=== PATIENT | female | born 1940 | race Caucasian/White ===

== ENCOUNTER 2016-03-08 15:28 | Inpatient (IN) | payer MEDICARE, OTHER ==
[2016-03-08] MEDS ORDERED: [UNRECOGNIZED DRUG - OTHER] IV SCH (19:15)
[2016-03-08] MEDS ORDERED: Ondansetron HCl/PF 4 MG/2 ML Vial IVP PRN (19:15)
[2016-03-08] MEDS ORDERED: Bisacodyl 10 MG SUPP PR PRN (19:15)
[2016-03-08] MEDS ORDERED: SOD CHLORIDE IV SCH (19:15)
[2016-03-08] MEDS ORDERED: VANCOMYCIN IV SCH (19:15)
[2016-03-08] MEDS ORDERED: Milk Of Magnesia 30 ML UDCUP PO PRN (19:34)
[2016-03-08] MEDS ORDERED: Nicotine 21 MG PATCH TD SCH (20:00)
[2016-03-08] MEDS: traMADol HCl 50 MG TAB PO PRN (20:16)
[2016-03-08] MEDS: Gabapentin 300 MG CAP PO SCH (20:18)
[2016-03-08] MEDS: traZODone HCl 50 MG TAB PO SCH (20:18)
[2016-03-08] MEDS: Simvastatin 10 MG TAB PO SCH (20:19)
[2016-03-08 20:48] LABS: Vancomycin, Random 23.9 ug/mL (See Comment)
[2016-03-08 20:50] LABS: Anion Gap 11 mmol/L (10-20); BUN (Urea Nitrogen) 23 mg/dL (9.8-20.1); Calc. Creatinine Clearance 51 mL/min (70-130); Calcium 8.3 mg/dL (7.8-10.44); Carbon Dioxide 24 mmol/L (23-31); Chloride 106 mmol/L (98-107); Estimated GFR-MDRD 57
[2016-03-08] MEDS ORDERED: Docusate 100 MG CAP PO PRN (21:00)
[2016-03-09 05:10] LABS: #Basophils 0.1 thou/uL (0.0-0.2); #Eosinphils 0.2 thou/uL (0.0-0.7); #Lymphocytes 0.5 thou/uL (1.20-3.40); #Monocytes 0.4 thou/uL (0.11-0.59); #Neutrophils 4.3 thou/uL (1.40-6.50); %Basophils 1.2 % (0.0-1.0); %Eosinophils 4.1 % (0.0-10.0); %Lymphocytes 9.8 % (21.0-51.0); %Monocytes 6.9 % (0.0-10.0); Hematocrit 32.9 % (36.0-47.0); Mean Platelet Volume 6.5 fL (7.4-10.4); Red Blood Cell (RBC) Count 3.68 mill/uL (4.20-5.40); White Blood Cell (WBC) Count 5.5 thou/uL (4.8-10.8)
[2016-03-09 05:30] LABS: ALT (SGPT) 9 U/L (0-55); AST (SGOT) 11 U/L (5-34); Alkaline Phosphatase 56 U/L (40-150); Anion Gap 11 mmol/L (10-20); BUN (Urea Nitrogen) 19 mg/dL (9.8-20.1); Bilirubin, Total 0.2 mg/dL (0.2-1.2); Calc. Creatinine Clearance 57 mL/min (70-130); Calcium 8.6 mg/dL (7.8-10.44); Carbon Dioxide 26 mmol/L (23-31); Chloride 106 mmol/L (98-107); Estimated GFR-MDRD 66; Globulin 2.7 g/dL (2.4-3.5); Protein, Total 5.3 g/dL (5.8-8.1)
[2016-03-09] MEDS ORDERED: Sodium Chloride 0.9% 10 ML ONE ×2 (08:05→19:54)
[2016-03-09] MEDS: Cefepime 1 GM in Sodium Chloride 0.9% 100 ML IVPB SCH ×2 (08:15→20:01)
[2016-03-09] MEDS: CeleCOXIB 100 MG CAP PO SCH (08:16)
[2016-03-09] MEDS: Furosemide 40 MG TAB PO SCH (08:17)
[2016-03-09] MEDS: Enoxaparin Sodium 30 MG/0.3 ML SYRINGE SC SCH (08:17)
[2016-03-09] MEDS: Gabapentin 300 MG CAP PO SCH ×3 (08:17→20:31)
[2016-03-09] MEDS: tiZANidine HCl 4 MG TAB PO SCH (08:18)
[2016-03-09] MEDS: traMADol HCl 50 MG TAB PO PRN ×3 (08:18→20:32)
[2016-03-09] MEDS: Potassium Chloride 20 MEQ TAB PO SCH (08:18)
[2016-03-09] MEDS ORDERED: VANCOMYCIN IVPB PRN (09:39)
[2016-03-09] MEDS: Nicotine 21 MG PATCH TD SCH (10:39)
[2016-03-09] MEDS: Vancomycin HCl 750 MG in Sodium Chloride 0.9% 250 ML 250 ML IVPB SCH (10:39)
[2016-03-09] MEDS: Vancomycin HCl 500 MG in Sodium Chloride 0.9% 100 ML IVPB SCH (10:39)
[2016-03-09] MEDS ORDERED: Artificial Tear Sol 15 ML BOT EA EYE PRN (13:33)
--- NOTE | 2016-03-09 16:15 | HP ---
CHIEF COMPLAINTS: Right total knee infection, status post removal of hardware and replacement of spacers and antibiotic beads for long-term IV antibiotics. HISTORY OF PRESENT ILLNESS: This is a 75-year-old female who had a right knee replacement and then had to have a revision of the right knee replacement because of loosening, which occurred in October. She apparently fell few weeks after ruptured her quadriceps tendon, which had to be repaired. She apparently presented with knee pain and was noticed to have infection. Her implant was removed. Beads and iron spaces were placed and Infectious Disease was consulted. She is going Peptoniphilus in the anaerobic cultures and the recommendation is for 6 weeks of IV antibiotics, total with vancomycin and Maxipime. She is currently doing well. Denies any complaints, toe touch weightbearing. She apparently was able to sit in a chair, tolerating her diet and does have some diarrhea. Denies any fever or chills. Pain is well controlled with tramadol. PAST MEDICAL HISTORY: 1. Dyslipidemia 2. Depression 3. DJD 4. GERD 5. Peripheral neuropathy 6. IBS PAST SURGICAL HISTORY: 1. Multiple joint replacements. 2. Normal cardiac catheterization. 3. Cholecystectomy. 4. Apparently, history of kidney stone with removal. ALLERGIES: PHENOBARBITAL and AUGMENTIN. FAMILY HISTORY: Coronary artery disease. MEDICATIONS: She has been transferred here on the following medications; 1. Maxipime 1 gram IV b.i.d. 2. Celebrex 200 mg daily. 3. Bentyl 10 mg t.i.d. 4. Colace 100 mg b.i.d. 5. Lovenox 30 mg subcutaneous daily. 6. Lasix 40 mg daily. 7. Gabapentin 600 mg t.i.d. 8. Nicotine patch 21 mg daily. 9. Oxycodone 5 mg q.6 hours p.r.n. 10. Protonix 40 mg daily. 11. Potassium 20 mEq daily. 12. Sertraline 50 mg b.i.d. 13. Simvastatin 10 mg daily. 14. Tizanidine 4 mg daily. 15. Tramadol 100 mg q.i.d. 16. Trazodone 50 mg at bedtime. 17. Vancomycin 1.25 grams IV daily. PSYCHOSOCIAL HISTORY: She is a smoker. Currently in a nicotine patch, but no alcohol or IV drug abuse. REVIEW OF SYSTEMS: CARDIOVASCULAR: Denies any chest pain, shortness of breath, palpitations, paroxysmal nocturnal dyspnea, orthopnea, pedal edema. RESPIRATORY: Denies any chronic cough, expectoration or pleuritic type chest pain. GASTROINTESTINAL: Denies any nausea, vomiting, diarrhea, constipation, hematemesis, melena, hematochezia. GENITOURINARY: Denies any frequency, urgency, dysuria or hematuria. 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 HEENT: No diffuse speech and eating or swallowing. PHYSICAL EXAMINATION: GENERAL: A very pleasant 75-year-old female resting comfortably, in no acute distress. She responds appropriately to questions. She is alert, awake and oriented x3. VITAL SIGNS: She is afebrile. Heart rate is 61, respirations are 18, blood pressure is 142/61 and oxygen saturation is 93%. HEENT: Normocephalic and atraumatic. Pupils are equal and reactive to light and accommodation. NECK: No JVD, thyromegaly, cervical adenopathy, throat exudates or carotid bruits. CARDIOVASCULAR SYSTEM: S1 and S2+. Rate and rhythm regular. RESPIRATORY SYSTEM: Normal vesicular breath sounds heard in all lung [place]. ABDOMEN: Soft and nontender. Bowel sounds heard in all quadrants. EXTREMITIES: Right knee with dressing and knee immobilizer. No neurovascular compromise. CENTRAL NERVOUS SYSTEM: Grossly nonfocal. LABORATORY VALUES: Done this morning shows a white count of 5.5, H\T\H is 10.5 and 32.9. Sed rate is 92. Chemistry shows a sodium of 139, potassium of 4.1, BUN and creatinine are 19 and 1.84. CRP is 0.6, AST and ALT are normal. Vancomycin random was 23.9. IMPRESSION: 1. Right total knee infection, prosthetic infection, status post removal of prosthesis and placement of antibiotic beads. 2. Right quadriceps rupture, status post repair. 3. Irritable bowel syndrome. 4. Degenerative joint disease. 5. Dyslipidemia. 6. Depression. PLAN: 1. Continue current medications. 2. Vancomycin levels to be adjusted by pharmacy. 3. DVT and stress ulcer prophylaxis. 4. Decubitus precautions. 5. Bowel regimen. 6. Probiotics. 7. Weekly CBC, CRP, CMP and sed rate. 8. Outpatient follow up with Dr. Baptiste, in 2 weeks. 9. Therapy with weightbearing restrictions per Dr. Baptiste. 10. Discussed with the patient in detail and all questions answered. MTDD
[2016-03-09] MEDS: Simvastatin 10 MG TAB PO SCH (20:32)
[2016-03-09] MEDS: traZODone HCl 50 MG TAB PO SCH (20:32)
[2016-03-10] MEDS: traMADol HCl 50 MG TAB PO PRN ×4 (05:36→22:04)
[2016-03-10] MEDS: Cefepime 1 GM in Sodium Chloride 0.9% 100 ML IVPB SCH ×2 (08:20→20:22)
[2016-03-10] MEDS: CeleCOXIB 100 MG CAP PO SCH (08:21)
[2016-03-10] MEDS: Gabapentin 300 MG CAP PO SCH ×3 (08:22→20:21)
[2016-03-10] MEDS: Potassium Chloride 20 MEQ TAB PO SCH (08:22)
[2016-03-10] MEDS: Enoxaparin Sodium 30 MG/0.3 ML SYRINGE SC SCH (08:22)
[2016-03-10] MEDS: Furosemide 40 MG TAB PO SCH (08:22)
[2016-03-10] MEDS: Saccharomyces boulardii 250 MG CAP PO SCH (08:22)
[2016-03-10] MEDS: tiZANidine HCl 4 MG TAB PO SCH (08:23)
[2016-03-10 09:26] LABS: Vancomycin, Trough 20.3 ug/mL
[2016-03-10] MEDS: Vancomycin HCl 750 MG in Sodium Chloride 0.9% 250 ML 250 ML IVPB SCH (10:17)
[2016-03-10] MEDS: Nicotine 21 MG PATCH TD SCH (10:17)
[2016-03-10] MEDS: Vancomycin HCl 500 MG in Sodium Chloride 0.9% 100 ML IVPB SCH (10:18)
--- NOTE | 2016-03-10 13:09 | PRG ---
DATE OF PROGRESS NOTE: 03/10/2016 SUBJECTIVE: Ms. Cruz is doing well. Denies any complaints, resting comfortably, tolerating her therapy and her antibiotics. Denies any concerns. OBJECTIVE: VITAL SIGNS: She is afebrile, heart rate is 63, respirations 18, oxygen saturation is 95%, blood pr essure 139/66. CARDIOVASCULAR: S1, S2 plus. RESPIRATORY: Normal vesicular breath sounds. ABDOMEN: Soft, nontender, bowel sounds heard in all quadrants. Right leg with dressing. CENTRAL N ERVOUS SYSTEM: Generalized weakness. IMPRESSION: 1. Right knee prosthetic infection requiring removal of hardware and placement of antibiotic spacer s. 2. Quadriceps tendon rupture status post repair. 3. Dyslipidemia. 4. Irritable bowel syndrome. 5. Gastroesophageal reflux disease. 6. Improving diarrhea. PLAN: 1. Continue probiotics. 2. Antibiotics for 5 weeks since admission. 3. Weekly CBC, CRP, sed rate. 4. Outpatient follow with Dr. Baptiste in 2 weeks from admission 5. Wound care. 6. DVT and stress ulcer prophylaxis. 7. Decubitus precautions.
[2016-03-10] MEDS: Simvastatin 10 MG TAB PO SCH (20:21)
[2016-03-10] MEDS: traZODone HCl 50 MG TAB PO SCH (20:22)
[2016-03-11] MEDS: traMADol HCl 50 MG TAB PO PRN ×2 (04:33→12:01)
[2016-03-11] MEDS: Cefepime 1 GM in Sodium Chloride 0.9% 100 ML IVPB SCH ×2 (08:40→20:36)
[2016-03-11] MEDS: Gabapentin 300 MG CAP PO SCH ×3 (09:10→20:36)
[2016-03-11] MEDS: CeleCOXIB 100 MG CAP PO SCH (09:12)
[2016-03-11] MEDS: Potassium Chloride 20 MEQ TAB PO SCH (09:13)
[2016-03-11] MEDS: Enoxaparin Sodium 30 MG/0.3 ML SYRINGE SC SCH (09:13)
[2016-03-11] MEDS: Saccharomyces boulardii 250 MG CAP PO SCH (09:13)
[2016-03-11] MEDS: Furosemide 40 MG TAB PO SCH (09:13)
[2016-03-11] MEDS: tiZANidine HCl 4 MG TAB PO SCH (09:13)
[2016-03-11 09:35] LABS: Vancomycin, Trough 17.4 ug/mL
[2016-03-11] MEDS: Nicotine 21 MG PATCH TD SCH (10:25)
[2016-03-11] MEDS: Vancomycin HCl 750 MG in Sodium Chloride 0.9% 250 ML 250 ML IVPB SCH (10:25)
[2016-03-11] MEDS: Vancomycin HCl 500 MG in Sodium Chloride 0.9% 100 ML IVPB SCH (11:18)
[2016-03-11] MEDS: oxyCODONE 5 MG TAB PO PRN ×2 (14:54→20:43)
[2016-03-11] MEDS: traZODone HCl 50 MG TAB PO SCH (20:34)
[2016-03-11] MEDS: Simvastatin 10 MG TAB PO SCH (20:36)
[2016-03-12] MEDS: Acetaminophen 325 MG TAB PO PRN ×2 (08:24→14:55)
[2016-03-12] MEDS: CeleCOXIB 100 MG CAP PO SCH (08:25)
[2016-03-12] MEDS: Gabapentin 300 MG CAP PO SCH ×3 (08:25→20:12)
[2016-03-12] MEDS: Furosemide 40 MG TAB PO SCH (08:25)
[2016-03-12] MEDS: tiZANidine HCl 4 MG TAB PO SCH (08:25)
[2016-03-12] MEDS: Saccharomyces boulardii 250 MG CAP PO SCH (08:25)
[2016-03-12] MEDS: Potassium Chloride 20 MEQ TAB PO SCH (08:25)
[2016-03-12] MEDS: Cefepime 1 GM in Sodium Chloride 0.9% 100 ML IVPB SCH ×2 (08:25→20:13)
[2016-03-12] MEDS: traMADol HCl 50 MG TAB PO PRN ×2 (08:26→14:55)
[2016-03-12] MEDS: Enoxaparin Sodium 30 MG/0.3 ML SYRINGE SC SCH (08:26)
[2016-03-12] MEDS: Vancomycin HCl 750 MG in Sodium Chloride 0.9% 250 ML 250 ML IVPB SCH (10:46)
[2016-03-12] MEDS: Vancomycin HCl 500 MG in Sodium Chloride 0.9% 100 ML IVPB SCH (10:47)
[2016-03-12] MEDS: Nicotine 21 MG PATCH TD SCH (10:55)
[2016-03-12] MEDS: oxyCODONE 5 MG TAB PO PRN ×2 (10:58→20:13)
--- NOTE | 2016-03-12 15:28 | PRG ---
DATE OF SERVICE: 03/12/2016 SUBJECTIVE: The patient feels well, sitting up in the chair and watching TV. States that she has n o pain in her legs at rest. She is eating well, sleeping well with no complaints. OBJECTIVE: Shows her blood pressure 125/92, temperature 97, pulse 64, respirations 18, O2 sats 96%. Lungs are clear. Cardiac examination shows regular rhythm. Abdomen is soft and nontender. Skin and extremities show right leg and knee immobilizer with good pedal pulses. ASSESSMENT: Resolving right prosthetic knee infection with removal of hardware and placement of ant ibiotic spacers on antibiotics for 5 weeks. PLAN: Continue DVT and stress ulcer prophylaxis. Continue IV cefepime and vancomycin, pharmacy to measure levels.
[2016-03-12] MEDS: traZODone HCl 50 MG TAB PO SCH (20:13)
[2016-03-12] MEDS: Simvastatin 10 MG TAB PO SCH (20:13)
[2016-03-13] MEDS: traMADol HCl 50 MG TAB PO PRN ×2 (06:59→14:22)
[2016-03-13] MEDS: Cefepime 1 GM in Sodium Chloride 0.9% 100 ML IVPB SCH ×2 (08:22→21:00)
[2016-03-13] MEDS: Enoxaparin Sodium 30 MG/0.3 ML SYRINGE SC SCH (08:23)
[2016-03-13] MEDS: Gabapentin 300 MG CAP PO SCH ×3 (08:24→21:03)
[2016-03-13] MEDS: Saccharomyces boulardii 250 MG CAP PO SCH (08:24)
[2016-03-13] MEDS: Furosemide 40 MG TAB PO SCH (08:24)
[2016-03-13] MEDS: Potassium Chloride 20 MEQ TAB PO SCH (08:24)
[2016-03-13] MEDS: CeleCOXIB 100 MG CAP PO SCH (08:24)
[2016-03-13] MEDS: Nicotine 21 MG PATCH TD SCH (08:26)
[2016-03-13] MEDS: tiZANidine HCl 4 MG TAB PO SCH (08:33)
[2016-03-13 10:21] LABS: Vancomycin, Trough 22.1 ug/mL
[2016-03-13] MEDS: Vancomycin HCl 1 GM in Sodium Chloride 0.9% 250 ML 250 ML IVPB SCH (10:45)
[2016-03-13] MEDS: HYDROcodone/Acetaminophen 10/325 mg Tablet PO PRN ×3 (10:46→21:03)
[2016-03-13] MEDS: Vancomycin HCl 750 MG in Sodium Chloride 0.9% 250 ML 250 ML IVPB SCH (10:56)
--- NOTE | 2016-03-13 11:01 | PRG ---
DATE OF SERVICE: 03/13/2016 SUBJECTIVE: The patient complains of some itching in the groin area, sacral area with some mild red rash noticed, no other complaints. Still taking oxycodone for pain with good control, but not quit e lasting 4 hours. OBJECTIVE: VITAL SIGNS: Shows blood pressure 136/67, temperature 97, pulse 54, respirations 18, O2 sats 95% on room air. EXTREMITIES: Right knee shows no swelling, redness, warmth or tenderness, some mild erythema in the groin. LUNGS: Clear. CARDIAC EXAMINATION: Displays regular rhythm, no gallops or murmurs. ASSESSMENT: 1. Resolving septic knee, status post removal of hardware with placement of spacers. No evidence f or recurrent infection at this time. 2. Possible heat rash. Will attempt to take another shower today. 3. Short controlled pain with oxycodone. We will switch to hydrocodone 10/325 to see if has extend ed pain relief.
[2016-03-13] MEDS: Simvastatin 10 MG TAB PO SCH (21:03)
[2016-03-13] MEDS: traZODone HCl 50 MG TAB PO SCH (21:03)
[2016-03-14] MEDS: HYDROcodone/Acetaminophen 10/325 mg Tablet PO PRN ×4 (06:21→21:30)
[2016-03-14] MEDS: CeleCOXIB 100 MG CAP PO SCH (08:25)
[2016-03-14] MEDS: Cefepime 1 GM in Sodium Chloride 0.9% 100 ML IVPB SCH ×2 (08:25→20:24)
[2016-03-14] MEDS: Enoxaparin Sodium 30 MG/0.3 ML SYRINGE SC SCH (08:26)
[2016-03-14] MEDS: Furosemide 40 MG TAB PO SCH (08:27)
[2016-03-14] MEDS: Gabapentin 300 MG CAP PO SCH ×3 (08:27→20:24)
[2016-03-14] MEDS: Saccharomyces boulardii 250 MG CAP PO SCH (08:27)
[2016-03-14] MEDS: Potassium Chloride 20 MEQ TAB PO SCH (08:27)
[2016-03-14] MEDS: tiZANidine HCl 4 MG TAB PO SCH (08:28)
[2016-03-14] MEDS: Nicotine 21 MG PATCH TD SCH (10:16)
[2016-03-14] MEDS: Vancomycin HCl 1 GM in Sodium Chloride 0.9% 250 ML 250 ML IVPB SCH (10:17)
[2016-03-14] MEDS: Simvastatin 10 MG TAB PO SCH (20:24)
[2016-03-14] MEDS: traZODone HCl 50 MG TAB PO SCH (20:25)
[2016-03-15] MEDS: HYDROcodone/Acetaminophen 10/325 mg Tablet PO PRN ×5 (03:46→21:56)
[2016-03-15] MEDS: traMADol HCl 50 MG TAB PO PRN (06:49)
[2016-03-15] MEDS: Cefepime 1 GM in Sodium Chloride 0.9% 100 ML IVPB SCH ×2 (08:21→20:13)
[2016-03-15] MEDS: CeleCOXIB 100 MG CAP PO SCH (08:22)
[2016-03-15] MEDS: Furosemide 40 MG TAB PO SCH (08:23)
[2016-03-15] MEDS: Enoxaparin Sodium 30 MG/0.3 ML SYRINGE SC SCH (08:23)
[2016-03-15] MEDS: Gabapentin 300 MG CAP PO SCH ×3 (08:23→20:14)
[2016-03-15] MEDS: tiZANidine HCl 4 MG TAB PO SCH (08:24)
[2016-03-15] MEDS: Potassium Chloride 20 MEQ TAB PO SCH (08:24)
[2016-03-15] MEDS: Saccharomyces boulardii 250 MG CAP PO SCH (08:24)
[2016-03-15 09:58] LABS: Vancomycin, Trough 21.4 ug/mL
[2016-03-15] MEDS: Vancomycin HCl 1 GM in Sodium Chloride 0.9% 250 ML 250 ML IVPB SCH (10:16)
[2016-03-15] MEDS: Nicotine 21 MG PATCH TD SCH (10:17)
--- NOTE | 2016-03-15 13:22 | PRG ---
DATE OF SERVICE: 03/15/2016 SUBJECTIVE: Ms. Cruz is doing well. Denies any complaints, resting comfortably, tolerating her medications. OBJECTIVE: VITAL SIGNS: She is afebrile, heart rate is 60, respirations 20, and blood pressure is 139/66. CARDIOVASCULAR: S1, S2 plus. RESPIRATORY: Normal vesicular breath sounds. ABDOMEN: Soft, nontender, bowel sounds heard in all quadrants. EXTREMITIES: Without cyanosis or clubbing. Peripheral pulses are palpable. IMPRESSION: 1. Right knee septic arthritis, status post removal of hardware and placement of antibiotic spacers . 2. Irritable bowel syndrome. 3. Dyslipidemia. 4. Gastroesophageal reflux disease. 5. Quadriceps tendon rupture, status post repair. PLAN: 1. Recheck CBC, CRP, sed rate tomorrow. 2. Continue antibiotics. 3. Pharmacy to adjust vancomycin dosing. 4. Monitor for diarrhea. 5. DVT and stress ulcer prophylaxis. 6. Decubitus precautions. 7. Physical therapy discussed with patient in detail.
[2016-03-15] MEDS: traZODone HCl 50 MG TAB PO SCH (20:14)
[2016-03-15] MEDS: Simvastatin 10 MG TAB PO SCH (20:14)
[2016-03-16] MEDS: HYDROcodone/Acetaminophen 10/325 mg Tablet PO PRN ×3 (05:50→20:18)
[2016-03-16] MEDS: Potassium Chloride 20 MEQ TAB PO SCH (08:21)
[2016-03-16] MEDS: Enoxaparin Sodium 30 MG/0.3 ML SYRINGE SC SCH (08:21)
[2016-03-16] MEDS: Saccharomyces boulardii 250 MG CAP PO SCH (08:21)
[2016-03-16] MEDS: CeleCOXIB 100 MG CAP PO SCH (08:22)
[2016-03-16] MEDS: Furosemide 40 MG TAB PO SCH (08:22)
[2016-03-16] MEDS: Gabapentin 300 MG CAP PO SCH ×3 (08:22→20:17)
[2016-03-16] MEDS: tiZANidine HCl 4 MG TAB PO SCH (08:22)
[2016-03-16] MEDS: Cefepime 1 GM in Sodium Chloride 0.9% 100 ML IVPB SCH ×2 (08:23→20:17)
[2016-03-16] MEDS: Nicotine 21 MG PATCH TD SCH (08:23)
[2016-03-16 09:11] LABS: #Eosinphils 0.3 thou/uL (0.0-0.7); #Lymphocytes 0.6 thou/uL (1.20-3.40); #Monocytes 0.2 thou/uL (0.11-0.59); #Neutrophils 4.3 thou/uL (1.40-6.50); %Basophils 0.7 % (0.0-1.0); %Eosinophils 4.8 % (0.0-10.0); %Lymphocytes 10.8 % (21.0-51.0); %Monocytes 2.7 % (0.0-10.0); Hematocrit 38.1 % (36.0-47.0); Mean Platelet Volume 7.1 fL (7.4-10.4); White Blood Cell (WBC) Count 5.3 thou/uL (4.8-10.8)
[2016-03-16 09:21] LABS: Vancomycin, Trough 22.2 ug/mL
[2016-03-16 09:33] LABS: ALT (SGPT) 13 U/L (0-55); AST (SGOT) 13 U/L (5-34); Alkaline Phosphatase 81 U/L (40-150); Anion Gap 13 mmol/L (10-20); BUN (Urea Nitrogen) 30 mg/dL (9.8-20.1); Bilirubin, Total 0.3 mg/dL (0.2-1.2); Calc. Creatinine Clearance 43 mL/min (70-130); Calcium 9.2 mg/dL (7.8-10.44); Carbon Dioxide 24 mmol/L (23-31); Chloride 108 mmol/L (98-107); Estimated GFR-MDRD 48; Globulin 3.1 g/dL (2.4-3.5); Protein, Total 6.1 g/dL (5.8-8.1)
[2016-03-16] MEDS: Vancomycin HCl 750 MG in Sodium Chloride 0.9% 250 ML 250 ML IVPB SCH (10:39)
[2016-03-16] MEDS: Simvastatin 10 MG TAB PO SCH (20:18)
[2016-03-16] MEDS: traZODone HCl 50 MG TAB PO SCH (20:18)
[2016-03-17] MEDS: HYDROcodone/Acetaminophen 10/325 mg Tablet PO PRN ×3 (05:23→19:07)
[2016-03-17] MEDS: Cefepime 1 GM in Sodium Chloride 0.9% 100 ML IVPB SCH ×2 (08:55→20:11)
[2016-03-17] MEDS: Gabapentin 300 MG CAP PO SCH ×3 (09:04→20:12)
[2016-03-17] MEDS: CeleCOXIB 100 MG CAP PO SCH (09:06)
[2016-03-17] MEDS: Furosemide 40 MG TAB PO SCH (09:06)
[2016-03-17] MEDS: Saccharomyces boulardii 250 MG CAP PO SCH (09:06)
[2016-03-17] MEDS: Potassium Chloride 20 MEQ TAB PO SCH (09:06)
[2016-03-17] MEDS: tiZANidine HCl 4 MG TAB PO SCH (09:07)
[2016-03-17] MEDS: Enoxaparin Sodium 30 MG/0.3 ML SYRINGE SC SCH (09:07)
--- NOTE | 2016-03-17 09:53 | PRG ---
DATE OF SERVICE: 03/17/2016 SUBJECTIVE: Ms. Cruz is doing well. Denies any complaints. Discussed with nursing and she appa rently has been emotional, has been having some crying spells. Aleta, the nurse reviewed her home medication list again and noticed that she was not on the gabapentin and Xanax that she was taking p rior to admission. I went and discussed that with the patient and she confirmed that she was taking both. I will get her started back on those medicines and see how she does. I explained to her carlos t her laboratory values shows that the infection is improving. She denies any other concerns. OBJECTIVE: VITAL SIGNS: She is afebrile, heart rate is 73, respirations 16, oxygen saturation 93%, blood press ure 158/67. CARDIOVASCULAR: S1, S2 plus. RESPIRATORY: Normal vesicular breath sounds. ABDOMEN: Soft, nontender, bowel sounds heard in all quadrants. EXTREMITIES: Without cyanosis or clubbing. Right leg immobilizer in place. LABORATORY VALUES: White count is 5.3, H\T\H is 12.0 and 38.1. Sed rate is down to 67 from 92. So dium 141, potassium 4.4, BUN and creatinine 30 and 1.1. CRP is less than 0.50. IMPRESSION: 1. Right knee septic arthritis for long-term IV antibiotics. 2. Anxiety. 3. Irritable bowel syndrome. 4. Dyslipidemia. 5. Gastroesophageal reflux disease. PLAN: 1. Resume Wellbutrin 150 mg daily and Xanax 0.25 mg p.o. t.i.d. p.r.n. 2. Continue current medications. 3. Her BUN and creatinine were slightly elevated, increased p.o. intake and will recheck WILNER schwarz. 4. Continue weightbearing restrictions and therapy. 5. Nutritional support. 6. No family at the bedside.
[2016-03-17] MEDS: Bupropion 150 MG XL TAB PO SCH (09:55)
[2016-03-17] MEDS: ALPRAZolam 0.25 MG TAB PO PRN ×3 (10:18→20:13)
[2016-03-17] MEDS: Vancomycin HCl 750 MG in Sodium Chloride 0.9% 250 ML 250 ML IVPB SCH (10:19)
[2016-03-17] MEDS: Nicotine 21 MG PATCH TD SCH (10:19)
[2016-03-17] MEDS: Simvastatin 10 MG TAB PO SCH (20:12)
[2016-03-17] MEDS: traZODone HCl 50 MG TAB PO SCH (20:13)
[2016-03-18] MEDS: HYDROcodone/Acetaminophen 10/325 mg Tablet PO PRN ×3 (06:43→19:16)
[2016-03-18] MEDS: Cefepime 1 GM in Sodium Chloride 0.9% 100 ML IVPB SCH ×2 (08:26→20:24)
[2016-03-18] MEDS: Bupropion 150 MG XL TAB PO SCH (08:26)
[2016-03-18] MEDS: Enoxaparin Sodium 30 MG/0.3 ML SYRINGE SC SCH (08:27)
[2016-03-18] MEDS: Furosemide 40 MG TAB PO SCH (08:27)
[2016-03-18] MEDS: CeleCOXIB 100 MG CAP PO SCH (08:27)
[2016-03-18] MEDS: Gabapentin 300 MG CAP PO SCH ×3 (08:28→20:27)
[2016-03-18] MEDS: Potassium Chloride 20 MEQ TAB PO SCH (08:28)
[2016-03-18] MEDS: Saccharomyces boulardii 250 MG CAP PO SCH (08:28)
[2016-03-18] MEDS: tiZANidine HCl 4 MG TAB PO SCH (08:28)
[2016-03-18 09:30] LABS: Vancomycin, Trough 18.2 ug/mL
[2016-03-18 09:45] LABS: Anion Gap 13 mmol/L (10-20); BUN (Urea Nitrogen) 32 mg/dL (9.8-20.1); Calc. Creatinine Clearance 53 mL/min (70-130); Carbon Dioxide 24 mmol/L (23-31); Chloride 111 mmol/L (98-107); Estimated GFR-MDRD 60
[2016-03-18] MEDS: Nicotine 21 MG PATCH TD SCH (09:57)
[2016-03-18] MEDS: Vancomycin HCl 750 MG in Sodium Chloride 0.9% 250 ML 250 ML IVPB SCH (09:57)
[2016-03-18] MEDS: Simvastatin 10 MG TAB PO SCH (20:26)
[2016-03-18] MEDS: traZODone HCl 50 MG TAB PO SCH (22:04)
[2016-03-19] MEDS: HYDROcodone/Acetaminophen 10/325 mg Tablet PO PRN ×3 (05:57→18:01)
[2016-03-19] MEDS: Cefepime 1 GM in Sodium Chloride 0.9% 100 ML IVPB SCH ×2 (08:27→20:04)
[2016-03-19] MEDS: CeleCOXIB 100 MG CAP PO SCH (08:28)
[2016-03-19] MEDS: Bupropion 150 MG XL TAB PO SCH (08:28)
[2016-03-19] MEDS: Enoxaparin Sodium 30 MG/0.3 ML SYRINGE SC SCH (08:29)
[2016-03-19] MEDS: Gabapentin 300 MG CAP PO SCH ×3 (08:29→20:46)
[2016-03-19] MEDS: Furosemide 40 MG TAB PO SCH (08:29)
[2016-03-19] MEDS: Potassium Chloride 20 MEQ TAB PO SCH (08:29)
[2016-03-19] MEDS: Saccharomyces boulardii 250 MG CAP PO SCH (08:30)
[2016-03-19] MEDS: tiZANidine HCl 4 MG TAB PO SCH (08:30)
[2016-03-19] MEDS: Nicotine 21 MG PATCH TD SCH (09:44)
[2016-03-19] MEDS: Vancomycin HCl 750 MG in Sodium Chloride 0.9% 250 ML 250 ML IVPB SCH (09:44)
[2016-03-19] MEDS: Simvastatin 10 MG TAB PO SCH (20:46)
[2016-03-19] MEDS: traZODone HCl 50 MG TAB PO SCH (22:06)
[2016-03-20] MEDS: HYDROcodone/Acetaminophen 10/325 mg Tablet PO PRN ×4 (02:43→20:02)
[2016-03-20 03:18] VITALS: BMI 22.4
--- NOTE | 2016-03-20 05:40 | PRG ---
DATE OF SERVICE: 03/19/2016 HISTORY OF PRESENT ILLNESS: Ms. Cruz is a 75-year-old white female with a right knee infection on IV antibiotics. We had a long discussion today and she has been emotional and having some increased crying spells. We talked about increasing her Wellbutrin from 150-300 mg and we will continue doing that. VITAL SIGNS: Today reveal blood pressure is 120/50, pulse 60-70, respirations 16-20, O2 sat 92%-94% on room air, temperature max is 98.0. PHYSICAL EXAMINATION: GENERAL: This is a well-developed, well-nourished, very pleasant white female in no apparent distress at this time. HEENT: Reveals normocephalic, nontraumatic cranium. Pupils are equally round and reactive. Extraocular movements intact. Nose and throat are slightly dry. NECK: Supple, without masses, nodes or bruits. CHEST: Clear to auscultation. No rales, rhonchi or wheezes are heard. HEART: Reveals a regular rate and rhythm without murmurs, gallops or rubs. ABDOMEN: Scaphoid, soft, nontender, without organomegaly, normal bowel sounds are noted. No rebound or guarding is noted. : Deferred. EXTREMITIES: Reveal right leg immobilizer in place. IMPRESSION: 1. Septic right knee, long-term IV antibiotics. 2. Anxiety depressive disorder. 3. Irritable bowel syndrome. 4. Dyslipidemia. 5. Gastroesophageal reflux. PLAN: 1. Increase her Wellbutrin from 150 to 300 q.a.m. 2. Continue to follow labs as needed. 3. Continue weightbearing, restrictions in therapy. 4. Continue to encourage the patient to eat. 5. Deep venous thrombosis and stress ulcer prophylaxis. 6. Decubitus precautions. 7. Continue physical therapy and occupational therapy. [facility]
[2016-03-20] MEDS: Cefepime 1 GM in Sodium Chloride 0.9% 100 ML IVPB SCH ×2 (08:07→20:04)
[2016-03-20] MEDS: CeleCOXIB 100 MG CAP PO SCH (08:08)
[2016-03-20] MEDS: Bupropion 150 MG XL TAB PO SCH (08:08)
[2016-03-20] MEDS: Enoxaparin Sodium 30 MG/0.3 ML SYRINGE SC SCH (08:10)
[2016-03-20] MEDS: Saccharomyces boulardii 250 MG CAP PO SCH (08:11)
[2016-03-20] MEDS: Furosemide 40 MG TAB PO SCH (08:11)
[2016-03-20] MEDS: Gabapentin 300 MG CAP PO SCH ×3 (08:11→20:40)
[2016-03-20] MEDS: Potassium Chloride 20 MEQ TAB PO SCH (08:11)
[2016-03-20] MEDS: tiZANidine HCl 4 MG TAB PO SCH (08:12)
[2016-03-20 10:10] LABS: Vancomycin, Trough 16.8 ug/mL
[2016-03-20] MEDS: Nicotine 21 MG PATCH TD SCH (10:45)
[2016-03-20] MEDS: Vancomycin HCl 750 MG in Sodium Chloride 0.9% 250 ML 250 ML IVPB SCH (10:46)
--- NOTE | 2016-03-20 17:21 | PRG ---
DATE OF SERVICE: 03/20/2016 DATE OF ADMISSION: 03/08/2016 HISTORY OF PRESENT ILLNESS: Ms. Cruz is a 75-year-old white female with the right knee infection , presently on IV antibiotics. She states she is feeling better. She is glad that we have increase d her Wellbutrin. She said Dr. Iyer had decreased it from 300 to 150 before she started having a ll these problems. She feels that they would do a good job for her. OBJECTIVE: VITAL SIGNS: Today reveal a blood pressure this morning somewhat elevated 171/72, pulse 58-64, resp irations 16-20, O2 sat 92% to 96% on room air, t-max is 97.0. GENERAL: This is a well-developed, well-nourished, very pleasant white female in no apparent distre ss at this time. HEENT: Reveals normocephalic, nontraumatic cranium. Pupils are equally round and reactive. Extrao cular movements are intact. Nose and throat are slightly dry. NECK: Supple, without masses, nodes or bruits. CHEST: Clear to auscultation. No rales, rhonchi or wheezes are heard. CARDIOVASCULAR: Reveals a regular rate and rhythm without murmurs, gallops or rubs. ABDOMEN: Soft, nontender, without organomegaly, normal bowel sounds are noted. No rebound or guard ing is noted. : Deferred. EXTREMITIES: Leg is still in the right knee immobilizer. She continues to get her IV antibiotics. She has no complaints today. IMPRESSION: 1. Septic right knee, long-term IV antibiotics. 2. Anxiety depressive disorder. 3. Irritable bowel syndrome. 4. Dyslipidemia. 5. Gastroesophageal reflux. PLAN: 1. Her Wellbutrin has been increased from 150 to 300 mg every morning. 2. Continue to follow her labs as needed. 3. Continue weightbearing restrictions and therapy. 4. Encourage the patient needs. 5. Continue DVT and stress ulcer prophylaxis. 6. Continue physical therapy and occupational therapy. 7. Continue decubitus precautions.
[2016-03-20] MEDS: Simvastatin 10 MG TAB PO SCH (20:40)
[2016-03-20] MEDS: traZODone HCl 50 MG TAB PO SCH (22:12)
[2016-03-21] MEDS: HYDROcodone/Acetaminophen 10/325 mg Tablet PO PRN ×3 (05:47→20:28)
[2016-03-21] MEDS: Enoxaparin Sodium 30 MG/0.3 ML SYRINGE SC SCH (08:04)
[2016-03-21] MEDS: Cefepime 1 GM in Sodium Chloride 0.9% 100 ML IVPB SCH ×2 (08:04→20:26)
[2016-03-21] MEDS: Saccharomyces boulardii 250 MG CAP PO SCH (08:04)
[2016-03-21] MEDS: tiZANidine HCl 4 MG TAB PO SCH (08:05)
[2016-03-21] MEDS: CeleCOXIB 100 MG CAP PO SCH (08:05)
[2016-03-21] MEDS: Gabapentin 300 MG CAP PO SCH ×3 (08:05→20:27)
[2016-03-21] MEDS: Potassium Chloride 20 MEQ TAB PO SCH (08:05)
[2016-03-21] MEDS: Furosemide 40 MG TAB PO SCH (08:05)
[2016-03-21] MEDS: Bupropion 150 MG XL TAB PO SCH (08:06)
[2016-03-21] MEDS: Nicotine 21 MG PATCH TD SCH (08:06)
[2016-03-21] MEDS: ALPRAZolam 0.25 MG TAB PO PRN ×2 (08:19→20:28)
[2016-03-21] MEDS: Vancomycin HCl 750 MG in Sodium Chloride 0.9% 250 ML 250 ML IVPB SCH (10:33)
[2016-03-21] MEDS: Simvastatin 10 MG TAB PO SCH (20:27)
[2016-03-21] MEDS: traZODone HCl 50 MG TAB PO SCH (20:28)
[2016-03-22] MEDS: HYDROcodone/Acetaminophen 10/325 mg Tablet PO PRN ×3 (04:49→20:31)
[2016-03-22] MEDS: Furosemide 40 MG TAB PO SCH (08:37)
[2016-03-22] MEDS: Gabapentin 300 MG CAP PO SCH ×3 (08:37→20:30)
[2016-03-22] MEDS: Cefepime 1 GM in Sodium Chloride 0.9% 100 ML IVPB SCH ×2 (08:37→20:28)
[2016-03-22] MEDS: ALPRAZolam 0.25 MG TAB PO PRN ×3 (08:37→20:31)
[2016-03-22] MEDS: tiZANidine HCl 4 MG TAB PO SCH (08:38)
[2016-03-22] MEDS: CeleCOXIB 100 MG CAP PO SCH (08:38)
[2016-03-22] MEDS: Nicotine 21 MG PATCH TD SCH (08:38)
[2016-03-22] MEDS: Bupropion 150 MG XL TAB PO SCH (08:38)
[2016-03-22] MEDS: Potassium Chloride 20 MEQ TAB PO SCH (08:38)
[2016-03-22] MEDS: Saccharomyces boulardii 250 MG CAP PO SCH (08:38)
[2016-03-22] MEDS: Enoxaparin Sodium 30 MG/0.3 ML SYRINGE SC SCH (08:52)
[2016-03-22] MEDS: Vancomycin HCl 750 MG in Sodium Chloride 0.9% 250 ML 250 ML IVPB SCH (10:30)
--- NOTE | 2016-03-22 18:17 | PRG ---
DATE OF SERVICE: 03/22/2016 SUBJECTIVE: Ms. Cruz is doing well. Denies any complaints, resting comfortably. Looked at her wound , there is some slight dehiscence of her knee incision. She had some serous drainage ye sterday, not very much today. No erythema, no fever or chills. No warmth. OBJECTIVE: VITAL SIGNS: She is afebrile, heart rate is 69, respirations are 18, blood pressure 141/68, oxygen saturation is 98%. CARDIOVASCULAR: S1 and S2 plus. RESPIRATORY: Normal vesicular breath sounds. ABDOMEN: Soft, nontender, bowel sounds heard in all quadrants. EXTREMITIES: Without cyanosis or clubbing. IMPRESSION: 1. Right knee septic arthritis, requiring removal of hardware and placement of antibiotic spacers. 2. Improve depression. 3. Irritable bowel syndrome. 4. Dyslipidemia. 5. Gastroesophageal reflux disease. PLAN: 1. Continue current medications. 2. Await response from Dr. Baptiste. 3. Recheck a weekly laboratory values tomorrow. 4. Reinforced the patient the need for immobilizer and keeping the leg straight. 5. Nutritional support. 6. DVT and stress ulcer prophylaxis.
[2016-03-22] MEDS ORDERED: Cefepime 1 GM VIAL ONE (20:20)
[2016-03-22] MEDS: Simvastatin 10 MG TAB PO SCH (20:30)
[2016-03-22] MEDS: traZODone HCl 50 MG TAB PO SCH (20:31)
[2016-03-23] MEDS: HYDROcodone/Acetaminophen 10/325 mg Tablet PO PRN ×5 (03:40→20:38)
[2016-03-23] MEDS: Bupropion 150 MG XL TAB PO SCH (08:24)
[2016-03-23] MEDS: Furosemide 40 MG TAB PO SCH (08:25)
[2016-03-23] MEDS: Saccharomyces boulardii 250 MG CAP PO SCH (08:25)
[2016-03-23] MEDS: Gabapentin 300 MG CAP PO SCH ×3 (08:25→20:35)
[2016-03-23] MEDS: Enoxaparin Sodium 30 MG/0.3 ML SYRINGE SC SCH (08:25)
[2016-03-23] MEDS: tiZANidine HCl 4 MG TAB PO SCH (08:26)
[2016-03-23] MEDS ORDERED: Cefepime 1 GM VIAL ONE (08:53)
[2016-03-23] MEDS ORDERED: CeleCOXIB 100 MG CAP ONE (08:55)
[2016-03-23] MEDS ORDERED: Potassium Chloride 20 MEQ TAB ONE (08:56)
[2016-03-23] MEDS: Cefepime 1 GM in Sodium Chloride 0.9% 100 ML IVPB SCH ×2 (09:02→20:25)
[2016-03-23] MEDS: CeleCOXIB 100 MG CAP PO SCH (09:03)
[2016-03-23] MEDS: Potassium Chloride 20 MEQ TAB PO SCH (09:04)
[2016-03-23 09:51] LABS: #Basophils 0.1 thou/uL (0.0-0.2); #Eosinphils 0.4 thou/uL (0.0-0.7); #Lymphocytes 0.5 thou/uL (1.20-3.40); #Monocytes 0.3 thou/uL (0.11-0.59); #Neutrophils 4.4 thou/uL (1.40-6.50); %Basophils 1.1 % (0.0-1.0); %Eosinophils 6.7 % (0.0-10.0); %Lymphocytes 8.5 % (21.0-51.0); %Monocytes 5.4 % (0.0-10.0); Hematocrit 41.1 % (36.0-47.0); Mean Platelet Volume 7.9 fL (7.4-10.4); Red Blood Cell (RBC) Count 4.43 mill/uL (4.20-5.40); White Blood Cell (WBC) Count 5.7 thou/uL (4.8-10.8)
[2016-03-23 09:59] LABS: Vancomycin, Trough 16.7 ug/mL
[2016-03-23 10:10] LABS: ALT (SGPT) 16 U/L (0-55); AST (SGOT) 15 U/L (5-34); Alkaline Phosphatase 84 U/L (40-150); Anion Gap 16 mmol/L (10-20); BUN (Urea Nitrogen) 25 mg/dL (9.8-20.1); Bilirubin, Total 0.3 mg/dL (0.2-1.2); Calc. Creatinine Clearance 40 mL/min (70-130); Calcium 9.4 mg/dL (7.8-10.44); Carbon Dioxide 23 mmol/L (23-31); Chloride 110 mmol/L (98-107); Estimated GFR-MDRD 42; Protein, Total 6.4 g/dL (5.8-8.1)
[2016-03-23] MEDS: Nicotine 21 MG PATCH TD SCH (10:40)
[2016-03-23] MEDS: Vancomycin HCl 750 MG in Sodium Chloride 0.9% 250 ML 250 ML IVPB SCH (10:40)
[2016-03-23] MEDS: traZODone HCl 50 MG TAB PO SCH (20:34)
[2016-03-23] MEDS: Simvastatin 10 MG TAB PO SCH (20:36)
[2016-03-24] MEDS: HYDROcodone/Acetaminophen 10/325 mg Tablet PO PRN ×4 (02:01→20:11)
[2016-03-24] MEDS: Cefepime 1 GM in Sodium Chloride 0.9% 100 ML IVPB SCH ×2 (08:15→20:12)
[2016-03-24] MEDS: CeleCOXIB 100 MG CAP PO SCH (08:16)
[2016-03-24] MEDS: Bupropion 150 MG XL TAB PO SCH (08:16)
[2016-03-24] MEDS: Furosemide 40 MG TAB PO SCH (08:17)
[2016-03-24] MEDS: Potassium Chloride 20 MEQ TAB PO SCH (08:17)
[2016-03-24] MEDS: Gabapentin 300 MG CAP PO SCH ×3 (08:17→20:07)
[2016-03-24] MEDS: Enoxaparin Sodium 30 MG/0.3 ML SYRINGE SC SCH (08:17)
[2016-03-24] MEDS: Saccharomyces boulardii 250 MG CAP PO SCH (08:18)
[2016-03-24] MEDS: tiZANidine HCl 4 MG TAB PO SCH (08:18)
[2016-03-24] MEDS: Vancomycin HCl 750 MG in Sodium Chloride 0.9% 250 ML 250 ML IVPB SCH (09:52)
[2016-03-24] MEDS: Nicotine 21 MG PATCH TD SCH (09:52)
[2016-03-24] MEDS ORDERED: ALPRAZolam 0.25 MG TAB PO PRN (12:52)
--- NOTE | 2016-03-24 13:02 | PRG ---
DATE OF SERVICE: 03/24/2016 Ms. Cruz is doing well. Denies any complaints. Her knee incision did dehisced and physical scientist apy is managing it. I had advised nursing to contact Dr. Baptiste last Monday, but apparently it was n ot done. I have put in a communication order for nursing to make sure they contact Dr. Baptiste and inf orm him of the changes and see if she wants to see her. The wound does not show any signs of infect ion and her inflammatory markers are all trending down. No fever or chills, no pain. OBJECTIVE: VITAL SIGNS: She is afebrile, heart rate is 67, respirations 18, oxygen saturation is 95%, blood pr essure 152/70. CARDIOVASCULAR: S1, S2 plus. RESPIRATORY: Normal vesicular breath sounds. ABDOMEN: Soft, nontender, bowel sounds heard in all quadrants. EXTREMITIES: Right knee with dressing and knee immobilizer in place. No neurovascular compromise. Trace edema. LABORATORY VALUES: Sodium 144, potassium 4.8, BUN and creatinine 25 and 1.23, encouraged her to dri nk plenty of water. White count is 5.7, H\T\H is 12.9 and 41.1 with a sed rate of 46. IMPRESSION: 1. Right knee septic arthritis status post removal of hardware and placement of antibiotic spacer. 2. Wound dehiscence. 3. Anxiety. 4. Dyslipidemia. 5. Gastroesophageal reflux disease. 6. Irritable bowel syndrome. PLAN: 1. Continue current medications. 2. Contact Dr. Baptiste and inform him of the wound issues and see if she wants to see her. 3. Continue antibiotics. 4. Nutritional support. 5. DVT and stress ulcer prophylaxis. 6. She apparently has been pretty sedated with Xanax and she is not able to get up and go to the re stroom. We will cut the dose on the Xanax, it is already p.r.n. and will see how she does. We will recheck renal function on Monday.
[2016-03-24] MEDS: Simvastatin 10 MG TAB PO SCH (20:08)
[2016-03-24] MEDS: traZODone HCl 50 MG TAB PO SCH (20:10)
[2016-03-25] MEDS: HYDROcodone/Acetaminophen 10/325 mg Tablet PO PRN ×4 (03:04→20:10)
[2016-03-25] MEDS: Cefepime 1 GM in Sodium Chloride 0.9% 100 ML IVPB SCH ×2 (08:15→20:10)
[2016-03-25] MEDS: Potassium Chloride 20 MEQ TAB PO SCH (08:40)
[2016-03-25] MEDS: tiZANidine HCl 4 MG TAB PO SCH (08:40)
[2016-03-25] MEDS: Gabapentin 300 MG CAP PO SCH ×3 (08:41→20:12)
[2016-03-25] MEDS: Bupropion 150 MG XL TAB PO SCH (08:41)
[2016-03-25] MEDS: Furosemide 40 MG TAB PO SCH (08:41)
[2016-03-25] MEDS: Saccharomyces boulardii 250 MG CAP PO SCH (08:42)
[2016-03-25] MEDS: CeleCOXIB 100 MG CAP PO SCH (08:42)
[2016-03-25] MEDS: Enoxaparin Sodium 30 MG/0.3 ML SYRINGE SC SCH (08:43)
[2016-03-25] MEDS: Vancomycin HCl 750 MG in Sodium Chloride 0.9% 250 ML 250 ML IVPB SCH (09:21)
[2016-03-25] MEDS: Nicotine 21 MG PATCH TD SCH (09:22)
[2016-03-25] MEDS: traMADol HCl 50 MG TAB PO PRN (14:42)
[2016-03-25] MEDS: Simvastatin 10 MG TAB PO SCH (20:11)
[2016-03-25] MEDS: traZODone HCl 50 MG TAB PO SCH (20:12)
[2016-03-26] MEDS: HYDROcodone/Acetaminophen 10/325 mg Tablet PO PRN ×4 (04:50→20:41)
[2016-03-26] MEDS: Cefepime 1 GM in Sodium Chloride 0.9% 100 ML IVPB SCH ×2 (07:52→20:38)
[2016-03-26] MEDS: Gabapentin 300 MG CAP PO SCH ×3 (07:52→20:46)
[2016-03-26] MEDS: Bupropion 150 MG XL TAB PO SCH (07:53)
[2016-03-26] MEDS: Potassium Chloride 20 MEQ TAB PO SCH (07:53)
[2016-03-26] MEDS: Furosemide 40 MG TAB PO SCH (07:53)
[2016-03-26] MEDS: CeleCOXIB 100 MG CAP PO SCH (07:53)
[2016-03-26] MEDS: Saccharomyces boulardii 250 MG CAP PO SCH (07:54)
[2016-03-26] MEDS: Nicotine 21 MG PATCH TD SCH (07:54)
[2016-03-26] MEDS: tiZANidine HCl 4 MG TAB PO SCH (07:54)
[2016-03-26] MEDS: Enoxaparin Sodium 30 MG/0.3 ML SYRINGE SC SCH (07:57)
[2016-03-26 09:27] LABS: Anion Gap 14 mmol/L (10-20); BUN (Urea Nitrogen) 25 mg/dL (9.8-20.1); Calc. Creatinine Clearance 43 mL/min (70-130); Calcium 8.7 mg/dL (7.8-10.44); Carbon Dioxide 23 mmol/L (23-31); Chloride 108 mmol/L (98-107); Estimated GFR-MDRD 47
[2016-03-26 09:29] LABS: Vancomycin, Trough 15.6 ug/mL
[2016-03-26] MEDS: Mag-Al Plus 1200 MG/1200 MG/120 MG/30 ML UDCUP PO PRN (10:00)
[2016-03-26] MEDS: Vancomycin HCl 750 MG in Sodium Chloride 0.9% 250 ML 250 ML IVPB SCH (10:00)
--- NOTE | 2016-03-26 17:18 | PRG ---
DATE OF SERVICE: 03/26/2016 SUBJECTIVE: Ms. Cruz is doing well. Denies any complaints, resting comfortably. She is schedul ed to see Dr. Baptiste tomorrow. Physical therapy is doing the wound care. There is some wound dehisce nce, but no obvious signs of infection. OBJECTIVE: VITAL SIGNS: She is afebrile, heart rate is 58, respiration is 17, blood pressure 138/62. CARDIOVASCULAR: S1, S2 plus. RESPIRATORY: Normal vesicular breath sounds. ABDOMEN: Soft, nontender, bowel sounds heard in all quadrants. EXTREMITIES: Without cyanosis or clubbing. Peripheral pulses are palpable. RN LVN: Grossly nonfocal. Right knee with dressing and knee immobilizer. IMPRESSION: 1. Right knee septic arthritis status post removal of hardware. 2. Wound dehiscence. 3. Fluctuating BUN and creatinine. 4. Improving anxiety. 5. Dyslipidemia. 6. Gastroesophageal reflux disease. PLAN: 1. Continue IV antibiotics. 2. Recheck CBC and BMP in the morning. 3. Wound care. 4. Nutritional support. 5. Encourage p.o. fluid intake. 6. DVT and stress ulcer prophylaxis.
[2016-03-26] MEDS: traMADol HCl 50 MG TAB PO PRN (18:51)
[2016-03-26] MEDS: Acetaminophen 325 MG TAB PO PRN (18:52)
[2016-03-26] MEDS: traZODone HCl 50 MG TAB PO SCH (20:39)
[2016-03-26] MEDS: Simvastatin 10 MG TAB PO SCH (20:41)
[2016-03-27 05:44] LABS: Anion Gap 12 mmol/L (10-20); BUN (Urea Nitrogen) 28 mg/dL (9.8-20.1); Calc. Creatinine Clearance 48 mL/min (70-130); Carbon Dioxide 27 mmol/L (23-31); Chloride 106 mmol/L (98-107); Estimated GFR-MDRD 53
[2016-03-27 07:58] LABS: #Basophils 0.1 thou/uL (0.0-0.2); #Eosinphils 0.4 thou/uL (0.0-0.7); #Lymphocytes 0.5 thou/uL (1.20-3.40); #Monocytes 0.3 thou/uL (0.11-0.59); #Neutrophils 1.8 thou/uL (1.40-6.50); %Basophils 1.9 % (0.0-1.0); %Eosinophils 13.8 % (0.0-10.0); %Lymphocytes 16.3 % (21.0-51.0); %Monocytes 8.2 % (0.0-10.0); Hematocrit 35.4 % (36.0-47.0); Red Blood Cell (RBC) Count 3.91 mill/uL (4.20-5.40); White Blood Cell (WBC) Count 3.1 thou/uL (4.8-10.8)
[2016-03-27] MEDS: HYDROcodone/Acetaminophen 10/325 mg Tablet PO PRN ×2 (08:16→20:38)
[2016-03-27] MEDS: Bupropion 150 MG XL TAB PO SCH (09:16)
[2016-03-27] MEDS: Saccharomyces boulardii 250 MG CAP PO SCH (09:16)
[2016-03-27] MEDS: CeleCOXIB 100 MG CAP PO SCH (09:16)
[2016-03-27] MEDS: Gabapentin 300 MG CAP PO SCH ×3 (09:16→20:39)
[2016-03-27] MEDS: Furosemide 40 MG TAB PO SCH (09:16)
[2016-03-27] MEDS: Nicotine 21 MG PATCH TD SCH (09:17)
[2016-03-27] MEDS: Potassium Chloride 20 MEQ TAB PO SCH (09:17)
[2016-03-27] MEDS: tiZANidine HCl 4 MG TAB PO SCH (09:17)
[2016-03-27] MEDS: Enoxaparin Sodium 30 MG/0.3 ML SYRINGE SC SCH (09:17)
[2016-03-27] MEDS: Cefepime 1 GM in Sodium Chloride 0.9% 100 ML IVPB SCH ×2 (09:18→20:41)
[2016-03-27] MEDS: Vancomycin HCl 750 MG in Sodium Chloride 0.9% 250 ML 250 ML IVPB SCH (09:33)
--- NOTE | 2016-03-27 11:34 | PRG ---
DATE OF SERVICE: 03/27/2016 SUBJECTIVE: Ms. Cruz is doing well. Denies any complaints, resting comfortably. OBJECTIVE: VITAL SIGNS: She is afebrile, heart rate is 62, respirations 17, blood pressure 130/58. CARDIOVASCULAR: S1, S2 plus. RESPIRATORY: Normal vesicular breath sounds. ABDOMEN: Soft, nontender, bowel sounds heard in all quadrants. EXTREMITIES: Right knee with immobilizer, improving swelling in the right leg. LABORATORY VALUES: White count is 3.1, H\T\H is 11.7 and 35.4. Sodium 141, potassium 4.4, BUN and creatinine 28 and 1.02. IMPRESSION: 1. Right knee septic arthritis. 2. Wound dehiscence without any obvious evidence for infection. 3. Gastroesophageal reflux disease. 4. Irritable bowel syndrome. 5. Anxiety and depression. 6. Dyslipidemia. PLAN: 1. Continue IV antibiotics. 2. Appointment with Dr. Baptiste tomorrow. 3. Continue wound care. 4. Nutritional support. 5. DVT and stress ulcer prophylaxis. 6. Decubitus precautions and routine laboratory values.
[2016-03-27] MEDS: traMADol HCl 50 MG TAB PO PRN (15:11)
[2016-03-27] MEDS: Acetaminophen 325 MG TAB PO PRN (15:11)
[2016-03-27] MEDS: Mag-Al Plus 1200 MG/1200 MG/120 MG/30 ML UDCUP PO PRN (18:25)
[2016-03-27] MEDS: traZODone HCl 50 MG TAB PO SCH (20:38)
[2016-03-27] MEDS: Simvastatin 10 MG TAB PO SCH (20:39)
[2016-03-28] MEDS: HYDROcodone/Acetaminophen 10/325 mg Tablet PO PRN (05:32)
[2016-03-28 07:22] VITALS: BP 139/63; TEMP 96.5
[2016-03-28] MEDS: Cefepime 1 GM in Sodium Chloride 0.9% 100 ML IVPB SCH (07:37)
[2016-03-28] MEDS: Bupropion 150 MG XL TAB PO SCH (08:17)
[2016-03-28] MEDS: CeleCOXIB 100 MG CAP PO SCH (08:18)
[2016-03-28] MEDS: Enoxaparin Sodium 30 MG/0.3 ML SYRINGE SC SCH (08:19)
[2016-03-28] MEDS: Gabapentin 300 MG CAP PO SCH (08:20)
[2016-03-28] MEDS: Saccharomyces boulardii 250 MG CAP PO SCH (08:20)
[2016-03-28] MEDS: Potassium Chloride 20 MEQ TAB PO SCH (08:20)
[2016-03-28] MEDS: Furosemide 40 MG TAB PO SCH (08:20)
[2016-03-28] MEDS: tiZANidine HCl 4 MG TAB PO SCH (08:21)
--- NOTE | 2016-03-28 09:30 | PRG ---
DATE OF SERVICE: 03/28/2016 SUBJECTIVE: Ms. Cruz is doing well. Denies any complaints, resting comfortably. She is going t o see Dr. Baptiset today to evaluate the wound dehiscence. Wound culture grew few yeast species, no amaya teria, no fever or chills. No drainage. OBJECTIVE: VITAL SIGNS: She is afebrile, heart rate is 56, respirations 18, blood pressure 139/63. CARDIOVASCULAR: S1, S2 plus. RESPIRATORY: Normal vesicular breath sounds. ABDOMEN: Soft, nontender, bowel sounds heard in all quadrants. EXTREMITIES: Right leg in an immobilizer. IMPRESSION: 1. Right knee septic arthritis status post removal of hardware and placement of antibiotic spacers. 2. Incision dehiscence without any obvious signs of infection. 3. Gastroesophageal reflux disease. 4. Dyslipidemia. 5. Irritable bowel syndrome. 6. Anxiety and depression. PLAN: 1. Continue IV antibiotics. 2. Await Dr. Baptiste's opinion. 3. Wound care. 4. Nutritional support. 5. DVT and stress ulcer prophylaxis. 6. Decubitus precautions6.
== END 2016-03-28 10:46 | disposition short-term general hospital (02) | DRG 949 ==
LOC: NAV ACUTE 15:28
PROVIDERS: ADMIT Internal Medicine; ATTEND Internal Medicine
DX: T84.53XD Infection and inflammatory reaction due to internal right knee prosthesis, subsequent encounter (principal); T81.31XA Disruption of external operation (surgical) wound, not elsewhere classified, initial encounter; G62.9 Polyneuropathy, unspecified; M17.11 Unilateral primary osteoarthritis, right knee; E78.5 Hyperlipidemia, unspecified; F32.9 Major depressive disorder, single episode, unspecified; F41.9 Anxiety disorder, unspecified; K21.9 Gastro-esophageal reflux disease without esophagitis; K58.9 Irritable bowel syndrome, unspecified; F17.210 Nicotine dependence, cigarettes, uncomplicated; S76.111D Strain of right quadriceps muscle, fascia and tendon, subsequent encounter; Z98.890 Other specified postprocedural states; R21 Rash and other nonspecific skin eruption; W19.XXXD Unspecified fall, subsequent encounter
CPT/HCPCS: 36415; 80048; 80053; 80202; 85025; 85652; 86140; 87070; 87205; 97602; A4216; C1751; G8978-GP-CK; G8979-GP-CI; J0692; J1642; J1650; J3370; J7050

== ENCOUNTER 2016-04-01 11:25 | Inpatient (IN) | payer MEDICARE, OTHER ==
[2016-04-01] MEDS ORDERED: OXYCODONE IR PO PRN (13:49)
[2016-04-01] MEDS ORDERED: MAGNESIUM HYDROXIDE PO PRN (13:49)
[2016-04-01] MEDS ORDERED: Ondansetron HCl/PF 4 MG/2 ML Vial IVP PRN (13:49)
[2016-04-01] MEDS ORDERED: Bisacodyl 10 MG SUPP PR PRN (13:49)
[2016-04-01] MEDS ORDERED: Non-Formulary Item 1 EACH (Docusate Sodium [Docusate Sodium] 100 MG) PO PRN (13:49)
[2016-04-01] MEDS ORDERED: [UNRECOGNIZED DRUG - OTHER] IV SCH (14:00)
[2016-04-01] MEDS ORDERED: SOD CHLORIDE IV SCH (14:00)
[2016-04-01] MEDS ORDERED: VANCOMYCIN IV SCH (14:00)
[2016-04-01] MEDS ORDERED: Docusate 100 MG CAP PO PRN (14:06)
[2016-04-01] MEDS ORDERED: Milk Of Magnesia 30 ML UDCUP PO PRN (14:07)
[2016-04-01] MEDS ORDERED: Loperamide HCl 2 MG CAP PO PRN (14:08)
[2016-04-01] MEDS ORDERED: DICYCLOMINE HCL 10 MG PO SCH ×2 (15:00)
[2016-04-01] MEDS ORDERED: Non-Formulary Item 1 EACH (Gabapentin [Gabapentin] 600 MG) PO SCH (15:00)
[2016-04-01] MEDS: Nicotine 21 MG PATCH TD SCH (15:05)
[2016-04-01] MEDS: Cefepime 1 GM in Sodium Chloride 0.9% 100 ML IVPB SCH (15:22)
[2016-04-01] MEDS: Vancomycin HCl 750 MG in Sodium Chloride 0.9% 250 ML 250 ML IVPB SCH (15:23)
[2016-04-01] MEDS: Vancomycin HCl 500 MG in Sodium Chloride 0.9% 100 ML IVPB SCH (15:23)
[2016-04-01] MEDS: Gabapentin 300 MG CAP PO SCH ×2 (15:23→21:30)
[2016-04-01] MEDS: oxyCODONE 5 MG TAB PO PRN (15:24)
--- NOTE | 2016-04-01 20:12 | HP ---
DATE OF ADMISSION: 04/01/2016 HISTORY OF PRESENT ILLNESS: Ms. Cruz is a 75-year-old white female that had a right knee replace ment several months ago. It loosened up in October and then she fell and ruptures her quadriceps tendon which was repaired. She was home and presented back to Dr. Baptiste and had an infection. Her i mplants had to be removed, beads and spacers were placed and she was placed on 6 weeks of IV antibio tics with vancomycin, Maxipime and sent here for physical therapy and occupational therapy. The patient was doing well, but started having some pain in her knee and felt to be infected. She w as sent back to [facility] saw Dr. Baptiste who went ahead and opened her incision, ir rigated, closed it back and sent her back for continued antibiotics, physical therapy and occupation al therapy. She returns today without any complaints today. PAST MEDICAL HISTORY: 1. Positive for infected right knee. 2. Degenerative joint disease. 3. Gastroesophageal reflux disease. 4. Peripheral neuropathy. 5. Irritable bowel syndrome. 6. Hyperlipidemia. 7. Depression. PAST SURGICAL HISTORY: 1. Multiple joint replacements. 2. Cardiac catheterization which was read as normal. 3. Cholecystectomy. 4. Kidney stone. 5. Recent washing out of the right knee space this past week. ALLERGIES: Reveals the patient is allergic to PHENOBARBITAL and AUGMENTIN. FAMILY HISTORY: Positive for coronary artery disease. PRESENT MEDICATIONS: 1. Tylenol 650 every 4 hours p.r.n. 2. Dulcolax p.r.n. 3. Wellbutrin 300 mg daily. 4. Cefepime 1 gram IV b.i.d. at 0300 and 1500 hours. 5. Celebrex 200 mg daily. 6. Cyclopentolate eye drops 1-2 drops in each eye daily. 7. Bentyl 10 mg t.i.d. scheduled. 8. Colace p.r.n. 9. Lovenox 30 mg scheduled daily. 10. Lasix 40 mg daily. 11. Gabapentin 600 mg 3 times daily. 12. Imodium p.r.n. 13. Milk of Magnesia p.r.n. 14. Nicotine patch 21 mg daily. 15. Zofran 4 mg IV every 6 hours p.r.n. nausea and vomiting. 16. Oxycodone IR 5 mg every 6 hours p.r.n. 17. Protonix 40 mg daily. 18. Potassium 20 mEq daily. 19. Zoloft 50 mg b.i.d. 20. Simvastatin 10 mg at bedtime. 21. Zanaflex 4 mg scheduled daily. 22. Tramadol 100 mg q.i.d. p.r.n. 23. Trazodone 50 mg at bedtime. 24. Vancomycin 500 mg IV every 24 hours. 25. Vancomycin 750 mg IV every 24 hours scheduled, so I believe she is on total of 1250 mg daily. REVIEW OF SYSTEMS: Reveals the patient has no complaints of vision. Has no hearing complaints. Rizzo s no complaints of cough, cold, congestion or respiratory problems. Has no complaints of chest pain , racing or skipping heart beats, shortness of breath with exertion or claudication. Denies any trent sea, vomiting, diarrhea, constipation issues. Denies any issues. Denies any skin issues. Does complain of musculoskeletal pain in the right knee, but states she fee ls much better. PHYSICAL EXAMINATION: GENERAL: This is a well-developed, well-nourished, very pleasant 75-year-old white female in no roland arent distress at this time. She is awake, alert and oriented x3. HEENT: Reveals normocephalic, nontraumatic cranium. Pupils are equally round and reactive to light and accommodation. Extraocular movements intact. Nose and throat are slightly dry. NECK: Supple, without masses, nodes or bruits. No jugular venous distention is noted. LUNGS: Chest is clear to auscultation. No rales, rhonchi, wheezes or cough is heard. HEART: Reveals a regular rate and rhythm without murmurs, gallops or rubs. ABDOMEN: Soft, nontender, without organomegaly, normal bowel sounds are noted. No rebound or guard ing is noted. : Deferred. EXTREMITIES: Reveals right knee in a knee immobilizer, undressed, looks nice, not red, not draining , without any signs or symptoms of infection. CENTRAL NERVOUS SYSTEM: Nonfocal. IMPRESSION: 1. Total right knee infection, status post removal of the prosthesis and the patella, presently con tinues on IV antibiotics with vancomycin and Maxipime. 2. Right quadriceps rupture, status post repair. 3. Irritable bowel syndrome. 4. Degenerative joint disease. 5. Hyperlipidemia. 6. Tobacco abuse. 7. Depression. PLAN: 1. Continue vancomycin with vancomycin level to be adjusted by pharmacy. 2. Continue present medications. 3. Deep venous thrombosis and stress ulcer prophylaxis. 4. Decubitus precautions. 5. Bowel regimen. 6. Probiotics. 7. Weekly CBC, C-reactive protein, CMP and sed rate. 8. Follow up with Dr. Baptiste for his recommendations. 9. Still nonweightbearing.
[2016-04-01] MEDS ORDERED: DEXTROSE ISO OSM IVPB SCH (21:00)
[2016-04-01] MEDS ORDERED: PRAVASTATIN SODIUM 40 MG PO SCH (21:00)
[2016-04-01] MEDS ORDERED: [UNRECOGNIZED DRUG - OTHER] IVPB SCH (21:00)
[2016-04-01] MEDS ORDERED: CEFEPIME HCL IVPB SCH (21:00)
[2016-04-01] MEDS: Simvastatin 10 MG TAB PO SCH (21:29)
[2016-04-01] MEDS: traZODone HCl 50 MG TAB PO SCH (21:31)
[2016-04-02] MEDS: Cefepime 1 GM in Sodium Chloride 0.9% 100 ML IVPB SCH ×2 (03:15→14:37)
[2016-04-02] MEDS: oxyCODONE 5 MG TAB PO PRN ×3 (03:57→17:20)
[2016-04-02 05:24] LABS: #Basophils 0.1 thou/uL (0.0-0.2); #Eosinphils 0.3 thou/uL (0.0-0.7); #Lymphocytes 0.5 thou/uL (1.20-3.40); #Monocytes 0.3 thou/uL (0.11-0.59); %Basophils 1.6 % (0.0-1.0); %Eosinophils 7.3 % (0.0-10.0); %Lymphocytes 12.4 % (21.0-51.0); %Monocytes 7.6 % (0.0-10.0); Hematocrit 36.4 % (36.0-47.0); Mean Platelet Volume 8.3 fL (7.4-10.4); Red Blood Cell (RBC) Count 4.01 mill/uL (4.20-5.40); White Blood Cell (WBC) Count 4.2 thou/uL (4.8-10.8)
[2016-04-02 05:40] LABS: ALT (SGPT) 46 U/L (0-55); AST (SGOT) 14 U/L (5-34); Alkaline Phosphatase 114 U/L (40-150); Anion Gap 16 mmol/L (10-20); BUN (Urea Nitrogen) 24 mg/dL (9.8-20.1); Bilirubin, Total 0.3 mg/dL (0.2-1.2); Calc. Creatinine Clearance 51 mL/min (70-130); Calcium 9.2 mg/dL (7.8-10.44); Carbon Dioxide 23 mmol/L (23-31); Chloride 105 mmol/L (98-107); Estimated GFR-MDRD 61; Globulin 2.4 g/dL (2.4-3.5); Protein, Total 5.4 g/dL (5.8-8.1)
[2016-04-02] MEDS: CeleCOXIB 100 MG CAP PO SCH (08:58)
[2016-04-02] MEDS: Bupropion 150 MG XL TAB PO SCH (08:58)
[2016-04-02] MEDS: Cyclopentolate 0.5% Opth Drops 15 ML BOT EA EYE SCH (08:58)
[2016-04-02] MEDS: Enoxaparin Sodium 30 MG/0.3 ML SYRINGE SC SCH (09:00)
[2016-04-02] MEDS ORDERED: Non-Formulary Item 1 EACH (Celecoxib [Celebrex] 200 MG) PO SCH (09:00)
[2016-04-02] MEDS ORDERED: PANTOPRAZOLE SODIUM 40 MG PO SCH (09:00)
[2016-04-02] MEDS ORDERED: Non-Formulary Item 1 EACH (Tizanidine Hcl [Tizanidine Hcl] 4 MG) PO SCH (09:00)
[2016-04-02] MEDS ORDERED: Bupropion 150 MG XL TAB PO SCH (09:00)
[2016-04-02] MEDS: Furosemide 40 MG TAB PO SCH (09:01)
[2016-04-02] MEDS: Gabapentin 300 MG CAP PO SCH ×3 (09:01→21:14)
[2016-04-02] MEDS: Potassium Chloride 20 MEQ TAB PO SCH (09:01)
[2016-04-02] MEDS: tiZANidine HCl 4 MG TAB PO SCH (09:02)
[2016-04-02] MEDS: Nicotine 21 MG PATCH TD SCH (14:37)
[2016-04-02] MEDS: Vancomycin HCl 750 MG in Sodium Chloride 0.9% 250 ML 250 ML IVPB SCH (14:38)
[2016-04-02] MEDS: Vancomycin HCl 500 MG in Sodium Chloride 0.9% 100 ML IVPB SCH (14:38)
[2016-04-02] MEDS ORDERED: Guaifenesin DM 100-10/5 ML UDCUP PO PRN ×2 (19:41→20:35)
[2016-04-02] MEDS ORDERED: guaiFENesin ER 600 MG TAB PO SCH ×2 (21:00)
[2016-04-02] MEDS: Simvastatin 10 MG TAB PO SCH (21:14)
[2016-04-02] MEDS: traZODone HCl 50 MG TAB PO SCH (21:15)
--- NOTE | 2016-04-02 23:43 | PRG ---
DATE OF SERVICE: 04/02/2016 HISTORY OF PRESENT ILLNESS: The patient is a very pleasant 75-year-old white female that had knee r eplacement that got infected. She had the hardware removed and had beads and spacers placed. She h as been placed on IV antibiotics, sent to physical therapy, but her patellae got infected. She was sent to [facility] where they went ahead and opened incision and irrigated and c losed it the back. She was transferred back here for continued antibiotics, physical therapy and oc cupational therapy. The patient states she is doing well. She has no complaints today. VITAL SIGNS: Revealed blood pressure this morning 133/65, pulse 53-65, respirations 18-20, O2 sat 9 3%-96%, T-max 97.6. LABORATORY DATA: This morning revealed white count of 4200 with hemoglobin of 11.8, hematocrit 36.4 and platelet count of 160,000. Sodium was 140, potassium 4.1, chloride 105, carbon dioxide 23 with BUN 24, creatinine 0.9. Last va ncomycin was 03/26/2016 it was 15.6. The patient is going to have vancomycin level tomorrow before her 3 o'clock dose. PHYSICAL EXAMINATION: GENERAL: This is a well-developed, well-nourished, very pleasant white female in no apparent distre ss at this time. HEENT: Reveals normocephalic, nontraumatic cranium. Pupils are equally round and reactive. Extrao cular movements intact. Nose and throat are slightly dry. NECK: Supple, without masses, nodes or bruits. CHEST: Clear to auscultation. No rales, rhonchi or wheezes are heard. CARDIOVASCULAR: Reveals a regular rate and rhythm without murmurs, gallops or rubs. ABDOMEN: Soft, nontender, without organomegaly, normal bowel sounds were noted. No rebound or guar ding is noted. : Deferred. EXTREMITIES: Reveals right knee in a knee immobilizer, still no significant swelling, no significan t signs of infection, has no significant pain. IMPRESSION: 1. Total right knee, status post removal of prosthesis of the patella. presently continues on IV an tibiotics with a recent watching out by Dr. Baptiste over the 3-4 days, presently on vancomycin and Maxi pime. 2. Quadriceps rupture, status post repair. 3. Irritable bowel syndrome. 4. Degenerative joint disease. 5. Hyperlipidemia. 6. Tobacco abuse. 7. Depression. PLAN: 1. Continue vancomycin and the vancomycin level will be done at 1300 hours tomorrow. Vancomycin wi ll be adjusted by pharmacy. 2. Continue present medications. 3. Continue deep venous thrombosis and stress ulcer prophylaxis. 4. Continue decubitus precautions. 5. Bowel regimen. 6. Probiotics. 7. Weekly CBC, C-reactive protein, CMP and sed rate. 8. Follow up with Dr. Baptiste for his recommendations. 9. Still nonweightbearing.
[2016-04-03] MEDS: Cefepime 1 GM in Sodium Chloride 0.9% 100 ML IVPB SCH ×2 (03:08→14:24)
[2016-04-03] MEDS: oxyCODONE 5 MG TAB PO PRN ×3 (06:22→19:46)
--- NOTE | 2016-04-03 07:54 | PRG ---
DATE OF SERVICE: 04/02/2016. HISTORY OF PRESENT ILLNESS: Ms. Cruz is a very pleasant 75-year-old white female that had total knee replacement that got infected. The hardware was removed, and beads and spacer placed. She was placed on IV antibiotics and physical therapy, but really got infectious, sent back to [facility], did an I\T\D, irrigated and closed back up. She was transferred back to [facility] for continued IV antibiotics, physical therapy and occupational therapy. The patient states she is doing well. She has no complaints. She states the swelling in her legs g one down from yesterday to today. OBJECTIVE: VITAL SIGNS: Revealed blood pressure this morning is pending. The one from last night was 122/62, pulse 53-65, respirations 18-20, O2 saturations 93-94%. T-max is 97.9. PHYSICAL EXAMINATION: GENERAL: This is a well-developed, well-nourished, very pleasant white female, in no apparent distr ess at this time. HEENT: Reveals normocephalic, nontraumatic cranium. Pupils are equally round and reactive. Nose a nd throat slightly dry. NECK: Supple, without masses, nodes or bruits. LUNGS: Chest is clear to auscultation. No rales, no rhonchi, no wheezes. No cough is heard. CARDIOVASCULAR: Reveals a regular rate and rhythm without murmurs, gallops or rubs. ABDOMEN: Soft, nontender, without organomegaly, normal bowel sounds are noted. No rebound or guard ing is noted. GENITOURINARY: Deferred. EXTREMITIES: Reveal right knee still in a knee immobilizer, is somewhat loose, less swelling. No s ignificant drainage, is minimal drainage. IMPRESSION: 1. Total right knee, status post removal of prosthesis of the patella, presently continues on intra venous antibiotic. 2. Recent washing out by Dr. Baptiste. 3. Continue vancomycin and Maxipime. 4. Quadriceps rupture, status post repair. 5. Irritable bowel syndrome. 6. Degenerative joint disease. 7. Hyperlipidemia. 8. Tobacco abuse. 9. Depression. PLAN: 1. Continue vancomycin and the vancomycin level will be done today at 1300 hours. 2. Vancomycin dosing will be adjusted by pharmacy. 3. Continue other present medications. 4. Continue deep venous thrombosis and stress prophylaxes. 5. Continue physical therapy and occupational therapy. 6. Continue decubitus precautions. 7. Bowel regimen. 8. Probiotics and weekly CBC, C-reactive protein, CMP and sed rate. 9. Follow up with Dr. Baptiste's recommendations. 10. Still nonweightbearing.
[2016-04-03] MEDS: CeleCOXIB 100 MG CAP PO SCH (08:44)
[2016-04-03] MEDS: Cyclopentolate 0.5% Opth Drops 15 ML BOT EA EYE SCH (08:44)
[2016-04-03] MEDS: Bupropion 150 MG XL TAB PO SCH (08:44)
[2016-04-03] MEDS: Gabapentin 300 MG CAP PO SCH ×3 (08:46→19:47)
[2016-04-03] MEDS: Enoxaparin Sodium 30 MG/0.3 ML SYRINGE SC SCH (08:46)
[2016-04-03] MEDS: Furosemide 40 MG TAB PO SCH (08:46)
[2016-04-03] MEDS: Potassium Chloride 20 MEQ TAB PO SCH (08:47)
[2016-04-03] MEDS: tiZANidine HCl 4 MG TAB PO SCH (08:47)
[2016-04-03] MEDS: Nicotine 21 MG PATCH TD SCH (14:23)
[2016-04-03 14:47] LABS: Vancomycin, Trough 25.3 ug/mL
[2016-04-03] MEDS: Vancomycin HCl 750 MG in Sodium Chloride 0.9% 250 ML 250 ML IVPB SCH (14:59)
[2016-04-03] MEDS: traZODone HCl 50 MG TAB PO SCH ×2 (20:57→21:59)
[2016-04-03] MEDS: Simvastatin 10 MG TAB PO SCH (20:58)
[2016-04-03 22:03] VITALS: BMI 21.7
[2016-04-04] MEDS: Cefepime 1 GM in Sodium Chloride 0.9% 100 ML IVPB SCH ×3 (03:03→18:00)
[2016-04-04] MEDS: Vancomycin HCl 750 MG in Sodium Chloride 0.9% 250 ML 250 ML IVPB SCH (03:45)
[2016-04-04] MEDS: oxyCODONE 5 MG TAB PO PRN (07:57)
[2016-04-04] MEDS: CeleCOXIB 100 MG CAP PO SCH (07:59)
[2016-04-04] MEDS: Potassium Chloride 20 MEQ TAB PO SCH (07:59)
[2016-04-04] MEDS: Gabapentin 300 MG CAP PO SCH ×3 (07:59→21:05)
[2016-04-04] MEDS: Cyclopentolate 0.5% Opth Drops 15 ML BOT EA EYE SCH (08:00)
[2016-04-04] MEDS: Bupropion 150 MG XL TAB PO SCH (08:00)
[2016-04-04] MEDS: Furosemide 40 MG TAB PO SCH (08:00)
[2016-04-04] MEDS: tiZANidine HCl 4 MG TAB PO SCH (08:00)
[2016-04-04] MEDS: Enoxaparin Sodium 30 MG/0.3 ML SYRINGE SC SCH (08:01)
[2016-04-04] MEDS ORDERED: Dextromethorphan Polistirex 30 MG/5 ML UDCUP PO PRN ×2 (09:00)
--- NOTE | 2016-04-04 14:08 | PRG ---
DATE OF SERVICE: 04/04/2016 SUBJECTIVE: Ms. Cruz is doing well. Denies any complaints, resting comfortably. Discussed with Dr. Baptiste prior to admission and he said that he had just gone in and just washed out her joint and replaced the antibiotic beads and he wanted her to continue the antibiotic till the 04/15/2016 and h e is probably going to go and do the redo knee on the . She is doing well otherwise. Denies an y complaints. OBJECTIVE: VITAL SIGNS: She is afebrile, heart rate is 75, respirations are 18, oxygen saturation is 96%, bloo d pressure 140/65. CARDIOVASCULAR: S1, S2 plus. RESPIRATORY: Normal vesicular breath sounds. ABDOMEN: Soft, nontender, bowel sounds heard in all quadrants. EXTREMITIES: Without cyanosis or clubbing. Knee immobilizer over the right leg, trace edema. IMPRESSION: 1. Right knee septic arthritis, status post removal of hardware and placement of spacers and antibi otic beads. 2. Gastroesophageal reflux disease. 3. Irritable bowel syndrome. 4. Dyslipidemia. 5. Depression. PLAN: 1. Continue current medications. 2. IV antibiotics pharmacy to adjust dosing. 3. Weekly CBC, CRP, sed rate. 4. Last day for antibiotics is 04/15/2016. 5. Nutritional support. 6. DVT and stress ulcer prophylaxis. 7. Routine laboratory values.
[2016-04-04] MEDS: Nicotine 21 MG PATCH TD SCH (14:45)
[2016-04-04] MEDS: Acetaminophen 325 MG TAB PO PRN (15:27)
[2016-04-04] MEDS: traMADol HCl 50 MG TAB PO PRN (15:28)
[2016-04-04] MEDS: traZODone HCl 50 MG TAB PO SCH (21:04)
[2016-04-04] MEDS: Simvastatin 10 MG TAB PO SCH (21:05)
[2016-04-05] MEDS: Vancomycin HCl 750 MG in Sodium Chloride 0.9% 250 ML 250 ML IVPB SCH (04:05)
[2016-04-05] MEDS: oxyCODONE 5 MG TAB PO PRN ×2 (04:06→20:19)
[2016-04-05] MEDS: Cefepime 1 GM in Sodium Chloride 0.9% 100 ML IVPB SCH ×2 (05:56→17:11)
[2016-04-05] MEDS: Gabapentin 300 MG CAP PO SCH ×3 (09:06→20:18)
[2016-04-05] MEDS: Enoxaparin Sodium 30 MG/0.3 ML SYRINGE SC SCH (09:06)
[2016-04-05] MEDS: CeleCOXIB 100 MG CAP PO SCH (09:06)
[2016-04-05] MEDS: Furosemide 40 MG TAB PO SCH (09:07)
[2016-04-05] MEDS: Potassium Chloride 20 MEQ TAB PO SCH (09:07)
[2016-04-05] MEDS: Bupropion 150 MG XL TAB PO SCH (09:07)
[2016-04-05] MEDS: Cyclopentolate 0.5% Opth Drops 15 ML BOT EA EYE SCH (09:09)
[2016-04-05] MEDS: tiZANidine HCl 4 MG TAB PO SCH (09:30)
--- NOTE | 2016-04-05 13:29 | PRG ---
DATE OF SERVICE: 04/05/2016 SUBJECTIVE: Ms. Cruz is doing well. Denies any complaints. She has noticed a rash in her diape r area. No other concerns. OBJECTIVE: VITAL SIGNS: She is afebrile, heart rate is 80, respiration is 18, blood pressure is 128/65. CARDIOVASCULAR: S1, S2 plus. RESPIRATORY: Normal vesicular breath sounds. ABDOMEN: Soft, nontender, bowel sounds heard in all quadrants. EXTREMITIES: Without cyanosis or clubbing. Right knee in an immobilizer. IMPRESSION: 1. Possible tenia cruris. 2. Right knee septic arthritis. 3. Gastroesophageal reflux disease. 4. Irritable bowel syndrome. 5. Dyslipidemia. 6. Depression. PLAN: 1. Nystatin cream to rash b.i.d. x10 days. 2. Continue IV antibiotics. 3. Recheck CBC, CRP, sed rate. 4. Nutritional support. 5. Orthopedic precautions. 6. Routine laboratory values.
[2016-04-05] MEDS: Nicotine 21 MG PATCH TD SCH (14:00)
[2016-04-05] MEDS: traMADol HCl 50 MG TAB PO PRN (15:06)
[2016-04-05] MEDS: Acetaminophen 325 MG TAB PO PRN (15:06)
[2016-04-05] MEDS: traZODone HCl 50 MG TAB PO SCH (20:19)
[2016-04-05] MEDS: Simvastatin 10 MG TAB PO SCH (20:19)
[2016-04-05] MEDS: Nystatin Cream 30 GM TUBE TOP SCH (20:19)
[2016-04-06 03:23] LABS: Vancomycin, Trough 18.7 ug/mL
[2016-04-06] MEDS: Vancomycin HCl 750 MG in Sodium Chloride 0.9% 250 ML 250 ML IVPB SCH (03:51)
[2016-04-06] MEDS: Cefepime 1 GM in Sodium Chloride 0.9% 100 ML IVPB SCH ×2 (06:24→17:34)
[2016-04-06] MEDS: oxyCODONE 5 MG TAB PO PRN ×3 (09:06→21:44)
[2016-04-06] MEDS: Enoxaparin Sodium 30 MG/0.3 ML SYRINGE SC SCH (09:08)
[2016-04-06] MEDS: Bupropion 150 MG XL TAB PO SCH (09:09)
[2016-04-06] MEDS: CeleCOXIB 100 MG CAP PO SCH (09:09)
[2016-04-06] MEDS: Gabapentin 300 MG CAP PO SCH ×3 (09:09→20:29)
[2016-04-06] MEDS: Furosemide 40 MG TAB PO SCH (09:09)
[2016-04-06] MEDS: tiZANidine HCl 4 MG TAB PO SCH (09:10)
[2016-04-06] MEDS: Potassium Chloride 20 MEQ TAB PO SCH (09:10)
[2016-04-06] MEDS: Cyclopentolate 0.5% Opth Drops 15 ML BOT EA EYE SCH (09:10)
[2016-04-06] MEDS: Nystatin Cream 30 GM TUBE TOP SCH (09:12)
--- NOTE | 2016-04-06 13:03 | PRG ---
DATE OF SERVICE: 04/06/2016 SUBJECTIVE: Ms. Cruz is doing well. Denies any complaints, resting comfortably, tolerating her therapy, nystatin seems to be helping. OBJECTIVE: VITAL SIGNS: She is afebrile, heart rate is 64, respirations are 18, oxygen saturation 97%, and blo od pressure 135/61. CARDIOVASCULAR: S1, S2 plus. RESPIRATORY: Normal vesicular breath sounds. ABDOMEN: Soft, nontender, bowel sounds heard in all quadrants. EXTREMITIES: Without cyanosis or clubbing. Right knee in an immobilizer. IMPRESSION: 1. Right knee septic arthritis. 2. Tinea cruris. 3. Dyslipidemia. 4. Gastroesophageal reflux disease. 5. Irritable bowel syndrome. 6. Depression. PLAN: 1. Continue current medications. 2. Recheck weekly CBC, CRP, sed rate tomorrow. 3. Continue antibiotics. Pharmacy to adjust dosing. 4. DVT and stress ulcer prophylaxis.
[2016-04-06] MEDS: Nystatin Cream 15 GM TUBE TOP SCH ×2 (14:32→20:30)
[2016-04-06] MEDS: Nicotine 21 MG PATCH TD SCH (14:34)
[2016-04-06] MEDS ORDERED: ALPRAZolam 0.25 MG TAB PO SCH (18:30)
[2016-04-06] MEDS: Simvastatin 10 MG TAB PO SCH (20:29)
[2016-04-06] MEDS: traZODone HCl 50 MG TAB PO SCH (20:29)
--- NOTE | 2016-04-06 21:34 | RAD ---
RIGHT KNEE FOUR VIEWS 04/06/16 HISTORY: Right knee injury. Recent surgery. FINDINGS: There is one shaft width lateral displacement of the femoral component of the right knee prosthesis in relation to the osseous portion of the distal right femur. Extensive radiopaque cement is present throughout the distal femur. There is 0.4 cm lucency at the base of the tibial prosthetic component . Numerous small lobular radiopaque densities are present throughout the anterior soft tissues with gas in the superficial soft tissues anteriorly. IMPRESSION: Malalignment of the distal femur with the femoral prosthetic component. Evidence of loosening of the tibial component. Please consider orthopedic evaluation. POS: JOSE
[2016-04-07] MEDS: Vancomycin HCl 750 MG in Sodium Chloride 0.9% 250 ML 250 ML IVPB SCH (04:50)
[2016-04-07] MEDS: Cefepime 1 GM in Sodium Chloride 0.9% 100 ML IVPB SCH ×2 (05:50→17:26)
[2016-04-07 06:02] LABS: #Basophils 0.1 thou/uL (0.0-0.2); #Eosinphils 0.2 thou/uL (0.0-0.7); #Lymphocytes 0.5 thou/uL (1.20-3.40); #Monocytes 0.3 thou/uL (0.11-0.59); #Neutrophils 2.4 thou/uL (1.40-6.50); %Basophils 1.5 % (0.0-1.0); %Eosinophils 6.4 % (0.0-10.0); %Lymphocytes 14.3 % (21.0-51.0); %Monocytes 9.8 % (0.0-10.0); Hematocrit 34.9 % (36.0-47.0); Mean Platelet Volume 7.5 fL (7.4-10.4); Red Blood Cell (RBC) Count 3.86 mill/uL (4.20-5.40); White Blood Cell (WBC) Count 3.5 thou/uL (4.8-10.8)
[2016-04-07 06:13] LABS: ALT (SGPT) 29 U/L (0-55); AST (SGOT) 22 U/L (5-34); Alkaline Phosphatase 83 U/L (40-150); Anion Gap 13 mmol/L (10-20); BUN (Urea Nitrogen) 22 mg/dL (9.8-20.1); Bilirubin, Total 0.2 mg/dL (0.2-1.2); Calc. Creatinine Clearance 48 mL/min (70-130); Carbon Dioxide 28 mmol/L (23-31); Chloride 106 mmol/L (98-107); Estimated GFR-MDRD 55; Globulin 2.6 g/dL (2.4-3.5); Protein, Total 5.6 g/dL (5.8-8.1)
[2016-04-07] MEDS: Cyclopentolate 0.5% Opth Drops 15 ML BOT EA EYE SCH (09:51)
[2016-04-07] MEDS: Nystatin Cream 15 GM TUBE TOP SCH ×2 (09:52→20:30)
[2016-04-07] MEDS: Bupropion 150 MG XL TAB PO SCH (10:09)
[2016-04-07] MEDS: Enoxaparin Sodium 30 MG/0.3 ML SYRINGE SC SCH (10:09)
[2016-04-07] MEDS: CeleCOXIB 100 MG CAP PO SCH (10:10)
[2016-04-07] MEDS: Furosemide 40 MG TAB PO SCH (10:10)
[2016-04-07] MEDS: Potassium Chloride 20 MEQ TAB PO SCH (10:10)
[2016-04-07] MEDS: Gabapentin 300 MG CAP PO SCH ×3 (10:11→20:30)
[2016-04-07] MEDS: tiZANidine HCl 4 MG TAB PO SCH (10:11)
[2016-04-07] MEDS: Nicotine 21 MG PATCH TD SCH (10:12)
[2016-04-07] MEDS: oxyCODONE 5 MG TAB PO PRN ×2 (10:21→20:29)
--- NOTE | 2016-04-07 14:04 | PRG ---
DATE OF SERVICE: 04/07/2016 SUBJECTIVE: Ms. Cruz is doing okay. She is anxious. She apparently was hopping on her left rome t when she felt a pop in her right leg. An x-ray was done, the x-ray shows small alignment of the d istal femur with femoral prosthetic component and there is some evidence of loosening of the tibial component, but this is a lady who had her hardware removed and has antibiotic spacers placed and ant ibiotic beads, so I am not sure how it looked. I had asked them to fax a copy of the report to Dr. Baptiste, for him to check it and let us know if anything else needs to be done. She has always had the immobilizer. I am not sure if the immobilizer was off when she was trying to exercise. She was an xious and crying yesterday and needed a dose of Xanax. She denies any chest pain or shortness of br eath. OBJECTIVE: VITAL SIGNS: She is afebrile. Heart rate is 54, respirations are 20 and blood pressure is 133/63. CARDIOVASCULAR SYSTEM: S1 and S2 plus. RESPIRATORY SYSTEM: Normal vesicular breath sounds. ABDOMEN: Soft and nontender. Bowel sounds are heard in all quadrants. EXTREMITIES: No neurovascular compromise, the right leg (knee) with immobilizer. LABORATORY VALUES: Vancomycin trough is 18.7, sodium 143, potassium 4.3, BUN and creatinine are 22 and 1.99. CRP is 0.54. White count is 3.5. H\T\H is 11.3 and 34.9 with a sed rate of 54. IMPRESSION: 1. Right knee septic arthritis, status post removal of hardware and placement of spacers and antibi otic beads. 2. Wound dehiscence, status post washout and closure. 3. Anxiety and depression. 4. Irritable bowel syndrome. 5. Gastroesophageal reflux disease. 6. Dyslipidemia. PLAN: 1. Await Dr. Baptiste's opinion after reviewing the x-ray. I will have the nurses call his office paulina lozano to make sure he got the report. 2. Continue IV antibiotics. 3. Nutritional support. 4. Deep venous thrombosis prophylaxis. 5. Xanax p.r.n. 6. Anticipate end date is 04/15.
[2016-04-07] MEDS: Simvastatin 10 MG TAB PO SCH (20:30)
[2016-04-07] MEDS: traZODone HCl 50 MG TAB PO SCH (20:30)
[2016-04-08 03:19] LABS: Vancomycin, Trough 16.9 ug/mL
[2016-04-08] MEDS: Vancomycin HCl 750 MG in Sodium Chloride 0.9% 250 ML 250 ML IVPB SCH (04:20)
[2016-04-08] MEDS: Cefepime 1 GM in Sodium Chloride 0.9% 100 ML IVPB SCH ×2 (05:28→17:55)
[2016-04-08] MEDS: oxyCODONE 5 MG TAB PO PRN ×2 (06:47→20:26)
[2016-04-08] MEDS: Gabapentin 300 MG CAP PO SCH ×3 (08:46→20:27)
[2016-04-08] MEDS: Cyclopentolate 0.5% Opth Drops 15 ML BOT EA EYE SCH (08:46)
[2016-04-08] MEDS: Bupropion 150 MG XL TAB PO SCH (08:47)
[2016-04-08] MEDS: CeleCOXIB 100 MG CAP PO SCH (08:47)
[2016-04-08] MEDS: Potassium Chloride 20 MEQ TAB PO SCH (08:47)
[2016-04-08] MEDS: Furosemide 40 MG TAB PO SCH (08:47)
[2016-04-08] MEDS: tiZANidine HCl 4 MG TAB PO SCH (08:47)
[2016-04-08] MEDS: Enoxaparin Sodium 30 MG/0.3 ML SYRINGE SC SCH (08:53)
[2016-04-08] MEDS: Nystatin Cream 15 GM TUBE TOP SCH ×2 (09:00→20:30)
[2016-04-08] MEDS: Nicotine 21 MG PATCH TD SCH (14:00)
[2016-04-08] MEDS: Acetaminophen 325 MG TAB PO PRN (15:17)
[2016-04-08] MEDS: traMADol HCl 50 MG TAB PO PRN (15:17)
[2016-04-08] MEDS: traZODone HCl 50 MG TAB PO SCH (20:27)
[2016-04-08] MEDS: Simvastatin 10 MG TAB PO SCH (20:28)
[2016-04-09] MEDS: Vancomycin HCl 750 MG in Sodium Chloride 0.9% 250 ML 250 ML IVPB SCH (03:54)
[2016-04-09] MEDS: oxyCODONE 5 MG TAB PO PRN ×2 (04:56→20:21)
[2016-04-09] MEDS: Cefepime 1 GM in Sodium Chloride 0.9% 100 ML IVPB SCH ×2 (05:05→17:48)
[2016-04-09] MEDS: Enoxaparin Sodium 30 MG/0.3 ML SYRINGE SC SCH (09:26)
[2016-04-09] MEDS: CeleCOXIB 100 MG CAP PO SCH (09:27)
[2016-04-09] MEDS: Gabapentin 300 MG CAP PO SCH ×3 (09:27→20:22)
[2016-04-09] MEDS: Potassium Chloride 20 MEQ TAB PO SCH (09:27)
[2016-04-09] MEDS: Bupropion 150 MG XL TAB PO SCH (09:27)
[2016-04-09] MEDS: tiZANidine HCl 4 MG TAB PO SCH (09:28)
[2016-04-09] MEDS: Furosemide 40 MG TAB PO SCH (09:28)
[2016-04-09] MEDS: Nystatin Cream 15 GM TUBE TOP SCH ×2 (09:31→20:23)
[2016-04-09] MEDS: Cyclopentolate 1% Opth Drop 2 ML BOT EA EYE SCH (09:53)
--- NOTE | 2016-04-09 13:01 | PRG ---
DATE OF SERVICE: 04/09/2016. SUBJECTIVE: Ms. Cruz is doing well. Denies any complaints, resting comfortably, check with nurs ing and they did inform Dr. Baptiste's office, faxed the results and have not heard thing back, so most likely the malalignment is more due to removal of hardware and placement of spacers and the radioluc ency spots are more the antibiotic beads. She is doing well. She denies any complaints. She does not notice any erythema, redness or any swelling in her knee. No fever or chills. Continuing to us e the immobilizer. OBJECTIVE: VITAL SIGNS: She is afebrile, heart rate is 64, respirations are 20, oxygen saturation is 96%, bloo d pressure 139/64. CARDIOVASCULAR: S1, S2 plus. RESPIRATORY: Normal vesicular breath sounds. ABDOMEN: Soft, nontender, bowel sounds heard in all quadrants. EXTREMITIES: Right knee immobilizer in place. Trace edema. IMPRESSION: 1. Right knee septic arthritis. 2. Anxiety and depression. 3. Dyslipidemia. 4. Gastroesophageal reflux disease. 5. Irritable bowel syndrome. PLAN: 1. Continue current medications. 2. Antibiotics. 3. Nutritional support. 4. Wound care for incision care. 5. Await bearing restrictions. 6. Routine laboratory values.
[2016-04-09] MEDS: Nicotine 21 MG PATCH TD SCH (14:25)
[2016-04-09] MEDS: Acetaminophen 325 MG TAB PO PRN (14:25)
[2016-04-09] MEDS: traMADol HCl 50 MG TAB PO PRN (14:26)
[2016-04-09] MEDS: Simvastatin 10 MG TAB PO SCH (20:22)
[2016-04-09] MEDS: traZODone HCl 50 MG TAB PO SCH (20:22)
[2016-04-10] MEDS: oxyCODONE 5 MG TAB PO PRN ×3 (04:15→20:08)
[2016-04-10] MEDS: Vancomycin HCl 750 MG in Sodium Chloride 0.9% 250 ML 250 ML IVPB SCH (04:16)
[2016-04-10] MEDS: Cefepime 1 GM in Sodium Chloride 0.9% 100 ML IVPB SCH ×2 (05:34→18:16)
[2016-04-10] MEDS: Enoxaparin Sodium 30 MG/0.3 ML SYRINGE SC SCH (08:23)
[2016-04-10] MEDS: CeleCOXIB 100 MG CAP PO SCH (08:24)
[2016-04-10] MEDS: Potassium Chloride 20 MEQ TAB PO SCH (08:24)
[2016-04-10] MEDS: Gabapentin 300 MG CAP PO SCH ×3 (08:25→20:08)
[2016-04-10] MEDS: tiZANidine HCl 4 MG TAB PO SCH (08:25)
[2016-04-10] MEDS: Bupropion 150 MG XL TAB PO SCH (08:25)
[2016-04-10] MEDS: Nystatin Cream 15 GM TUBE TOP SCH ×2 (08:26→20:10)
[2016-04-10] MEDS: Furosemide 40 MG TAB PO SCH (08:26)
[2016-04-10] MEDS: Cyclopentolate 1% Opth Drop 2 ML BOT EA EYE SCH (08:26)
[2016-04-10] MEDS: Nicotine 21 MG PATCH TD SCH (13:30)
--- NOTE | 2016-04-10 15:37 | PRG ---
DATE OF SERVICE: 04/10/2016 SUBJECTIVE: Ms. Cruz is doing well. Denies any complaints. She is noticing some pain in her kn ee. No drainage, no redness, no fever or chills. I advised her to make sure she not only keeps the immobilizer at all times, but make sure she wears tight enough that there is no movement, it limits the movement on the knee joint. OBJECTIVE: VITAL SIGNS: She is afebrile, heart rate is 68, respirations 18, oxygen saturation is 96%, blood pr essure 133/64. CARDIOVASCULAR: S1, S2 plus. RESPIRATORY: Normal vesicular breath sounds. ABDOMEN: Soft, nontender, bowel sounds heard in all quadrants. EXTREMITIES: Without cyanosis or clubbing. Right knee with an immobilizer, trace edema. No neurov ascular compromise. IMPRESSION: 1. Right knee septic arthritis, on IV antibiotics. 2. Wound dehiscence status post washout and closure. 3. Irritable bowel syndrome. 4. Gastroesophageal reflux disease. 5. Dyslipidemia. PLAN: One of the nurses share and talked with Dr. Baptiste's office and apparently he wants her to cont inue on antibiotics until the and be transferred there in morning for implantation of the hardware, we will get blood cultures tomorrow just to make sure that everything is doing well. No o ther concerns or questions. Continue antibiotics, continue knee immobilizer.
[2016-04-10] MEDS: traMADol HCl 50 MG TAB PO PRN (15:58)
[2016-04-10] MEDS: Acetaminophen 325 MG TAB PO PRN (15:58)
[2016-04-10] MEDS: traZODone HCl 50 MG TAB PO SCH (20:08)
[2016-04-10] MEDS: Simvastatin 10 MG TAB PO SCH (20:09)
[2016-04-11] MEDS: traMADol HCl 50 MG TAB PO PRN (02:42)
[2016-04-11] MEDS: Acetaminophen 325 MG TAB PO PRN (02:42)
[2016-04-11 04:10] LABS: Vancomycin, Trough 15.3 ug/mL
[2016-04-11] MEDS: Vancomycin HCl 750 MG in Sodium Chloride 0.9% 250 ML 250 ML IVPB SCH (04:30)
[2016-04-11] MEDS: oxyCODONE 5 MG TAB PO PRN ×3 (05:33→21:28)
[2016-04-11] MEDS: Cefepime 1 GM in Sodium Chloride 0.9% 100 ML IVPB SCH ×2 (05:51→17:36)
[2016-04-11] MEDS: Cyclopentolate 1% Opth Drop 2 ML BOT EA EYE SCH (08:40)
[2016-04-11] MEDS: CeleCOXIB 100 MG CAP PO SCH (08:40)
[2016-04-11] MEDS: Bupropion 150 MG XL TAB PO SCH (08:40)
[2016-04-11] MEDS: Enoxaparin Sodium 30 MG/0.3 ML SYRINGE SC SCH (08:42)
[2016-04-11] MEDS: Gabapentin 300 MG CAP PO SCH ×3 (08:42→21:29)
[2016-04-11] MEDS: Potassium Chloride 20 MEQ TAB PO SCH (08:43)
[2016-04-11] MEDS: Furosemide 40 MG TAB PO SCH (08:43)
[2016-04-11] MEDS: Nystatin Cream 15 GM TUBE TOP SCH ×2 (08:43→21:31)
[2016-04-11] MEDS: tiZANidine HCl 4 MG TAB PO SCH (08:44)
[2016-04-11] MEDS: Nicotine 21 MG PATCH TD SCH (14:14)
[2016-04-11] MEDS: Simvastatin 10 MG TAB PO SCH (21:29)
[2016-04-11] MEDS: traZODone HCl 50 MG TAB PO SCH (21:30)
[2016-04-12] MEDS: Vancomycin HCl 750 MG in Sodium Chloride 0.9% 250 ML 250 ML IVPB SCH (04:49)
[2016-04-12] MEDS: Cefepime 1 GM in Sodium Chloride 0.9% 100 ML IVPB SCH ×2 (05:47→17:39)
[2016-04-12] MEDS: oxyCODONE 5 MG TAB PO PRN ×3 (05:48→20:25)
[2016-04-12] MEDS: Bupropion 150 MG XL TAB PO SCH (08:33)
[2016-04-12] MEDS: CeleCOXIB 100 MG CAP PO SCH (08:34)
[2016-04-12] MEDS: Cyclopentolate 1% Opth Drop 2 ML BOT EA EYE SCH (08:34)
[2016-04-12] MEDS: Gabapentin 300 MG CAP PO SCH ×3 (08:35→20:25)
[2016-04-12] MEDS: Enoxaparin Sodium 30 MG/0.3 ML SYRINGE SC SCH (08:35)
[2016-04-12] MEDS: Furosemide 40 MG TAB PO SCH (08:35)
[2016-04-12] MEDS: Potassium Chloride 20 MEQ TAB PO SCH (08:35)
[2016-04-12] MEDS: Nystatin Cream 15 GM TUBE TOP SCH ×2 (08:36→20:27)
[2016-04-12] MEDS: tiZANidine HCl 4 MG TAB PO SCH (08:36)
--- NOTE | 2016-04-12 09:37 | PRG ---
DATE OF SERVICE: 04/12/2016 SUBJECTIVE: Ms. Cruz is doing well. Denies any complaints. She is sitting on the edge of her b ed. Unfortunately, she has her knee immobilizer loosened all the way down so that her knee is flexe d. I explained to her that the knee really should not be flexing, it should be kept straight and th at is the main reason why she has the immobilizer on. She apparently does this all the time where s he loosens the immobilizer and flexes the knee. She is aware of risks. OBJECTIVE: VITAL SIGNS: She is afebrile, heart rate is 57, respirations 18, oxygen saturation is 93%, blood pr essure 168/77. CARDIOVASCULAR: S1, S2 plus. RESPIRATORY: Normal vesicular breath sounds. ABDOMEN: Soft, nontender, bowel sounds heard in all quadrants. EXTREMITIES: Without cyanosis or clubbing. Peripheral pulses are palpable. Trace edema in the rig ht leg. IMPRESSION: 1. Right knee septic arthritis status post removal of hardware and placement of antibiotics beads a nd spacers. 2. Noncompliance with following instructions. 3. Dyslipidemia. 4. Irritable bowel syndrome. 5. Depression and anxiety. 6. Gastroesophageal reflux disease. PLAN: 1. Continue current medications. Reinforce the need to use the immobilizer properly and keep her l eg straight and not bend her right knee. 2. Continue IV antibiotics. 3. Nutritional support. 4. DVT and stress ulcer prophylaxis. 5. Weekly CBC, CRP, sed rate.
[2016-04-12] MEDS: Nicotine 21 MG PATCH TD SCH (14:13)
[2016-04-12] MEDS: Simvastatin 10 MG TAB PO SCH (20:26)
[2016-04-12] MEDS: traZODone HCl 50 MG TAB PO SCH (20:27)
[2016-04-13] MEDS: Vancomycin HCl 750 MG in Sodium Chloride 0.9% 250 ML 250 ML IVPB SCH (04:04)
[2016-04-13] MEDS: oxyCODONE 5 MG TAB PO PRN ×2 (04:53→20:23)
[2016-04-13] MEDS: Cefepime 1 GM in Sodium Chloride 0.9% 100 ML IVPB SCH ×2 (05:00→18:27)
[2016-04-13] MEDS: CeleCOXIB 100 MG CAP PO SCH (08:39)
[2016-04-13] MEDS: Cyclopentolate 1% Opth Drop 2 ML BOT EA EYE SCH (08:39)
[2016-04-13] MEDS: Bupropion 150 MG XL TAB PO SCH (08:39)
[2016-04-13] MEDS: Enoxaparin Sodium 30 MG/0.3 ML SYRINGE SC SCH (08:39)
[2016-04-13] MEDS: Potassium Chloride 20 MEQ TAB PO SCH (08:40)
[2016-04-13] MEDS: Furosemide 40 MG TAB PO SCH (08:40)
[2016-04-13] MEDS: Gabapentin 300 MG CAP PO SCH ×3 (08:40→20:22)
[2016-04-13] MEDS: tiZANidine HCl 4 MG TAB PO SCH (08:40)
[2016-04-13] MEDS: Nystatin Cream 15 GM TUBE TOP SCH ×2 (09:00→20:22)
[2016-04-13] MEDS: Nicotine 21 MG PATCH TD SCH (14:19)
[2016-04-13] MEDS: Acetaminophen 325 MG TAB PO PRN (14:19)
[2016-04-13] MEDS: traMADol HCl 50 MG TAB PO PRN (14:20)
[2016-04-13] MEDS: Simvastatin 10 MG TAB PO SCH (20:22)
[2016-04-13] MEDS: traZODone HCl 50 MG TAB PO SCH (20:23)
[2016-04-14 03:26] LABS: Vancomycin, Trough 13.6 ug/mL
[2016-04-14] MEDS: Vancomycin HCl 750 MG in Sodium Chloride 0.9% 250 ML 250 ML IVPB SCH (03:50)
[2016-04-14] MEDS: Cefepime 1 GM in Sodium Chloride 0.9% 100 ML IVPB SCH ×2 (05:03→17:51)
[2016-04-14] MEDS: Cyclopentolate 1% Opth Drop 2 ML BOT EA EYE SCH (08:27)
[2016-04-14] MEDS: Furosemide 40 MG TAB PO SCH (08:28)
[2016-04-14] MEDS: tiZANidine HCl 4 MG TAB PO SCH (08:28)
[2016-04-14] MEDS: Bupropion 150 MG XL TAB PO SCH (08:28)
[2016-04-14] MEDS: Potassium Chloride 20 MEQ TAB PO SCH (08:29)
[2016-04-14] MEDS: Gabapentin 300 MG CAP PO SCH ×3 (08:29→20:25)
[2016-04-14] MEDS: CeleCOXIB 100 MG CAP PO SCH (08:29)
[2016-04-14] MEDS: oxyCODONE 5 MG TAB PO PRN ×2 (08:30→20:26)
[2016-04-14] MEDS: Nystatin Cream 15 GM TUBE TOP SCH ×2 (09:06→20:24)
[2016-04-14] MEDS: Enoxaparin Sodium 30 MG/0.3 ML SYRINGE SC SCH (09:07)
--- NOTE | 2016-04-14 13:01 | PRG ---
DATE OF SERVICE: 04/14/2016 SUBJECTIVE: Ms. Cruz is doing well. Denies any complaints. Improving swelling in her right leg . Denies any fever or chills. She apparently sprained her left wrist. She has some swelling, but she has full range of motion, it is nontender to palpation. OBJECTIVE: VITAL SIGNS: She is afebrile, heart rate is 61, respiration is 16, oxygen saturation is 95%, blood pressure 120/81. CARDIOVASCULAR: S1, S2 plus. RESPIRATORY: Normal vesicular breath sounds. ABDOMEN: Soft, nontender, bowel sounds heard in all quadrants. EXTREMITIES: Right leg in an immobilizer. IMPRESSION: 1. Right knee septic arthritis status post removal of hardware and placement of spacers and antibio tic beads. 2. Anxiety and depression. 3. Dyslipidemia. 4. Irritable bowel syndrome. 5. Degenerative joint disease. PLAN: 1. Continue current medications. 2. Weekly CBC, CRP, sed rate. 3. Discharge her early in the morning on the to [facility] for knee replacement. 4. Continue IV antibiotics. 5. Dr. Clarice Donnelly production machine shop supervisor this week and I will let him know.
[2016-04-14] MEDS: Acetaminophen 325 MG TAB PO PRN (14:03)
[2016-04-14] MEDS: Nicotine 21 MG PATCH TD SCH (14:03)
[2016-04-14] MEDS: traMADol HCl 50 MG TAB PO PRN (14:04)
[2016-04-14] MEDS: Simvastatin 10 MG TAB PO SCH (20:25)
[2016-04-14] MEDS: traZODone HCl 50 MG TAB PO SCH (21:47)
[2016-04-15] MEDS: Vancomycin HCl 750 MG in Sodium Chloride 0.9% 250 ML 250 ML IVPB SCH (03:44)
[2016-04-15 05:06] LABS: #Eosinphils 0.3 thou/uL (0.0-0.7); #Lymphocytes 0.4 thou/uL (1.20-3.40); #Monocytes 0.3 thou/uL (0.11-0.59); %Basophils 1.2 % (0.0-1.0); %Eosinophils 8.5 % (0.0-10.0); %Lymphocytes 13.4 % (21.0-51.0); %Monocytes 10.8 % (0.0-10.0); Mean Platelet Volume 7.4 fL (7.4-10.4); Red Blood Cell (RBC) Count 3.68 mill/uL (4.20-5.40)
[2016-04-15 05:27] LABS: ALT (SGPT) 24 U/L (0-55); AST (SGOT) 18 U/L (5-34); Alkaline Phosphatase 61 U/L (40-150); Anion Gap 15 mmol/L (10-20); BUN (Urea Nitrogen) 25 mg/dL (9.8-20.1); Bilirubin, Total 0.2 mg/dL (0.2-1.2); Calc. Creatinine Clearance 46 mL/min (70-130); Calcium 8.5 mg/dL (7.8-10.44); Carbon Dioxide 24 mmol/L (23-31); Chloride 107 mmol/L (98-107); Estimated GFR-MDRD 53; Globulin 2.4 g/dL (2.4-3.5); Protein, Total 5.2 g/dL (5.8-8.1)
[2016-04-15] MEDS: Cefepime 1 GM in Sodium Chloride 0.9% 100 ML IVPB SCH ×2 (07:11→17:47)
[2016-04-15] MEDS: Bupropion 150 MG XL TAB PO SCH (08:04)
[2016-04-15] MEDS: Cyclopentolate 1% Opth Drop 2 ML BOT EA EYE SCH (08:05)
[2016-04-15] MEDS: CeleCOXIB 100 MG CAP PO SCH (08:05)
[2016-04-15] MEDS: Furosemide 40 MG TAB PO SCH (08:06)
[2016-04-15] MEDS: Enoxaparin Sodium 30 MG/0.3 ML SYRINGE SC SCH (08:06)
[2016-04-15] MEDS: Gabapentin 300 MG CAP PO SCH ×3 (08:07→21:20)
[2016-04-15] MEDS: Potassium Chloride 20 MEQ TAB PO SCH (08:07)
[2016-04-15] MEDS: tiZANidine HCl 4 MG TAB PO SCH (08:07)
[2016-04-15] MEDS: oxyCODONE 5 MG TAB PO PRN ×3 (08:08→21:22)
[2016-04-15] MEDS: Nicotine 21 MG PATCH TD SCH (14:11)
--- NOTE | 2016-04-15 19:43 | PRG ---
DATE OF SERVICE: 04/15/2016 Ms. Cruz is a very pleasant 75-year-old white female that had totally replaced that got infected. Hardware was removed and spacers were placed. She was placed on IV antibiotics and physical thera py. She was sent back to [facility] where Dr. Baptiste did an I\T\D. It was irriga jose alejandro and closed back up and transferred back to [facility]. She is remaining here fo r IV antibiotics and supposed to go back to see Dr. Baptiste early Monday morning to place the repair on that knee. SUBJECTIVE: She has no complaints and decided about finally getting her knee fixed. PHYSICAL EXAMINATION: VITAL SIGNS: Blood pressure 154/67, pulse 63-70, respirations 16-18, O2 sat 95-97%, T-max 97.4. GENERAL: This is a well-developed, well-nourished, very pleasant white female in no apparent distre ss at this time. HEENT: Reveals normocephalic, nontraumatic cranium. Pupils are equally round and reactive to light and accommodation. Extraocular movements are intact. Nose and throat slightly dry. NECK: Supple without masses, nodes, or bruits. CHEST: Clear to auscultation. No rales, rhonchi, or wheezes are heard. CARDIOVASCULAR: Reveals a regular rate and rhythm without murmurs, gallops, or rubs. ABDOMEN: Soft, nontender, without organomegaly. Normal bowel sounds are noted. No rebound or guar ding is noted. Genitourinary: Deferred. EXTREMITIES: Reveal right leg in a leg immobilizer, still worried that tightly closed. Left leg re veals no significant clubbing, cyanosis, or edema. LABORATORIES: This morning revealed a white count 3000, hemoglobin 10.8, hematocrit 33.0 with a gale telet count of 144,000. LABORATORY DATA: Sodium 142, potassium 3.7, chloride 107, carbon dioxide 24. BUN is 25, creatinine 1.02. Albumin is 2.8. Her vancomycin trough yesterday was 13.6. IMPRESSION: 1. Septic arthritis, right knee, status post removal of hardware, and placement of spacers and rece nt irrigation. 2. Irritable bowel syndrome. 3. Degenerative joint disease. 4. Anxiety depressive disorder. 5. Hyperlipidemia. 6. Generalized weakness. 7. Tobacco abuse. 8. Quadriceps rupture status post repair. PLAN: 1. Continue present medications. Continue deep vein thrombosis and stress ulcer prophylaxis. 2. Continue physical therapy and occupational therapy. 3. Continue decubitus precautions. 4. Bowel regimen. LABORATORY DATA: 1. Labs were done yesterday. 2. To be transferred to [facility] early on the which is Monday f or repair of surgery. 3. Still nonweightbearing.
[2016-04-15] MEDS: Simvastatin 10 MG TAB PO SCH (21:20)
[2016-04-15] MEDS: traZODone HCl 50 MG TAB PO SCH (22:43)
[2016-04-16 03:21] LABS: Vancomycin, Trough 14.1 ug/mL
[2016-04-16] MEDS: Vancomycin HCl 750 MG in Sodium Chloride 0.9% 250 ML 250 ML IVPB SCH (03:48)
[2016-04-16] MEDS: Cefepime 1 GM in Sodium Chloride 0.9% 100 ML IVPB SCH ×2 (05:26→18:15)
[2016-04-16] MEDS: oxyCODONE 5 MG TAB PO PRN ×2 (05:28→14:08)
[2016-04-16] MEDS: Bupropion 150 MG XL TAB PO SCH (09:19)
[2016-04-16] MEDS: Cyclopentolate 1% Opth Drop 2 ML BOT EA EYE SCH (09:20)
[2016-04-16] MEDS: CeleCOXIB 100 MG CAP PO SCH (09:20)
[2016-04-16] MEDS: Enoxaparin Sodium 30 MG/0.3 ML SYRINGE SC SCH (09:22)
[2016-04-16] MEDS: Furosemide 40 MG TAB PO SCH (09:23)
[2016-04-16] MEDS: Gabapentin 300 MG CAP PO SCH ×3 (09:23→20:36)
[2016-04-16] MEDS: tiZANidine HCl 4 MG TAB PO SCH (09:24)
[2016-04-16] MEDS: Potassium Chloride 20 MEQ TAB PO SCH (09:24)
--- NOTE | 2016-04-16 10:13 | PRG ---
DATE OF SERVICE: 04/16/2016. HISTORY OF PRESENT ILLNESS: Mrs. Cruz is a very pleasant 75-year-old white female that had a tot al knee replaced that got infected. The hardware was removed, spacer was replaced and she was place d on IV antibiotics and physical therapy. She was sent back to [place] where Dr. Baptiste did a n incision and drainage of abscess, irrigated and closed it back and transferred back to [facility]. She is remaining here for antibiotics and supposed to go back to see Dr. Oliva pena y Monday morning for repair the knee. SUBJECTIVE: She has no complaints except she was constipated yesterday and is now having bowel move ments this morning. OBJECTIVE: VITAL SIGNS: Revealed blood pressure this morning is 156/67, pulse 63-64, respirations 18-20, O2 saturations 97-98% on room air. T-max is 96.7. PHYSICAL EXAMINATION: GENERAL: This is a well-developed, well-nourished, very pleasant white female, in no apparent distr ess at this time. HEENT: Reveals normocephalic, nontraumatic cranium. Pupils are equally round and reactive. Extrao cular movements intact. Nose and throat slightly dry. NECK: Supple, without masses, nodes or bruits. CHEST: Clear to auscultation. No rales, rhonchi, wheezes or cough is heard. CARDIOVASCULAR: Reveals a regular rate and rhythm without murmurs, gallops or rubs. ABDOMEN: Soft, nontender, without organomegaly, normal bowel sounds are noted. No rebound or guard ing is noted. GENITOURINARY: Deferred. EXTREMITIES: Reveal right leg and leg immobilizer still worried that she may not heal. The leg rev eals no clubbing, cyanosis or edema. LABORATORY DATA: The patient's vancomycin level yesterday was 14.1. IMPRESSION: 1. Septic arthritis, right knee, status post removal of hardware and placement of spacers and antib iotic beads with recent irrigation. 2. Irritable bowel syndrome. 3. Degenerative joint disease. 4. Hyperlipidemia. 5. Tobacco abuse. 6. Quadriceps rupture, status post repair. 7. Generalized weakness. 8. Anxiety, depressive disorder. PLAN: 1. Continue present medications. 2. Continues deep venous thrombosis and stress ulcer prophylaxes. 3. Continue physical therapy and occupational therapy. 4. Continued decubitus precautions. 5. Bowel regimen. Noted that the patient will be transferred to [facility] early Monday morning fo r surgery by Dr. Baptiste.
[2016-04-16] MEDS: Nicotine 21 MG PATCH TD SCH (14:07)
[2016-04-16] MEDS: ALPRAZolam 0.25 MG TAB PO PRN (19:13)
[2016-04-16] MEDS: Simvastatin 10 MG TAB PO SCH (20:36)
[2016-04-16] MEDS: traZODone HCl 50 MG TAB PO SCH (22:32)
[2016-04-17] MEDS: Vancomycin HCl 750 MG in Sodium Chloride 0.9% 250 ML 250 ML IVPB SCH (03:43)
[2016-04-17] MEDS: Cefepime 1 GM in Sodium Chloride 0.9% 100 ML IVPB SCH (05:13)
[2016-04-17] MEDS: oxyCODONE 5 MG TAB PO PRN (07:14)
--- NOTE | 2016-04-17 08:07 | PRG ---
DATE OF SERVICE: 04/17/2016. HISTORY OF PRESENT ILLNESS: The patient is a very pleasant 75-year-old white female that had a tota l knee replacement that got infected. Hardware was removed, spacer replaced. She was placed on IV antibiotics and physical therapy. She was sent back to [facility] a couple week s ago where Dr. Baptiste did incision and drainage of abscess, irrigation and transferred back to [facility]. She is ready to go back tomorrow morning, early at 6:30 the ambulance will picked her up for transport for completion of her surgery. She will be seeing Dr. Baptiste tomorrow morning. SUBJECTIVE: The patient is very anxious and crying this morning, she is just very nervous about thi ngs. She has been on Zoloft in the past and so we will restart her on that. OBJECTIVE: VITAL SIGNS: Revealed blood pressure this morning 142/72, pulse 61-64, respirations 16- 20, O2 saturations 97-98%, T-max is 97.5. PHYSICAL EXAMINATION: GENERAL: This is a well-developed, well-nourished, very pleasant white female, in no apparent distr ess at this time. HEENT: Reveals normocephalic, nontraumatic cranium. Pupils are equally round and reactive. Extrao cular movements intact. Nose and throat are slightly dry. NECK: Supple, without masses, nodes or bruits. CHEST: Clear to auscultation. No rales, rhonchi or wheezes are heard. CARDIOVASCULAR: Reveals a regular rate and rhythm without murmurs, gallops or rubs. ABDOMEN: Soft, nontender, without organomegaly, normal bowel sounds are noted. No rebound or guard ing is noted. GENITOURINARY: Deferred. EXTREMITIES: Reveal no clubbing, cyanosis or edema. ASSESSMENT: 1. Septic arthritis, right knee, status post removal of hardware and placement of spacers with anti biotics and followed by recent irrigation. 2. Irritable bowel syndrome. 3. Degenerative joint disease. 4. Anxiety depressive disorder. 5. Hyperlipidemia 6. Generalized weakness. 7. Tobacco abuse. 8. Quadriceps rupture, status post repair. PLAN: 1. Continue present medications. 2. Start Zoloft 100 mg, the patient has been on that before. 3. Continue deep venous thrombosis and stress ulcer prophylaxes. 4. Continue physical therapy and occupational therapy. 5. Continue decubitus precautions. 6. Continue bowel regimen. 7. The patient to be transferred to [facility] tomorrow morning, which is Monday morning at 6:30 in the morning, the transfer service will pick her. 8. Continue nonweightbearing. 9. The patient should do very well.
[2016-04-17] MEDS: CeleCOXIB 100 MG CAP PO SCH (09:19)
[2016-04-17] MEDS: Bupropion 150 MG XL TAB PO SCH (09:19)
[2016-04-17] MEDS: Cyclopentolate 1% Opth Drop 2 ML BOT EA EYE SCH (09:19)
[2016-04-17] MEDS: Enoxaparin Sodium 30 MG/0.3 ML SYRINGE SC SCH (09:20)
[2016-04-17] MEDS: Furosemide 40 MG TAB PO SCH (09:20)
[2016-04-17] MEDS: Potassium Chloride 20 MEQ TAB PO SCH (09:21)
[2016-04-17] MEDS: Gabapentin 300 MG CAP PO SCH (09:21)
[2016-04-17] MEDS: tiZANidine HCl 4 MG TAB PO SCH (09:21)
[2016-04-18 02:27] VITALS: BP 169/72; TEMP 96.4
[2016-04-18] MEDS: Vancomycin HCl 750 MG in Sodium Chloride 0.9% 250 ML 250 ML IVPB SCH (03:47)
[2016-04-18] MEDS: Gabapentin 300 MG CAP PO SCH (05:25)
[2016-04-18] MEDS: ALPRAZolam 0.25 MG TAB PO PRN (05:26)
[2016-04-18] MEDS: tiZANidine HCl 4 MG TAB PO SCH (05:26)
[2016-04-18] MEDS: Bupropion 150 MG XL TAB PO SCH (05:26)
[2016-04-18] MEDS: Cefepime 1 GM in Sodium Chloride 0.9% 100 ML IVPB SCH (05:28)
--- NOTE | 2016-04-18 19:56 | DIS ---
DATE OF ADMISSION: 04/01/2016 DATE OF DISCHARGE: 04/18/2016 PRINCIPAL DIAGNOSES: 1. Right knee septic arthritis for long-term antibiotics. 2. Degenerative joint disease. 3. Gastroesophageal reflux disease. 4. Peripheral neuropathy. 5. Irritable bowel syndrome. 6. Depression and anxiety. 7. Dyslipidemia. COMPLICATIONS: None. ADVERSE REACTIONS: None. PROCEDURES: None. CONSULTATIONS: None. HOSPITAL COURSE: The patient was admitted on 04/01/2016 for continued antibiotic therapy. She has tolerated the therapy well. She has finished her full course of antibiotics and she still is being transferred to [facility] for possible replacement of hardware by Dr. Baptiste. She did have an episode of pain and she felt a pop in her knee when she was hopping on her other leg. X-rays were done which did show some alignment, but that is probably because of removal of the hardw are, they were sent to Dr. Baptiste's office and his office was informed and to contact us if there were any changes need to made. We did not hear anything from his office. She also has not been complia nt with her immobilizer. She will keep her knees flexed and I told her that the main reason to have her immobilizer is to have a tight enough, so there is no flexing of the knees. She was started ba ck on the Zoloft for her depression. She continued on the Wellbutrin. She was otherwise doing well , tolerating her antibiotics and was discharged this morning. PHYSICAL EXAMINATION: VITAL SIGNS: On the day of discharge, she is afebrile, heart rate is 56, respirations are 16, oxyge n saturation is 97%, and blood pressure 169/72. CARDIOVASCULAR: S1, S2 plus. RESPIRATORY: Normal vesicular breath sounds. ABDOMEN: Soft, nontender, bowel sounds heard in all quadrants. EXTREMITIES: Without cyanosis, clubbing. Right knee in an immobilizer. Trace edema. Peripheral p ulses are palpable. LABORATORY DATA: Last laboratory values done 3 days ago shows a white count of 3, H\T\H is 10.8 and 33. Sed rate is down to 34, it was 54 a week ago. Sodium 142, potassium 3.7, BUN and creatinine i s 25 and 1.02, AST and ALT are normal. CRP is less than 0.5. DISCHARGE MEDICATIONS: Tylenol 650 q.4 p.r.n., Xanax 0.25 b.i.d. p.r.n., Wellbutrin XL 300 mg daily , Celebrex 200 mg daily, Bentyl 10 mg t.i.d., Lasix 40 mg daily, Neurontin 600 mg t.i.d., Nicoderm p atch 21 mg, which should be tapered down to 14 soon. Oxycodone IR 5 mg q.6 p.r.n., Protonix 40 mg d aily, potassium 20 mEq daily, Zoloft 50 mg b.i.d., it should be 100 mg daily, simvastatin 10 mg analilia y, tizanidine 4 mg daily, trazodone 50 mg at night, vancomycin and cefepime per Dr. Baptiste. For full details, please see chart. Total time spent on this discharge 35 minutes.
== END 2016-04-18 06:30 | disposition short-term general hospital (02) | DRG 560 ==
LOC: NAV ACUTE 13:03
PROVIDERS: ADMIT Internal Medicine; ATTEND Internal Medicine
DX: T84.54XA Infection and inflammatory reaction due to internal left knee prosthesis, initial encounter (principal); M00.862 Arthritis due to other bacteria, left knee; G62.9 Polyneuropathy, unspecified; B96.89 Other specified bacterial agents as the cause of diseases classified elsewhere; F17.210 Nicotine dependence, cigarettes, uncomplicated; B35.6 Tinea cruris; T81.31XA Disruption of external operation (surgical) wound, not elsewhere classified, initial encounter; M19.90 Unspecified osteoarthritis, unspecified site; K21.9 Gastro-esophageal reflux disease without esophagitis; K58.9 Irritable bowel syndrome, unspecified; F41.8 Other specified anxiety disorders; E78.5 Hyperlipidemia, unspecified; Z91.14 Patient's other noncompliance with medication regimen; Y79.3 Surgical instruments, materials and orthopedic devices (including sutures) associated with adverse incidents
CPT/HCPCS: 36415; 80053; 80202; 85025; 85652; 86140; A4216; C1751; J0692; J1650; J2405; J3370; J7050

== ENCOUNTER 2017-01-18 15:04 | Inpatient (IN) | payer MEDICARE, OTHER ==
[2017-01-18 18:17] VITALS: BMI 20.2
[2017-01-18] MEDS ORDERED: Bisacodyl 10 MG SUPP PR PRN (21:48)
[2017-01-18] MEDS ORDERED: Docusate 100 MG CAP PO PRN (21:50)
[2017-01-18] MEDS ORDERED: Milk Of Magnesia 30 ML UDCUP PO PRN (21:51)
[2017-01-18] MEDS ORDERED: Nicotine 21 MG PATCH TD SCH (22:00)
[2017-01-18] MEDS ORDERED: cefTRIAXone\\ROCEPHIN 2 GM in Sodium Chloride 0.9% 100 ML IVPB SCH (22:30)
[2017-01-19] MEDS: ALPRAZolam 0.25 MG TAB PO PRN (00:53)
[2017-01-19 05:12] LABS: #Eosinphils 0.3 thou/uL (0.0-0.7); #Lymphocytes 0.5 thou/uL (1.20-3.40); #Monocytes 0.3 thou/uL (0.11-0.59); #Neutrophils 4.8 thou/uL (1.40-6.50); %Basophils 0.7 % (0.0-1.0); %Eosinophils 5.4 % (0.0-10.0); %Lymphocytes 8.2 % (21.0-51.0); %Monocytes 5.1 % (0.0-10.0); %Neutrophils 80.6 % (42.0-75.0); Mean Corpuscular HGB CONC 31.2 g/dL (32.0-36.0); Mean Corpuscular Hemoglobin 30.5 pg (27.0-31.0); Mean Corpuscular Volume 97.7 fl (81.0-99.0); Mean Platelet Volume 6.5 fL (7.4-10.4); Platelet Count 290 thou/uL (130-400); RBC Distribution Width 16.8 % (11.5-14.5); Red Blood Cell (RBC) Count 3.26 mill/uL (4.20-5.40)
[2017-01-19 05:27] LABS: Vancomycin, Random 14.8 ug/mL (See Comment)
[2017-01-19] MEDS ORDERED: Sodium Chloride 0.9% 10 ML ONE (05:48)
[2017-01-19 05:51] LABS: ALT (SGPT) 15 U/L (8-55); AST (SGOT) 14 U/L (5-34); Albumin 2.6 g/dL (3.4-4.8); Alkaline Phosphatase 120 U/L (40-150); Anion Gap 13 mmol/L (10-20); BUN (Urea Nitrogen) 29 mg/dL (9.8-20.1); Bilirubin, Total 0.2 mg/dL (0.2-1.2); Calc. Creatinine Clearance 42 mL/min (70-130); Calcium 8.4 mg/dL (7.8-10.44); Carbon Dioxide 27 mmol/L (23-31); Chloride 103 mmol/L (98-107); Estimated GFR-MDRD 52; Globulin 2.8 g/dL (2.4-3.5); Glucose 88 mg/dL (83-110); Potassium 3.9 mmol/L (3.5-5.1); Protein, Total 5.4 g/dL (6.0-8.3); Sodium 139 mmol/L (136-145)
[2017-01-19] MEDS: Vancomycin HCl 750 MG in Sodium Chloride 0.9% 250 ML 250 ML IVPB SCH (06:05)
[2017-01-19] MEDS: HYDROcodone/Acetaminophen 10/325 mg Tablet PO PRN ×2 (06:34→14:07)
[2017-01-19] MEDS: cefTRIAXone\\ROCEPHIN 2 GM in Sodium Chloride 0.9% 100 ML IVPB SCH (08:06)
[2017-01-19] MEDS: Enoxaparin Sodium 30 MG/0.3 ML SYRINGE SC SCH (08:26)
[2017-01-19] MEDS: Lactinex Tablet PO SCH ×2 (08:26→21:38)
[2017-01-19] MEDS: Gabapentin 300 MG CAP PO SCH ×3 (08:26→21:35)
[2017-01-19] MEDS: Potassium Chloride 20 MEQ TAB PO SCH (08:27)
[2017-01-19] MEDS: Dicyclomine 20 MG TAB PO SCH ×3 (08:27→21:37)
[2017-01-19] MEDS: Meloxicam 7.5 MG TAB PO SCH (08:27)
[2017-01-19] MEDS: Bupropion 150 MG XL TAB PO SCH (08:27)
[2017-01-19] MEDS: tiZANidine HCl 4 MG TAB PO SCH ×3 (08:27→21:37)
[2017-01-19] MEDS: Furosemide 40 MG TAB PO SCH (08:27)
[2017-01-19] MEDS: cycloSPORINE 0.05% Ophthalmic Droperette EA EYE SCH ×2 (08:28→21:42)
[2017-01-19] MEDS: Nicotine 21 MG PATCH TD SCH (08:47)
[2017-01-19] MEDS ORDERED: CEFTRIAXONE SODIUM 2 GM IV SCH (09:00)
[2017-01-19] MEDS: traZODone HCl 50 MG TAB PO SCH (21:37)
[2017-01-19] MEDS: traMADol HCl 50 MG TAB PO PRN (21:39)
[2017-01-19] MEDS: Atorvastatin Calcium 10 MG TAB PO SCH (21:39)
--- NOTE | 2017-01-19 21:51 | HP ---
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 She has had multiple revisions, washouts, placemen t of antibiotic beads and has now had external fixator placed and removal of the prosthesis. She is admitted to the hospital for continued therapy and IV antibiotics that she has fallen twice at the [facility]. PAST SURGICAL HISTORY: Positive for multiple joint replacements, cardiac catheterization, neurostimu lator implantation, cholecystectomy, left shoulder replacement, pyloroplasty for obstruction, gastric bypass. PAST MEDICAL HISTORY: Positive for depression, Raynaud's phenomenon, hyperlipidemia, nonobstructive CAD. SOCIAL HISTORY: She is a former smoker, lives in a long term. She is a [employer]. FAMILY MEDICAL HISTORY: Father of a stroke. MEDICATIONS: Include on admission, alprazolam 0.25 twice daily as needed, acidophilus 2 tabs twice d aily, Dulcolax 10 mg suppository p.r.n., bupropion 300 mg daily, Rocephin 2 grams IV daily, Celebrex 200 daily, Restasis 1 mL to each eye twice daily, dicyclomine 20 mg 3 times daily, furosemide 40 analilia y, gabapentin 600 three times daily, [place] 10/325 every 4 hours as needed, meloxicam 7.5 daily, nicot ine patch 21 mg daily, Protonix 40 daily, KCl 20 mEq daily, sertraline 100 mg daily, tizanidine 4 mg 3 times daily, trazodone 50 mg nightly, vancomycin 750 mg daily. REVIEW OF SYSTEMS: HEENT: She denies any headaches or dizziness. Pulmonary: She denies cough, sputum production, pneu monia, asthma, tuberculosis. Cardiovascular: She has no chest pain, palpitations, orthopnea or danilo a. Gastrointestinal: She denies nausea, vomiting, diarrhea, constipation, abdominal pain. Genitour inary: She denies dysuria, hematuria, nocturia. Musculoskeletal: She denies pain in her shoulder a nd left hip and knee, but does have significant pain in her right leg. Neurologic: She denies local ized numbness, weakness in arms or extremities. PHYSICAL EXAMINATION: GENERAL: Patient is an elderly, thin, white female, appears cheerful, in mild distress from pain. S he is oriented x3 and cooperative. VITAL SIGNS: Showed her to have blood pressure 153/69, O2 sat is 99%, respirations 18, pulse 72, afe brile. HEENT: Pupils are equal, round, and react to light and accommodation. Sclerae are anicteric. Conju nctivae pale. Oral mucous membranes well hydrated. NECK: Supple. There are no nodes or masses. JVP is not elevated. LUNGS: Clear. CARDIAC: Shows regular rhythm. No gallops or murmurs. ABDOMEN: Soft, nontender with no masses or organomegaly. SKIN/EXTREMITIES: Show right leg with external fixator in place managed from the knee to above the a nkle. NEUROLOGICAL: Intact. LABORATORIES: Show her to have white count 6000, hematocrit 31, hemoglobin 10. Sodium is 139, potas sium 3.9, chloride 103, bicarbonate 27, BUN 29, creatinine 1.03, glucose 88, calcium 8.4, protein 5.4 , albumin 2.6, globulin 2.8. ASSESSMENT: 1. Recurrent right knee infection, now with removal of prosthetic knee and external fixator and anti biotic beads placed, on IV vancomycin and Rocephin long-term. 2. Significant depression, anxiety or noncompliance. We will monitor closely. 3. History of nonobstructive coronary artery disease. We will monitor closely. 4. Chronic kidney disease stage III, stable. PLAN: Continue antibiotic. Continue PT, OT, continued pain relief as needed. Continue to stress ul cer prophylaxis.
[2017-01-20] MEDS ORDERED: Sodium Chloride 0.9% 10 ML ONE (05:25)
[2017-01-20] MEDS: Vancomycin HCl 750 MG in Sodium Chloride 0.9% 250 ML 250 ML IVPB SCH (05:34)
[2017-01-20] MEDS: Potassium Chloride 20 MEQ TAB PO SCH (08:50)
[2017-01-20] MEDS: Enoxaparin Sodium 30 MG/0.3 ML SYRINGE SC SCH (08:50)
[2017-01-20] MEDS: Nicotine 21 MG PATCH TD SCH (08:50)
[2017-01-20] MEDS: Furosemide 40 MG TAB PO SCH (08:52)
[2017-01-20] MEDS: Gabapentin 300 MG CAP PO SCH ×3 (08:52→19:43)
[2017-01-20] MEDS: Bupropion 150 MG XL TAB PO SCH (08:52)
[2017-01-20] MEDS: tiZANidine HCl 4 MG TAB PO SCH ×3 (08:52→19:44)
[2017-01-20] MEDS: Dicyclomine 20 MG TAB PO SCH ×3 (08:53→19:43)
[2017-01-20] MEDS: Meloxicam 7.5 MG TAB PO SCH (08:53)
[2017-01-20] MEDS: cycloSPORINE 0.05% Ophthalmic Droperette EA EYE SCH ×2 (08:54→19:44)
[2017-01-20] MEDS: cefTRIAXone\\ROCEPHIN 2 GM in Sodium Chloride 0.9% 100 ML IVPB SCH (08:57)
[2017-01-20] MEDS: Lactinex Tablet PO SCH ×2 (08:59→19:44)
[2017-01-20] MEDS: Acetaminophen 325 MG TAB PO PRN (11:19)
[2017-01-20] MEDS: HYDROcodone/Acetaminophen 10/325 mg Tablet PO PRN ×2 (13:23→19:45)
[2017-01-20] MEDS: ALPRAZolam 0.25 MG TAB PO PRN (17:21)
[2017-01-20] MEDS: Atorvastatin Calcium 10 MG TAB PO SCH (19:43)
[2017-01-20] MEDS: traZODone HCl 50 MG TAB PO SCH (19:45)
[2017-01-21] MEDS: HYDROcodone/Acetaminophen 10/325 mg Tablet PO PRN ×4 (02:15→17:03)
[2017-01-21] MEDS: Vancomycin HCl 750 MG in Sodium Chloride 0.9% 250 ML 250 ML IVPB SCH (05:26)
[2017-01-21] MEDS: Sodium Chloride 0.9% 10 ML ONE (05:26)
[2017-01-21] MEDS: cefTRIAXone\\ROCEPHIN 2 GM in Sodium Chloride 0.9% 100 ML IVPB SCH (08:18)
[2017-01-21] MEDS: Potassium Chloride 20 MEQ TAB PO SCH (08:19)
[2017-01-21] MEDS: Bupropion 150 MG XL TAB PO SCH (08:20)
[2017-01-21] MEDS: Meloxicam 7.5 MG TAB PO SCH (08:21)
[2017-01-21] MEDS: Furosemide 40 MG TAB PO SCH (08:21)
[2017-01-21] MEDS: Lactinex Tablet PO SCH ×2 (08:21→21:16)
[2017-01-21] MEDS: Dicyclomine 20 MG TAB PO SCH ×3 (08:21→21:16)
[2017-01-21] MEDS: Gabapentin 300 MG CAP PO SCH ×3 (08:21→21:16)
[2017-01-21] MEDS: Enoxaparin Sodium 30 MG/0.3 ML SYRINGE SC SCH (08:21)
[2017-01-21] MEDS: Nicotine 21 MG PATCH TD SCH (08:22)
[2017-01-21] MEDS: cycloSPORINE 0.05% Ophthalmic Droperette EA EYE SCH ×2 (08:22→21:19)
[2017-01-21] MEDS: tiZANidine HCl 4 MG TAB PO SCH ×3 (08:23→21:16)
--- NOTE | 2017-01-21 21:06 | PRG ---
DATE OF SERVICE: 01/21/2017 SUBJECTIVE: The patient feels better, very tired, but walked with therapy today. She is able to get around, fixator in place, having controlled pain on medication. No fever, chills, or sweats. OBJECTIVE: VITAL SIGNS: Shows blood pressure 132/79, O2 sats 94%, pulse 85, afebrile. HEENT: Pupils are equal, round, and reactive to light and accommodation. LUNGS: Clear. CARDIAC EXAMINATION: Shows regular rhythm. EXTREMITIES: Right leg is in the fixator with no erythema or warmth. LABORATORY DATA: Laboratory not done today. ASSESSMENT: 1. Resolving right septic artificial knee, status post removal of knee and placement of antibiotic b ernestine and IV vancomycin and Rocephin. Vancomycin trough to be done 2 days. 2. Depression and anxiety, stable. 3. Chronic kidney disease, stable. PLAN: 1. Continue vancomycin and Rocephin. 2. Continue PT and OT. 3. Have Dr. Love check with Dr. Baptiste on follow up. 4. Continue stress ulcer prophylaxis. 5. Continue pain relief as needed.
[2017-01-21] MEDS: Atorvastatin Calcium 10 MG TAB PO SCH (21:16)
[2017-01-21] MEDS: traZODone HCl 50 MG TAB PO SCH (21:20)
--- NOTE | 2017-01-21 22:09 | PRG ---
DATE OF SERVICE: 01/20/2017 SUBJECTIVE: The patient feels better with decreasing pain in her right leg, fixator was in place. S lept well through the night with no shortness of breath, fever or chills. OBJECTIVE: VITAL SIGNS: Shows blood pressure 126/58, temperature is 99.4, pulse 86, respirations 18, O2 sats 9 7%. LUNGS: Clear. CARDIAC: Examination showed regular rhythm. No gallops or murmurs. ABDOMEN: Soft, nontender. EXTREMITIES: Right leg is wrapped with external fixator in place with no erythema, warmth, or draina ge. LABORATORY DATA: Show random vancomycin level yesterday was 14.8. ASSESSMENT: 1. Resolving recurrent infection of right artificial hip, status post removal of hip and placement o f spacer and external fixator. 2. Significant depression and anxiety, stable. 3. Nonobstructive coronary artery disease, asymptomatic. 4. Chronic kidney disease, stage 3, asymptomatic and stable. PLAN: 1. Continue IV antibiotics including vancomycin and Rocephin. 2. Check vancomycin trough level tomorrow. 3. PT, OT. 4. Pain relief as needed. 5. Stress ulcer prophylaxis.
[2017-01-21] MEDS ORDERED: Sodium Chloride 0.9% 250 ML 0 ML ONE (23:48)
[2017-01-22] MEDS: Vancomycin HCl 750 MG in Sodium Chloride 0.9% 250 ML 250 ML IVPB SCH (06:00)
[2017-01-22] MEDS: Sodium Chloride 0.9% 30 ML ONE (08:53)
[2017-01-22] MEDS: cefTRIAXone\\ROCEPHIN 2 GM in Sodium Chloride 0.9% 100 ML IVPB SCH (08:54)
[2017-01-22] MEDS: Nicotine 21 MG PATCH TD SCH (08:57)
[2017-01-22] MEDS: Enoxaparin Sodium 30 MG/0.3 ML SYRINGE SC SCH (08:59)
[2017-01-22] MEDS: cycloSPORINE 0.05% Ophthalmic Droperette EA EYE SCH ×2 (09:00→21:42)
[2017-01-22] MEDS: Lactinex Tablet PO SCH ×2 (09:59→21:41)
[2017-01-22] MEDS: Bupropion 150 MG XL TAB PO SCH (09:59)
[2017-01-22] MEDS: Potassium Chloride 20 MEQ TAB PO SCH (10:00)
[2017-01-22] MEDS: Furosemide 40 MG TAB PO SCH (10:00)
[2017-01-22] MEDS: Gabapentin 300 MG CAP PO SCH ×3 (10:00→21:41)
[2017-01-22] MEDS: tiZANidine HCl 4 MG TAB PO SCH ×3 (10:00→21:41)
[2017-01-22] MEDS: Dicyclomine 20 MG TAB PO SCH ×3 (10:00→21:42)
[2017-01-22] MEDS: Meloxicam 7.5 MG TAB PO SCH (10:00)
[2017-01-22] MEDS: Sodium Chloride 0.9% 10 ML ONE (10:01)
[2017-01-22] MEDS: HYDROcodone/Acetaminophen 10/325 mg Tablet PO PRN (15:38)
[2017-01-22] MEDS: traZODone HCl 50 MG TAB PO SCH (21:42)
[2017-01-22] MEDS: Atorvastatin Calcium 10 MG TAB PO SCH (21:42)
[2017-01-23] MEDS: HYDROcodone/Acetaminophen 10/325 mg Tablet PO PRN ×3 (04:59→20:51)
[2017-01-23 05:44] LABS: #Basophils 0.1 thou/uL (0.0-0.2); #Eosinphils 0.2 thou/uL (0.0-0.7); #Lymphocytes 0.4 thou/uL (1.20-3.40); #Monocytes 0.4 thou/uL (0.11-0.59); #Neutrophils 4.3 thou/uL (1.40-6.50); %Eosinophils 4.5 % (0.0-10.0); %Lymphocytes 7.1 % (21.0-51.0); %Monocytes 7.6 % (0.0-10.0); %Neutrophils 79.8 % (42.0-75.0); Hemoglobin 10.4 g/dL (12.0-16.0); Mean Corpuscular HGB CONC 32.3 g/dL (32.0-36.0); Mean Corpuscular Hemoglobin 31.1 pg (27.0-31.0); Mean Corpuscular Volume 96.6 fl (81.0-99.0); Mean Platelet Volume 7.3 fL (7.4-10.4); Platelet Count 231 thou/uL (130-400); RBC Distribution Width 16.3 % (11.5-14.5); Red Blood Cell (RBC) Count 3.33 mill/uL (4.20-5.40); White Blood Cell (WBC) Count 5.4 thou/uL (4.8-10.8)
[2017-01-23 06:01] LABS: Vancomycin, Trough 17.5 ug/mL
[2017-01-23 06:05] LABS: ALT (SGPT) 16 U/L (8-55); AST (SGOT) 17 U/L (5-34); Albumin 2.7 g/dL (3.4-4.8); Alkaline Phosphatase 96 U/L (40-150); Anion Gap 13 mmol/L (10-20); BUN (Urea Nitrogen) 22 mg/dL (9.8-20.1); Bilirubin, Total 0.2 mg/dL (0.2-1.2); Calc. Creatinine Clearance 48 mL/min (70-130); Calcium 8.7 mg/dL (7.8-10.44); Chloride 103 mmol/L (98-107); Estimated GFR-MDRD 60; Globulin 2.8 g/dL (2.4-3.5); Glucose 91 mg/dL (83-110); Potassium 4.1 mmol/L (3.5-5.1); Protein, Total 5.5 g/dL (6.0-8.3); Sodium 140 mmol/L (136-145)
[2017-01-23 06:09] LABS: CRP (Inflammatory) Less than 0.50 mg/dL (= or < 0.5); Carbon Dioxide 28 mmol/L (23-31)
[2017-01-23] MEDS ORDERED: Sodium Chloride 0.9% 250 ML 250 ML ONE (06:13)
[2017-01-23] MEDS: Vancomycin HCl 750 MG in Sodium Chloride 0.9% 250 ML 250 ML IVPB SCH (06:24)
[2017-01-23] MEDS: cefTRIAXone\\ROCEPHIN 2 GM in Sodium Chloride 0.9% 100 ML IVPB SCH (07:56)
[2017-01-23] MEDS: Acetaminophen 325 MG TAB PO PRN ×2 (07:57→17:31)
[2017-01-23] MEDS: Potassium Chloride 20 MEQ TAB PO SCH (07:57)
[2017-01-23] MEDS: traMADol HCl 50 MG TAB PO PRN ×2 (07:58→17:30)
[2017-01-23] MEDS: Nicotine 21 MG PATCH TD SCH (08:13)
[2017-01-23] MEDS: Enoxaparin Sodium 30 MG/0.3 ML SYRINGE SC SCH (08:13)
[2017-01-23] MEDS: Lactinex Tablet PO SCH ×2 (08:13→20:49)
[2017-01-23] MEDS: tiZANidine HCl 4 MG TAB PO SCH ×3 (08:14→20:50)
[2017-01-23] MEDS: Furosemide 40 MG TAB PO SCH (08:14)
[2017-01-23] MEDS: Bupropion 150 MG XL TAB PO SCH (08:14)
[2017-01-23] MEDS: Dicyclomine 20 MG TAB PO SCH ×3 (08:14→20:50)
[2017-01-23] MEDS: Meloxicam 7.5 MG TAB PO SCH (08:14)
[2017-01-23] MEDS: Gabapentin 300 MG CAP PO SCH ×3 (08:16→20:50)
[2017-01-23] MEDS: cycloSPORINE 0.05% Ophthalmic Droperette EA EYE SCH ×3 (08:16→20:57)
[2017-01-23] MEDS: Sodium Chloride 0.9% 30 ML ONE (08:17)
--- NOTE | 2017-01-23 13:43 | PRG ---
DATE OF SERVICE: 01/23/2017 SUBJECTIVE: Ms. Cruz is doing well. Denies any complaints, tolerating her medications. OBJECTIVE: VITAL SIGNS: She is afebrile, heart rate is 62, respirations 18, oxygen saturation 94%, blood pressu re was elevated this morning at 190/79. CARDIOVASCULAR: S1, S2 plus. RESPIRATORY SYSTEM: Normal vesicular breath sounds. ABDOMEN: Soft, nontender, bowel sounds heard in all quadrants. EXTREMITIES: Without cyanosis or clubbing. IMPRESSION: 1. Degenerative joint disease. 2. Gastroesophageal reflux disease. 3. Dyslipidemia. 4. Depression and anxiety. 5. Peripheral neuropathy. 6. Septic arthritis, recurrent requiring long-term IV antibiotics and elevated blood pressure. PLAN: 1. Amlodipine 5 mg daily. 2. She is on Xanax b.i.d. p.r.n. and Wellbutrin 300 mg daily as well as Zoloft. We will continue to monitor and if she continues to be depressed, we will increase the Zoloft 250 mg. 3. IV antibiotics. 4. Nutritional support. 5. DVT and stress ulcer prophylaxis. 6. Decubitus precautions. 7. Weekly CBC, CRP, sed rate. 8. Discussed with patient in detail and all questions answered.
[2017-01-23] MEDS: ALPRAZolam 0.25 MG TAB PO PRN (20:50)
[2017-01-23] MEDS: Amlodipine 5 MG TAB PO SCH (20:50)
[2017-01-23] MEDS: traZODone HCl 50 MG TAB PO SCH (20:50)
[2017-01-23] MEDS: Atorvastatin Calcium 10 MG TAB PO SCH (20:51)
[2017-01-24] MEDS: Vancomycin HCl 750 MG in Sodium Chloride 0.9% 250 ML 250 ML IVPB SCH (06:18)
[2017-01-24] MEDS: Nicotine 21 MG PATCH TD SCH (08:31)
[2017-01-24] MEDS: Enoxaparin Sodium 30 MG/0.3 ML SYRINGE SC SCH (08:31)
[2017-01-24] MEDS: Lactinex Tablet PO SCH ×2 (08:31→21:01)
[2017-01-24] MEDS: cefTRIAXone\\ROCEPHIN 2 GM in Sodium Chloride 0.9% 100 ML IVPB SCH (08:31)
[2017-01-24] MEDS: Dicyclomine 20 MG TAB PO SCH ×3 (08:32→21:00)
[2017-01-24] MEDS: Acetaminophen 325 MG TAB PO PRN ×2 (08:32→19:02)
[2017-01-24] MEDS: Gabapentin 300 MG CAP PO SCH ×3 (08:32→21:00)
[2017-01-24] MEDS: Potassium Chloride 20 MEQ TAB PO SCH (08:32)
[2017-01-24] MEDS: tiZANidine HCl 4 MG TAB PO SCH ×3 (08:33→21:00)
[2017-01-24] MEDS: Furosemide 40 MG TAB PO SCH (08:33)
[2017-01-24] MEDS: Meloxicam 7.5 MG TAB PO SCH (08:33)
[2017-01-24] MEDS: cycloSPORINE 0.05% Ophthalmic Droperette EA EYE SCH ×2 (08:33→21:00)
[2017-01-24] MEDS: Bupropion 150 MG XL TAB PO SCH (08:33)
[2017-01-24] MEDS: traMADol HCl 50 MG TAB PO PRN ×2 (08:36→19:02)
--- NOTE | 2017-01-24 13:37 | PRG ---
DATE OF SERVICE: 01/24/2017 SUBJECTIVE: Ms. Cruz is doing well. Denies any complaints. Pain is well controlled, tolerating her medications. OBJECTIVE: VITAL SIGNS: She is afebrile, heart rate 73, respirations 18, oxygen saturation 97%, and blood press ure is 163/75. CARDIOVASCULAR SYSTEM: S1, S2 plus. RESPIRATORY SYSTEM: Normal vesicular breath sounds. ABDOMEN: Soft, nontender, bowel sounds heard in all quadrants. EXTREMITIES: Without cyanosis or clubbing. IMPRESSION: 1. Right knee septic arthritis. 2. Hypertension, just started on amlodipine. 3. Degenerative joint disease. 4. Dyslipidemia. 5. Depression and anxiety. PLAN: 1. Continue current medications. 2. Nutritional support. 3. DVT and stress ulcer prophylaxis. 4. Decubitus precautions. 5. Weekly CBC, CRP, sed rate. 6. Routine laboratory values. 7. Discussed with patient in detail and all questions answered.
[2017-01-24] MEDS: HYDROcodone/Acetaminophen 10/325 mg Tablet PO PRN (15:15)
[2017-01-24] MEDS: ALPRAZolam 0.25 MG TAB PO PRN (21:00)
[2017-01-24] MEDS: Amlodipine 5 MG TAB PO SCH (21:00)
[2017-01-24] MEDS: Atorvastatin Calcium 10 MG TAB PO SCH (21:00)
[2017-01-24] MEDS: traZODone HCl 50 MG TAB PO SCH (21:01)
[2017-01-25] MEDS: Vancomycin HCl 750 MG in Sodium Chloride 0.9% 250 ML 250 ML IVPB SCH (05:52)
[2017-01-25] MEDS: HYDROcodone/Acetaminophen 10/325 mg Tablet PO PRN ×3 (09:12→20:34)
[2017-01-25] MEDS: Lactinex Tablet PO SCH ×2 (09:13→20:27)
[2017-01-25] MEDS: Dicyclomine 20 MG TAB PO SCH ×3 (09:13→20:28)
[2017-01-25] MEDS: Enoxaparin Sodium 30 MG/0.3 ML SYRINGE SC SCH (09:13)
[2017-01-25] MEDS: Gabapentin 300 MG CAP PO SCH ×3 (09:14→20:27)
[2017-01-25] MEDS: Potassium Chloride 20 MEQ TAB PO SCH (09:14)
[2017-01-25] MEDS: tiZANidine HCl 4 MG TAB PO SCH ×3 (09:14→20:27)
[2017-01-25] MEDS: Bupropion 150 MG XL TAB PO SCH (09:14)
[2017-01-25] MEDS: Furosemide 40 MG TAB PO SCH (09:14)
[2017-01-25] MEDS: Meloxicam 7.5 MG TAB PO SCH (09:15)
[2017-01-25] MEDS: cycloSPORINE 0.05% Ophthalmic Droperette EA EYE SCH ×2 (09:15→20:28)
[2017-01-25] MEDS: cefTRIAXone\\ROCEPHIN 2 GM in Sodium Chloride 0.9% 100 ML IVPB SCH (09:16)
[2017-01-25] MEDS: Nicotine 21 MG PATCH TD SCH (09:16)
--- NOTE | 2017-01-25 13:26 | PRG ---
DATE OF SERVICE: 01/25/2017 SUBJECTIVE: Ms. Cruz is doing the same. Denies any complaints, resting comfortably. Pain is con trolled. OBJECTIVE: VITAL SIGNS: She is afebrile. Her blood pressure is still high, it is 183/80, pulse is 69, respirat ions 18, oxygen saturation 97%. CARDIOVASCULAR SYSTEM: S1, S2 plus. RESPIRATORY SYSTEM: Normal vesicular breath sounds. ABDOMEN: Soft, nontender, bowel sounds heard in all quadrants. EXTREMITIES: Right leg with external fixator, left leg has occlusive dressing over her left ernst. CENTRAL NERVOUS SYSTEM: Improving deconditioning. IMPRESSION: 1. Hypertension, not well controlled. 2. Right knee septic arthritis status post external fixator placement. 3. Depression and anxiety. 4. Degenerative joint disease. 5. Gastroesophageal reflux disease. 6. Dyslipidemia. PLAN: 1. Increase amlodipine to 10 mg at night. 2. Add Lisinopril 10 mg in the morning. 3. Low sodium diet. 4. Continue IV antibiotics. 5. Pharmacy to adjust dosing. 6. Weekly CBC, CRP, sed rate. 7. Low sodium diet. 8. Therapy as tolerated. 9. Discussed with patient in detail and all questions answered.
[2017-01-25] MEDS: Amlodipine 10 MG TAB PO SCH (20:28)
[2017-01-25] MEDS: Atorvastatin Calcium 10 MG TAB PO SCH (20:28)
[2017-01-25] MEDS: traZODone HCl 50 MG TAB PO SCH (20:28)
[2017-01-26 05:26] LABS: Band 6 % (5-11); Eosinophils 4 % (0-10); Lymphocytes 7 % (21-51); MDiff Complete? YES; Mean Corpuscular HGB CONC 30.5 g/dL (32.0-36.0); Mean Corpuscular Hemoglobin 30.1 pg (27.0-31.0); Mean Corpuscular Volume 98.5 fl (81.0-99.0); Monocytes 7 % (0-10); Neutrophil 76 % (42-75); PLT Morphology Comment Appears Adequate; Platelet Count 218 thou/uL (130-400); RBC Distribution Width 15.7 % (11.5-14.5); RBC Morphology Normal; Red Blood Cell (RBC) Count 3.33 mill/uL (4.20-5.40); White Blood Cell (WBC) Count 6.2 thou/uL (4.8-10.8)
[2017-01-26 05:38] LABS: ALT (SGPT) 17 U/L (8-55); AST (SGOT) 16 U/L (5-34); Albumin 2.7 g/dL (3.4-4.8); Alkaline Phosphatase 89 U/L (40-150); Anion Gap 13 mmol/L (10-20); BUN (Urea Nitrogen) 16 mg/dL (9.8-20.1); Bilirubin, Total Less than 0.1 mg/dL (0.2-1.2); CRP (Inflammatory) 1.02 mg/dL (= or < 0.5); Calc. Creatinine Clearance 54 mL/min (70-130); Calcium 8.7 mg/dL (7.8-10.44); Carbon Dioxide 25 mmol/L (23-31); Chloride 105 mmol/L (98-107); Estimated GFR-MDRD 69; Globulin 2.8 g/dL (2.4-3.5); Glucose 83 mg/dL (83-110); Potassium 4.2 mmol/L (3.5-5.1); Protein, Total 5.5 g/dL (6.0-8.3); Sodium 139 mmol/L (136-145)
[2017-01-26] MEDS: Vancomycin HCl 750 MG in Sodium Chloride 0.9% 250 ML 250 ML IVPB SCH (05:45)
[2017-01-26] MEDS: cefTRIAXone\\ROCEPHIN 2 GM in Sodium Chloride 0.9% 100 ML IVPB SCH (07:30)
[2017-01-26] MEDS: Sodium Chloride 0.9% 10 ML ONE (07:31)
[2017-01-26] MEDS: Lisinopril 10 MG TAB PO SCH (08:33)
[2017-01-26] MEDS: Nicotine 21 MG PATCH TD SCH (08:33)
[2017-01-26] MEDS: Enoxaparin Sodium 30 MG/0.3 ML SYRINGE SC SCH (08:33)
[2017-01-26] MEDS: Furosemide 40 MG TAB PO SCH (08:34)
[2017-01-26] MEDS: Potassium Chloride 20 MEQ TAB PO SCH (08:34)
[2017-01-26] MEDS: Bupropion 150 MG XL TAB PO SCH (08:34)
[2017-01-26] MEDS: Gabapentin 300 MG CAP PO SCH ×3 (08:34→21:40)
[2017-01-26] MEDS: Lactinex Tablet PO SCH ×2 (08:35→21:39)
[2017-01-26] MEDS: Dicyclomine 20 MG TAB PO SCH ×3 (08:35→21:39)
[2017-01-26] MEDS: tiZANidine HCl 4 MG TAB PO SCH ×3 (08:35→21:39)
[2017-01-26] MEDS: Meloxicam 7.5 MG TAB PO SCH (08:35)
[2017-01-26] MEDS: HYDROcodone/Acetaminophen 10/325 mg Tablet PO PRN ×3 (08:35→17:40)
[2017-01-26] MEDS: cycloSPORINE 0.05% Ophthalmic Droperette EA EYE SCH ×2 (09:19→21:42)
--- NOTE | 2017-01-26 13:35 | PRG ---
DATE OF SERVICE: 01/26/2017 SUBJECTIVE: Ms. Cruz is doing well. Denies any complaints, resting comfortably and tolerating he r diet. She was started on lisinopril 10 mg in the morning and then amlodipine was increased to 10 a t night. OBJECTIVE: VITAL SIGNS: Her blood pressure is slightly better, it is 154/68, pulse 67, respirations 18 and oxyg en saturation 99%. CARDIOVASCULAR SYSTEM: S1 and S2 plus. RESPIRATORY SYSTEM: Normal vesicular breath sounds. ABDOMEN: Soft and nontender. Bowel sounds heard in all quadrants. EXTREMITIES: Without cyanosis or clubbing. Right leg with external fixator. CENTRAL NERVOUS SYSTEM: Generalized weakness. LABORATORY VALUES: White count of 6.2, hemoglobin and hematocrit is 10 and 32.8 with a sed rate of 6 7. Sodium 139, potassium 4.2, BUN and creatinine 16 and 0.81. Sed rate, CRP is 1.02. IMPRESSION: 1. Right knee septic arthritis, requiring external fixator. 2. Hypertension, improving. 3. Dyslipidemia. 4. Gastroesophageal reflux disease. 5. Peripheral neuropathy. 6. Depression and anxiety. PLAN: 1. Continue current medications. 2. Nutritional support. 3. IV antibiotics. 4. Weekly CBC, CRP and sed rate. 5. Monitor blood pressure and adjust medications. 6. Physical therapy. 7. I discussed with the patient in detail and all questions answered.
[2017-01-26] MEDS ORDERED: VANCOMYCIN IVPB PRN (13:49)
[2017-01-26] MEDS: Amlodipine 10 MG TAB PO SCH (21:39)
[2017-01-26] MEDS: traZODone HCl 50 MG TAB PO SCH (21:39)
[2017-01-26] MEDS: Atorvastatin Calcium 10 MG TAB PO SCH (21:39)
[2017-01-27 05:27] LABS: Vancomycin, Trough 16.7 ug/mL
[2017-01-27] MEDS: Vancomycin HCl 750 MG in Sodium Chloride 0.9% 250 ML 250 ML IVPB SCH (06:11)
[2017-01-27] MEDS: Sodium Chloride 0.9% 10 ML ONE (06:13)
[2017-01-27] MEDS ORDERED: Sodium Chloride 0.9% 20 ML ONE (08:30)
[2017-01-27] MEDS: cefTRIAXone\\ROCEPHIN 2 GM in Sodium Chloride 0.9% 100 ML IVPB SCH (08:43)
[2017-01-27] MEDS: Nicotine 21 MG PATCH TD SCH (08:44)
[2017-01-27] MEDS: Enoxaparin Sodium 30 MG/0.3 ML SYRINGE SC SCH (08:44)
[2017-01-27] MEDS: Potassium Chloride 20 MEQ TAB PO SCH (08:45)
[2017-01-27] MEDS: Lactinex Tablet PO SCH ×2 (08:45→21:14)
[2017-01-27] MEDS: Gabapentin 300 MG CAP PO SCH ×3 (08:46→21:12)
[2017-01-27] MEDS: Meloxicam 7.5 MG TAB PO SCH (08:46)
[2017-01-27] MEDS: Dicyclomine 20 MG TAB PO SCH ×3 (08:49→21:13)
[2017-01-27] MEDS: Lisinopril 10 MG TAB PO SCH (08:49)
[2017-01-27] MEDS: Bupropion 150 MG XL TAB PO SCH (08:49)
[2017-01-27] MEDS: tiZANidine HCl 4 MG TAB PO SCH ×3 (08:50→21:13)
[2017-01-27] MEDS: Furosemide 40 MG TAB PO SCH (08:50)
[2017-01-27] MEDS: cycloSPORINE 0.05% Ophthalmic Droperette EA EYE SCH ×2 (08:51→21:15)
--- NOTE | 2017-01-27 09:23 | PRG ---
DATE OF SERVICE: 01/27/2017 SUBJECTIVE: Ms. Cruz is doing well. Denies any complaints, resting comfortably, tolerating her m edications. OBJECTIVE: VITAL SIGNS: She is afebrile, heart rate 75, respirations 18, oxygen saturation 94%, blood pressure from this morning is not documented, but yesterday evening it was 124/87, it is still fluctuating. S he is tolerating both amlodipine and lisinopril. Denies any headaches or blurred vision. CARDIOVASCULAR: S1, S2 plus. RESPIRATORY: Normal vesicular breath sounds. ABDOMEN: Soft, nontender, bowel sounds heard in all quadrants. EXTREMITIES: Without cyanosis or clubbing. Right leg with an external immobilizer. IMPRESSION: 1. Right knee septic arthritis. 2. Hypertension, improving. 3. Depression and anxiety. 4. Peripheral neuropathy. 5. Gastroesophageal reflux disease. 6. Degenerative joint disease. 7. Dyslipidemia. PLAN: 1. Continue current medications. 2. Nutritional support. 3. IV antibiotics, dosing per pharmacy. 4. Weekly CBC, CRP, sed rate. 5. Low sodium diet. 6. DVT and stress ulcer prophylaxis. 7. Physical therapy. 8. Discussed with patient in detail and all questions answered.
[2017-01-27] MEDS: CeleCOXIB 100 MG CAP PO SCH ×3 (11:24→14:09)
[2017-01-27] MEDS: Acetaminophen 325 MG TAB PO PRN ×2 (13:20→21:14)
[2017-01-27] MEDS: Atorvastatin Calcium 10 MG TAB PO SCH (21:13)
[2017-01-27] MEDS: Amlodipine 10 MG TAB PO SCH (21:13)
[2017-01-27] MEDS: traZODone HCl 50 MG TAB PO SCH (21:14)
[2017-01-28] MEDS: Vancomycin HCl 750 MG in Sodium Chloride 0.9% 250 ML 250 ML IVPB SCH (06:11)
--- NOTE | 2017-01-28 08:49 | PRG ---
DATE OF SERVICE: 01/28/2017 DATE OF ADMISSION: 01/18/2017 HISTORY OF PRESENT ILLNESS: Ms. Cruz is a very pleasant 76-year-old white female with septic arth ritis. She had to have all of her hardware removed and has an external fixation device placed. She is on IV antibiotics. We will follow her in our office for her hypertension and/or anxiety. She states she is doing well today. She has no specific complaints. She states she is eating well. PHYSICAL EXAMINATION: VITAL SIGNS: Today reveal blood pressure 162/70, pulse 63-70, respirations 18-20, O2 sat 97%, and T- max 97.8. GENERAL: This is a well-developed, well-nourished, slightly obese white female in no apparent distre ss at this time. HEENT: Reveals normocephalic and nontraumatic cranium. Pupils are equally round and reactive. Extr aocular movements intact. Nose and throat are slightly dry. NECK: Supple, without masses, nodes or bruits. CHEST: Clear to auscultation. No rales, no rhonchi, no wheezes are heard. HEART: Reveals a regular rate and rhythm without murmurs, gallops or rubs. ABDOMEN: Soft and nontender, without organomegaly. Normal bowel sounds are noted in all 4 quadrants . GENITOURINARY: Exam is deferred. EXTREMITIES: Reveal no clubbing, cyanosis or edema. The right leg continues with external knee immo bilizer. No red or inflamed or infected sites are noted. LABORATORY DATA: Vancomycin trough this morning is 16.7. IMPRESSION: 1. Septic arthritis, right knee. 2. Hypertension, stable, but fluctuating. 3. Peripheral neuropathy. 4. Gastroesophageal reflux disease. 5. Degenerative joint disease. 6. Hyperlipidemia. 7. Peripheral neuropathy. 8. Anxiety depressive disorder. 9. Generalized weakness. PLAN: 1. Continue IV vancomycin per pharmacy. 2. Continue weekly CBC, C-reactive protein, and sed rate. 3. Continue with cardiac low sodium diet. 4. Continue present medications. 5. DVT prophylaxis. 6. Stress ulcer prophylaxis. 7. Continue physical therapy. 8. I answered all the patient's questions.
[2017-01-28] MEDS: Nicotine 21 MG PATCH TD SCH (08:54)
[2017-01-28] MEDS: Enoxaparin Sodium 30 MG/0.3 ML SYRINGE SC SCH (08:55)
[2017-01-28] MEDS: Lactinex Tablet PO SCH ×2 (08:55→20:36)
[2017-01-28] MEDS: Potassium Chloride 20 MEQ TAB PO SCH (08:58)
[2017-01-28] MEDS: Gabapentin 300 MG CAP PO SCH ×3 (08:58→20:36)
[2017-01-28] MEDS: Meloxicam 7.5 MG TAB PO SCH (08:58)
[2017-01-28] MEDS: cycloSPORINE 0.05% Ophthalmic Droperette EA EYE SCH ×2 (08:58→20:35)
[2017-01-28] MEDS: Bupropion 150 MG XL TAB PO SCH (08:59)
[2017-01-28] MEDS: Lisinopril 10 MG TAB PO SCH (08:59)
[2017-01-28] MEDS: Dicyclomine 20 MG TAB PO SCH ×3 (08:59→20:36)
[2017-01-28] MEDS: tiZANidine HCl 4 MG TAB PO SCH ×3 (08:59→20:36)
[2017-01-28] MEDS: Furosemide 40 MG TAB PO SCH (08:59)
[2017-01-28] MEDS: cefTRIAXone\\ROCEPHIN 2 GM in Sodium Chloride 0.9% 100 ML IVPB SCH (09:00)
[2017-01-28] MEDS: Atorvastatin Calcium 10 MG TAB PO SCH (20:36)
[2017-01-28] MEDS: Amlodipine 10 MG TAB PO SCH (20:36)
[2017-01-28] MEDS: ALPRAZolam 0.25 MG TAB PO PRN (20:36)
[2017-01-28] MEDS: traZODone HCl 50 MG TAB PO SCH (20:36)
[2017-01-29] MEDS: HYDROcodone/Acetaminophen 10/325 mg Tablet PO PRN ×2 (02:43→14:48)
[2017-01-29] MEDS: Vancomycin HCl 750 MG in Sodium Chloride 0.9% 250 ML 250 ML IVPB SCH (05:28)
--- NOTE | 2017-01-29 07:43 | PRG ---
DATE OF SERVICE: 01/29/2017 DATE OF ADMISSION: 01/18/2017 HISTORY OF PRESENT ILLNESS: Ms. Cruz is a very pleasant 76-year-old white female with septic arth ritis. Unfortunately, she had a fracture and she had an external fixator placed. She fell and had t hat redone. She is presently on IV antibiotics. She is actually admitted to the hospital for contin ued physical therapy and occupational therapy. She has no complaints today and states she is doing w ell and is not constipated. PHYSICAL EXAMINATION: VITAL SIGNS: Reveal blood pressure is 138/70, pulse 66-75, respirations 14-18, O2 sat 96%-97%, T-max is 98.7. GENERAL: This is a well-developed, well-nourished, slightly obese white female in no apparent distre ss at this time. HEENT: Reveals normocephalic and nontraumatic cranium. Pupils are equally round and reactive. Extr aocular movements are intact. Nose and throat are still somewhat dry. NECK: Supple, without masses, nodes or bruits. LUNGS: Chest is clear to auscultation. No rales, no rhonchi, no wheezes are heard. No cough is not ed. HEART: Reveals regular rate and rhythm without murmurs, gallops or rubs. ABDOMEN: Soft and nontender. No organomegaly is noted. Normal bowel sounds are noted. No rebound or guarding is noted. GENITOURINARY: Deferred. EXTREMITIES: Reveal no clubbing, cyanosis or edema. The patient continues to be encompassed in an e xternal knee immobilizer. LABORATORY DATA: Vancomycin trough level yesterday was 16.7. IMPRESSION: 1. Septic arthritis of the right knee. 2. Hypertension, fluctuating. 3. Peripheral neuropathy. 4. Gastroesophageal reflux. 5. Hyperlipidemia. 6. Degenerative joint disease. 7. Anxiety depressive disorder. 8. Generalized weakness. PLAN: 1. Continue IV vancomycin per pharmacy orders. 2. Continue cardiac low sodium diet. 3. Stress ulcer prophylaxis. 4. DVT prophylaxis. 5. Decubitus precautions. 6. Continue physical therapy and occupational therapy. 7. Continue present medications.
[2017-01-29] MEDS: cefTRIAXone\\ROCEPHIN 2 GM in Sodium Chloride 0.9% 100 ML IVPB SCH (08:17)
[2017-01-29] MEDS: traMADol HCl 50 MG TAB PO PRN (09:18)
[2017-01-29] MEDS: Lisinopril 10 MG TAB PO SCH (09:18)
[2017-01-29] MEDS: Dicyclomine 20 MG TAB PO SCH ×3 (09:18→21:35)
[2017-01-29] MEDS: Nicotine 21 MG PATCH TD SCH (09:18)
[2017-01-29] MEDS: Lactinex Tablet PO SCH ×2 (09:18→21:36)
[2017-01-29] MEDS: Bupropion 150 MG XL TAB PO SCH (09:19)
[2017-01-29] MEDS: Meloxicam 7.5 MG TAB PO SCH (09:20)
[2017-01-29] MEDS: Gabapentin 300 MG CAP PO SCH ×3 (09:20→21:35)
[2017-01-29] MEDS: Furosemide 40 MG TAB PO SCH (09:20)
[2017-01-29] MEDS: Potassium Chloride 20 MEQ TAB PO SCH (09:20)
[2017-01-29] MEDS: tiZANidine HCl 4 MG TAB PO SCH ×3 (09:20→21:35)
[2017-01-29] MEDS: Acetaminophen 325 MG TAB PO PRN (09:20)
[2017-01-29] MEDS: Enoxaparin Sodium 30 MG/0.3 ML SYRINGE SC SCH (09:21)
[2017-01-29] MEDS: cycloSPORINE 0.05% Ophthalmic Droperette EA EYE SCH ×2 (09:21→21:34)
[2017-01-29] MEDS: Atorvastatin Calcium 10 MG TAB PO SCH (21:35)
[2017-01-29] MEDS: traZODone HCl 50 MG TAB PO SCH (21:35)
[2017-01-29] MEDS: ALPRAZolam 0.25 MG TAB PO PRN (21:35)
[2017-01-29] MEDS: Amlodipine 10 MG TAB PO SCH (21:35)
[2017-01-30 05:16] LABS: Vancomycin, Trough 16.4 ug/mL
[2017-01-30] MEDS: HYDROcodone/Acetaminophen 10/325 mg Tablet PO PRN (05:43)
[2017-01-30] MEDS: Vancomycin HCl 750 MG in Sodium Chloride 0.9% 250 ML 250 ML IVPB SCH (05:44)
[2017-01-30] MEDS ORDERED: Sodium Chloride 0.9% 20 ML ONE (08:37)
[2017-01-30] MEDS: Enoxaparin Sodium 30 MG/0.3 ML SYRINGE SC SCH (08:38)
[2017-01-30] MEDS: cefTRIAXone\\ROCEPHIN 2 GM in Sodium Chloride 0.9% 100 ML IVPB SCH (08:38)
[2017-01-30] MEDS: cycloSPORINE 0.05% Ophthalmic Droperette EA EYE SCH ×2 (08:39→21:11)
[2017-01-30] MEDS: Nicotine 21 MG PATCH TD SCH (08:39)
[2017-01-30] MEDS: Bupropion 150 MG XL TAB PO SCH (08:40)
[2017-01-30] MEDS: Lactinex Tablet PO SCH ×2 (08:40→21:11)
[2017-01-30] MEDS: Meloxicam 7.5 MG TAB PO SCH (08:40)
[2017-01-30] MEDS: Furosemide 40 MG TAB PO SCH (08:40)
[2017-01-30] MEDS: Dicyclomine 20 MG TAB PO SCH ×3 (08:41→21:11)
[2017-01-30] MEDS: Potassium Chloride 20 MEQ TAB PO SCH (08:42)
[2017-01-30] MEDS: Lisinopril 10 MG TAB PO SCH ×2 (08:42→08:43)
[2017-01-30] MEDS: tiZANidine HCl 4 MG TAB PO SCH ×3 (08:44→21:11)
[2017-01-30] MEDS: Gabapentin 300 MG CAP PO SCH ×3 (08:45→21:11)
--- NOTE | 2017-01-30 13:34 | PRG ---
DATE OF SERVICE: 01/30/2017 SUBJECTIVE: Ms. Cruz is doing the same. Denies any complaints. She asked me if there is any way what her chances of getting rid of the infection and explained to her that is why we are trying to d o these long-term IV antibiotics to see if we can clear the infection and also we can get the hardwar e replaced. She asked me what if it does not work and I explained to her that is the question, she jing morrow ask her orthopedic surgeon as I am not sure what they had discussed in the past and what the pl ans are for the future. She is doing well otherwise. OBJECTIVE: VITAL SIGNS: She is afebrile, heart rate is 77, respirations 20, oxygen saturation 96%, blood pressu re 136/63. CARDIOVASCULAR: S1, S2 plus. RESPIRATORY: Normal vesicular breath sounds. ABDOMEN: Soft, nontender, bowel sounds heard in all quadrants. EXTREMITIES: Without cyanosis or clubbing. IMPRESSION: 1. Right knee septic arthritis. 2. Hypertension, much improved. 3. Depression and anxiety. 4. Peripheral neuropathy. 5. Gastroesophageal reflux disease. 6. Degenerative joint disease. 7. Dyslipidemia. PLAN: 1. Continue current medications. 2. Nutritional support. 3. Continue IV antibiotics. 4. Weekly CBC, CRP, sed rate. Next due on the . 5. Continue low sodium diet. 6. Deep venous thrombosis and stress ulcer prophylaxis. 7. Physical therapy. 8. Discussed with patient in detail and all questions answered.
[2017-01-30] MEDS: traMADol HCl 50 MG TAB PO PRN (14:30)
[2017-01-30 15:05] LABS: Hemoglobin 10.3 g/dL (12.0-16.0); Mean Corpuscular HGB CONC 33.8 g/dL (32.0-36.0); Mean Corpuscular Hemoglobin 32.1 pg (27.0-31.0); Mean Corpuscular Volume 94.9 fl (81.0-99.0); Mean Platelet Volume 7.7 fL (7.4-10.4); Platelet Count 217 thou/uL (130-400); RBC Distribution Width 15.5 % (11.5-14.5); White Blood Cell (WBC) Count 11.3 thou/uL (4.8-10.8)
[2017-01-30 15:06] LABS: Band 3 % (5-11); Eosinophils 2 % (0-10); Hypochromia SLIGHT = 6-15 cells (100X) (0-5/hpf); Lymphocytes 3 % (21-51); MDiff Complete? YES; Monocytes 2 % (0-10); Neutrophil 89 % (42-75); Poikilocytosis SLIGHT = 6-15 cells (100X) (0-5/hpf)
[2017-01-30 15:24] LABS: ALT (SGPT) 19 U/L (8-55); AST (SGOT) 18 U/L (5-34); Albumin 2.9 g/dL (3.4-4.8); Alkaline Phosphatase 74 U/L (40-150); Anion Gap 16 mmol/L (10-20); BUN (Urea Nitrogen) Less than 4 mg/dL (9.8-20.1); Bilirubin, Total Less than 0.1 mg/dL (0.2-1.2); Calc. Creatinine Clearance 37 mL/min (70-130); Calcium 8.2 mg/dL (7.8-10.44); Carbon Dioxide 24 mmol/L (23-31); Chloride 103 mmol/L (98-107); Estimated GFR-MDRD 44; Glucose 119 mg/dL (83-110); Potassium 4.7 mmol/L (3.5-5.1); Protein, Total Less than 0.8 g/dL (6.0-8.3); Sodium 138 mmol/L (136-145)
[2017-01-30] MEDS: Atorvastatin Calcium 10 MG TAB PO SCH (21:11)
[2017-01-30] MEDS: ALPRAZolam 0.25 MG TAB PO PRN (21:11)
[2017-01-30] MEDS: traZODone HCl 50 MG TAB PO SCH (21:11)
[2017-01-30] MEDS: Amlodipine 10 MG TAB PO SCH (21:12)
[2017-01-31] MEDS: traMADol HCl 50 MG TAB PO PRN ×2 (02:04→14:48)
[2017-01-31] MEDS: Acetaminophen 325 MG TAB PO PRN (02:04)
[2017-01-31] MEDS: Vancomycin HCl 750 MG in Sodium Chloride 0.9% 250 ML 250 ML IVPB SCH (06:10)
[2017-01-31] MEDS: HYDROcodone/Acetaminophen 10/325 mg Tablet PO PRN (06:10)
[2017-01-31] MEDS ORDERED: Sodium Chloride 0.9% 20 ML ONE (07:22)
[2017-01-31] MEDS: Enoxaparin Sodium 30 MG/0.3 ML SYRINGE SC SCH (08:26)
[2017-01-31] MEDS: Nicotine 21 MG PATCH TD SCH (08:26)
[2017-01-31] MEDS: cefTRIAXone\\ROCEPHIN 2 GM in Sodium Chloride 0.9% 100 ML IVPB SCH (08:26)
[2017-01-31] MEDS: cycloSPORINE 0.05% Ophthalmic Droperette EA EYE SCH ×2 (08:27→21:29)
[2017-01-31] MEDS: Gabapentin 300 MG CAP PO SCH ×3 (08:28→21:29)
[2017-01-31] MEDS: Dicyclomine 20 MG TAB PO SCH ×3 (08:28→21:30)
[2017-01-31] MEDS: Meloxicam 7.5 MG TAB PO SCH (08:28)
[2017-01-31] MEDS: Bupropion 150 MG XL TAB PO SCH (08:28)
[2017-01-31] MEDS: Potassium Chloride 20 MEQ TAB PO SCH (08:28)
[2017-01-31] MEDS: Furosemide 40 MG TAB PO SCH (08:28)
[2017-01-31] MEDS: tiZANidine HCl 4 MG TAB PO SCH ×3 (08:29→21:30)
[2017-01-31] MEDS: Lisinopril 10 MG TAB PO SCH (08:29)
[2017-01-31] MEDS: Lactinex Tablet PO SCH ×2 (08:30→21:30)
--- NOTE | 2017-01-31 13:31 | PRG ---
DATE OF SERVICE: 01/31/2017 SUBJECTIVE: Ms. Cruz is doing well up in her chair. Denies any complaints. She states that she is eating better. OBJECTIVE: VITAL SIGNS: She is afebrile, heart rate 71, respirations 20, oxygen saturation 96%, blood pressure 144/67. CARDIOVASCULAR: S1, S2 plus. RESPIRATORY: Normal vesicular breath sounds. ABDOMEN: Soft, nontender, bowel sounds heard in all quadrants. EXTREMITIES: Without cyanosis or clubbing. Right leg with a knee external immobilizer. LABORATORY VALUES: White count 11.3, H&H is 10.3 and 30.4, sodium 138, potassium 4.7, BUN and creati nine is 4 and 1.19. CRP is 2.3, it was 1.02 on the 30. IMPRESSION: 1. Right knee septic arthritis, status post external fixator placement. 2. Depression and anxiety. 3. Peripheral neuropathy. 4. Hypertension, much improved. 5. Gastroesophageal reflux disease. 6. Degenerative joint disease. 7. Dyslipidemia. PLAN: 1. Continue current medications. 2. Weekly CBC, CRP, sed rate. 3. Deep venous thrombosis and stress ulcer prophylaxis. 4. Decubitus precautions. 5. Routine laboratory values. 6. Outpatient follow up with Dr. Baptiste. 7. Encourage p.o. intake. 8. Physical therapy. 9. Discussed with patient in detail and all questions answered. 10. CRP is elevated, but she was not due for it today. We will recheck it again in the when she is due for her weekly labs.
[2017-01-31] MEDS: traZODone HCl 50 MG TAB PO SCH (21:30)
[2017-01-31] MEDS: Atorvastatin Calcium 10 MG TAB PO SCH (21:30)
[2017-01-31] MEDS: Amlodipine 10 MG TAB PO SCH (21:30)
[2017-02-01] MEDS: HYDROcodone/Acetaminophen 10/325 mg Tablet PO PRN ×4 (05:54→20:44)
[2017-02-01] MEDS: Vancomycin HCl 750 MG in Sodium Chloride 0.9% 250 ML 250 ML IVPB SCH (05:54)
[2017-02-01] MEDS: cefTRIAXone\\ROCEPHIN 2 GM in Sodium Chloride 0.9% 100 ML IVPB SCH (07:40)
[2017-02-01] MEDS: Nicotine 21 MG PATCH TD SCH (08:54)
[2017-02-01] MEDS: Lactinex Tablet PO SCH ×2 (08:56→20:34)
[2017-02-01] MEDS: Potassium Chloride 20 MEQ TAB PO SCH (08:56)
[2017-02-01] MEDS: Gabapentin 300 MG CAP PO SCH ×3 (08:56→20:35)
[2017-02-01] MEDS: Bupropion 150 MG XL TAB PO SCH (08:56)
[2017-02-01] MEDS: Furosemide 40 MG TAB PO SCH (08:56)
[2017-02-01] MEDS: Dicyclomine 20 MG TAB PO SCH ×3 (08:57→20:35)
[2017-02-01] MEDS: Lisinopril 10 MG TAB PO SCH (08:57)
[2017-02-01] MEDS: Meloxicam 7.5 MG TAB PO SCH (08:57)
[2017-02-01] MEDS: tiZANidine HCl 4 MG TAB PO SCH ×3 (08:58→20:35)
[2017-02-01] MEDS: Enoxaparin Sodium 30 MG/0.3 ML SYRINGE SC SCH (08:58)
[2017-02-01] MEDS: cycloSPORINE 0.05% Ophthalmic Droperette EA EYE SCH ×2 (08:58→20:36)
--- NOTE | 2017-02-01 12:06 | PRG ---
DATE OF SERVICE: 01/30/2017 SUBJECTIVE: Ms. Cruz is doing well. Denies any complaints, resting comfortably, tolerating her a ntibiotics and her therapy. Discussed with nursing and no concerns or questions. She apparently has a followup appointment with her orthopedic surgeon on 02/07/2017. OBJECTIVE: VITAL SIGNS: She is afebrile, heart rate 70, respirations 14, oxygen saturation 99%, blood pressure is 146/67. CARDIOVASCULAR SYSTEM: S1, S2 plus. RESPIRATORY SYSTEM: Normal vesicular breath sounds. ABDOMEN: Soft, nontender, bowel sounds heard in all quadrants. EXTREMITIES: Without cyanosis or clubbing. Right leg with an external knee immobilizer. IMPRESSION: 1. Right knee septic arthritis. 2. Hypertension, improving. 3. Dyslipidemia. 4. Peripheral neuropathy. 5. Depression and anxiety. PLAN: 1. Continue current antibiotic regimen. 2. Recheck CRP and sed rate tomorrow. 3. Follow up with orthopedic surgeon on 02/07/2017. 4. Nutritional support. 5. Physical therapy. 6. Routine laboratory values. 7. I discussed with the patient in detail and all questions answered.
[2017-02-01] MEDS: Amlodipine 10 MG TAB PO SCH (20:34)
[2017-02-01] MEDS: Atorvastatin Calcium 10 MG TAB PO SCH (20:35)
[2017-02-01] MEDS: traZODone HCl 50 MG TAB PO SCH (20:35)
[2017-02-01] MEDS: ALPRAZolam 0.25 MG TAB PO PRN (22:34)
[2017-02-02] MEDS: HYDROcodone/Acetaminophen 10/325 mg Tablet PO PRN ×2 (05:52→16:00)
[2017-02-02] MEDS: Vancomycin HCl 750 MG in Sodium Chloride 0.9% 250 ML 250 ML IVPB SCH (05:53)
[2017-02-02] MEDS: Lisinopril 10 MG TAB PO SCH (08:00)
[2017-02-02] MEDS: cefTRIAXone\\ROCEPHIN 2 GM in Sodium Chloride 0.9% 100 ML IVPB SCH (08:41)
[2017-02-02] MEDS: Potassium Chloride 20 MEQ TAB PO SCH (08:42)
[2017-02-02] MEDS: Nicotine 21 MG PATCH TD SCH (09:41)
[2017-02-02] MEDS: Gabapentin 300 MG CAP PO SCH ×3 (09:41→19:35)
[2017-02-02] MEDS: Enoxaparin Sodium 30 MG/0.3 ML SYRINGE SC SCH (09:41)
[2017-02-02] MEDS: Lactinex Tablet PO SCH ×2 (09:43→19:35)
[2017-02-02] MEDS: Bupropion 150 MG XL TAB PO SCH (09:43)
[2017-02-02] MEDS: Dicyclomine 20 MG TAB PO SCH ×3 (09:43→19:35)
[2017-02-02] MEDS: Furosemide 40 MG TAB PO SCH (09:43)
[2017-02-02] MEDS: tiZANidine HCl 4 MG TAB PO SCH ×3 (09:43→19:36)
[2017-02-02] MEDS: cycloSPORINE 0.05% Ophthalmic Droperette EA EYE SCH ×2 (09:44→19:36)
[2017-02-02] MEDS: Meloxicam 7.5 MG TAB PO SCH (09:44)
--- NOTE | 2017-02-02 12:52 | PRG ---
DATE OF SERVICE: 02/02/2017 SUBJECTIVE: Ms. Cruz is doing well. Denies any complaints, resting comfortably, tolerating her t herapy. OBJECTIVE: VITAL SIGNS: She is afebrile, heart rate 69, respirations 20, oxygen saturation 98%, blood pressure 146/66. CARDIOVASCULAR: S1, S2 plus. RESPIRATORY: Normal vesicular breath sounds. ABDOMEN: Soft, nontender, bowel sounds heard. EXTREMITIES: Without cyanosis or clubbing. External fixator is in place for her right leg. In the superior portion of the external fixator is that there is some superficial skin loss, it is almost li ke this skin is being pulled taut and there are some open areas, it is not infected. We will order s ome topical Bactroban. IMPRESSION: 1. Right knee septic arthritis. 2. Hypertension, much improved. 3. Dyslipidemia. 4. Peripheral neuropathy. 5. Gastroesophageal reflux disease. 6. History of bariatric surgery. 7. Depression and anxiety. PLAN: 1. Topical Bactroban. 2. Recheck CRP and sed rate tomorrow. 3. Continue IV antibiotics. 4. Nutritional support. 5. Low sodium diet. 6. DVT and stress ulcer prophylaxis. 7. Decubitus precautions. 8. Routine laboratory values. 9. Physical therapy.
[2017-02-02] MEDS: Mupirocin 2% Ointment 22 GM Tube TOP SCH ×2 (15:58→19:36)
[2017-02-02] MEDS: Amlodipine 10 MG TAB PO SCH (19:34)
[2017-02-02] MEDS: Atorvastatin Calcium 10 MG TAB PO SCH (19:35)
[2017-02-02] MEDS: ALPRAZolam 0.25 MG TAB PO PRN (19:37)
[2017-02-02] MEDS: traZODone HCl 50 MG TAB PO SCH (19:37)
[2017-02-03 05:26] LABS: Vancomycin, Trough 18.4 ug/mL
[2017-02-03] MEDS: Vancomycin HCl 750 MG in Sodium Chloride 0.9% 250 ML 250 ML IVPB SCH (05:54)
[2017-02-03] MEDS: HYDROcodone/Acetaminophen 10/325 mg Tablet PO PRN ×2 (06:50→15:55)
[2017-02-03] MEDS: cefTRIAXone\\ROCEPHIN 2 GM in Sodium Chloride 0.9% 100 ML IVPB SCH (08:47)
[2017-02-03] MEDS: Gabapentin 300 MG CAP PO SCH ×3 (08:48→20:55)
[2017-02-03] MEDS: Mupirocin 2% Ointment 22 GM Tube TOP SCH ×3 (08:48→20:56)
[2017-02-03] MEDS: Nicotine 21 MG PATCH TD SCH (08:48)
[2017-02-03] MEDS: Potassium Chloride 20 MEQ TAB PO SCH (08:49)
[2017-02-03] MEDS: Lactinex Tablet PO SCH ×2 (08:49→20:55)
[2017-02-03] MEDS: Lisinopril 10 MG TAB PO SCH (08:49)
[2017-02-03] MEDS: Meloxicam 7.5 MG TAB PO SCH (08:49)
[2017-02-03] MEDS: Furosemide 40 MG TAB PO SCH (08:49)
[2017-02-03] MEDS: tiZANidine HCl 4 MG TAB PO SCH ×3 (08:50→20:55)
[2017-02-03] MEDS: Bupropion 150 MG XL TAB PO SCH (08:51)
[2017-02-03] MEDS: cycloSPORINE 0.05% Ophthalmic Droperette EA EYE SCH ×2 (08:51→20:55)
[2017-02-03] MEDS: Enoxaparin Sodium 30 MG/0.3 ML SYRINGE SC SCH (08:51)
[2017-02-03] MEDS: Dicyclomine 20 MG TAB PO SCH ×3 (08:51→20:55)
--- NOTE | 2017-02-03 09:15 | PRG ---
DATE OF SERVICE: 02/03/2017 SUBJECTIVE: Ms. Cruz doing well. Denies any complaints, resting comfortably, tolerating her anti biotics and her therapy. OBJECTIVE: VITAL SIGNS: She is afebrile, heart rate is 77, respirations 18, oxygen saturation 97%, and blood pr essure is 127/61. CARDIOVASCULAR: S1 and S2 plus. RESPIRATORY: Normal vesicular breath sounds. ABDOMEN: Soft, nontender, bowel sounds heard in all quadrants. EXTREMITIES: Without cyanosis or clubbing. Right leg in an external fixator. IMPRESSION: 1. Right knee septic arthritis on long-term IV antibiotics. 2. Hypertension, much improved. 3. Dyslipidemia. 4. Peripheral neuropathy. 5. Gastroesophageal reflux disease. 6. Depression and anxiety. PLAN: 1. Continue current medications. 2. Nutritional support. 3. DVT and stress ulcer prophylaxis. 4. Decubitus precautions. 5. Routine laboratory values.
[2017-02-03] MEDS: Amlodipine 10 MG TAB PO SCH (20:54)
[2017-02-03] MEDS: Atorvastatin Calcium 10 MG TAB PO SCH (20:55)
[2017-02-03] MEDS: traZODone HCl 50 MG TAB PO SCH (20:55)
[2017-02-04] MEDS: HYDROcodone/Acetaminophen 10/325 mg Tablet PO PRN ×3 (04:17→20:25)
[2017-02-04] MEDS: Vancomycin HCl 750 MG in Sodium Chloride 0.9% 250 ML 250 ML IVPB SCH (05:29)
[2017-02-04] MEDS: cefTRIAXone\\ROCEPHIN 2 GM in Sodium Chloride 0.9% 100 ML IVPB SCH (09:10)
[2017-02-04] MEDS: Meloxicam 7.5 MG TAB PO SCH (09:12)
[2017-02-04] MEDS: Furosemide 40 MG TAB PO SCH (09:12)
[2017-02-04] MEDS: Bupropion 150 MG XL TAB PO SCH (09:12)
[2017-02-04] MEDS: Lactinex Tablet PO SCH ×2 (09:13→20:22)
[2017-02-04] MEDS: Dicyclomine 20 MG TAB PO SCH ×3 (09:13→20:22)
[2017-02-04] MEDS: Gabapentin 300 MG CAP PO SCH ×3 (09:13→20:21)
[2017-02-04] MEDS: Potassium Chloride 20 MEQ TAB PO SCH (09:13)
[2017-02-04] MEDS: tiZANidine HCl 4 MG TAB PO SCH ×3 (09:13→20:23)
[2017-02-04] MEDS: Mupirocin 2% Ointment 22 GM Tube TOP SCH ×3 (09:14→20:23)
[2017-02-04] MEDS: Lisinopril 10 MG TAB PO SCH (09:14)
[2017-02-04] MEDS: Enoxaparin Sodium 30 MG/0.3 ML SYRINGE SC SCH (09:14)
[2017-02-04] MEDS: Nicotine 21 MG PATCH TD SCH (09:14)
[2017-02-04] MEDS: cycloSPORINE 0.05% Ophthalmic Droperette EA EYE SCH ×2 (09:23→20:21)
--- NOTE | 2017-02-04 15:10 | PRG ---
DATE OF SERVICE: 02/04/2017 SUBJECTIVE: Ms. Cruz is doing well. Denies any complaints, resting comfortably, tolerating her m edications. OBJECTIVE: VITAL SIGNS: She is afebrile, heart rate is 74, respirations 18, oxygen saturation 98%, blood pressu re was slightly elevated this morning 165/76. CARDIOVASCULAR SYSTEM: S1, S2 plus. RESPIRATORY SYSTEM: Normal vesicular breath sounds. ABDOMEN: Soft, nontender, bowel sounds heard in all quadrants. EXTREMITIES: Without cyanosis or clubbing. Right leg with external fixator. IMPRESSION: 1. Right knee septic arthritis status post placement of external fixator. 2. Hypertension, well controlled except for one episode this morning. We will continue to monitor. 3. Dyslipidemia. 4. Gastroesophageal reflux disease. 5. Depression and anxiety. 6. History of bariatric surgery. PLAN: 1. Continue current medications. 2. IV antibiotics. 3. Nutritional support. 4. DVT and stress ulcer prophylaxis. 5. Decubitus precautions. 6. Physical therapy.
[2017-02-04] MEDS: Atorvastatin Calcium 10 MG TAB PO SCH (20:22)
[2017-02-04] MEDS: Amlodipine 10 MG TAB PO SCH (20:22)
[2017-02-04] MEDS: traZODone HCl 50 MG TAB PO SCH (20:23)
[2017-02-04] MEDS: ALPRAZolam 0.25 MG TAB PO PRN (20:26)
[2017-02-05] MEDS: Vancomycin HCl 750 MG in Sodium Chloride 0.9% 250 ML 250 ML IVPB SCH (05:00)
[2017-02-05 05:24] LABS: Vancomycin, Trough 16.7 ug/mL
--- NOTE | 2017-02-05 09:12 | PRG ---
DATE OF SERVICE: 02/05/2017 SUBJECTIVE: Ms. Cruz is doing well. Denies any complaints, resting comfortably, tolerating her m edications and her therapy. OBJECTIVE: VITAL SIGNS: She is afebrile, heart rate 73, respiration is 18, oxygen saturation 96%, blood pressur e 130/62. CARDIOVASCULAR SYSTEM: S1, S2 plus. RESPIRATORY SYSTEM: Normal vesicular breath sounds. ABDOMEN: Soft, nontender, bowel sounds heard in all quadrants. EXTREMITIES: Without cyanosis or clubbing. Right leg with an external fixator. CENTRAL NERVOUS SYSTEM: Generalized weakness. IMPRESSION: 1. Right knee septic arthritis requiring multiple surgeries, external fixator placement and IV antib iotic therapy. 2. Hypertension, well controlled. 3. Dyslipidemia. 4. Gastroesophageal reflux disease. 5. Peripheral neuropathy. 6. Status post bariatric surgery. 7. Anxiety and depression. PLAN: 1. She is due for her weekly laboratory values tomorrow. 2. Continue IV antibiotics. Pharmacy to adjust dosing. 3. DVT and stress ulcer prophylaxis. 4. Decubitus precautions. 5. Physical therapy. 6. Nutritional support. 7. She has a followup appointment with her orthopedic surgeon on Monday.
[2017-02-05] MEDS: Bupropion 150 MG XL TAB PO SCH (09:33)
[2017-02-05] MEDS: Nicotine 21 MG PATCH TD SCH (09:33)
[2017-02-05] MEDS: Lactinex Tablet PO SCH ×2 (09:34→19:31)
[2017-02-05] MEDS: Dicyclomine 20 MG TAB PO SCH ×3 (09:34→19:31)
[2017-02-05] MEDS: Potassium Chloride 20 MEQ TAB PO SCH (09:34)
[2017-02-05] MEDS: Lisinopril 10 MG TAB PO SCH (09:34)
[2017-02-05] MEDS: tiZANidine HCl 4 MG TAB PO SCH ×3 (09:34→19:32)
[2017-02-05] MEDS: Meloxicam 7.5 MG TAB PO SCH (09:34)
[2017-02-05] MEDS: Furosemide 40 MG TAB PO SCH (09:34)
[2017-02-05] MEDS: Gabapentin 300 MG CAP PO SCH ×3 (09:34→19:31)
[2017-02-05] MEDS: Enoxaparin Sodium 30 MG/0.3 ML SYRINGE SC SCH (09:35)
[2017-02-05] MEDS: cefTRIAXone\\ROCEPHIN 2 GM in Sodium Chloride 0.9% 100 ML IVPB SCH (09:35)
[2017-02-05] MEDS: cycloSPORINE 0.05% Ophthalmic Droperette EA EYE SCH ×2 (09:36→19:32)
[2017-02-05] MEDS: Mupirocin 2% Ointment 22 GM Tube TOP SCH ×3 (09:36→19:32)
[2017-02-05] MEDS: HYDROcodone/Acetaminophen 10/325 mg Tablet PO PRN (13:35)
[2017-02-05] MEDS: ALPRAZolam 0.25 MG TAB PO PRN (13:35)
[2017-02-05] MEDS: Amlodipine 10 MG TAB PO SCH (19:30)
[2017-02-05] MEDS: Atorvastatin Calcium 10 MG TAB PO SCH (19:31)
[2017-02-05] MEDS: traZODone HCl 50 MG TAB PO SCH (19:32)
[2017-02-06] MEDS: HYDROcodone/Acetaminophen 10/325 mg Tablet PO PRN ×3 (03:19→14:06)
[2017-02-06] MEDS: Vancomycin HCl 750 MG in Sodium Chloride 0.9% 250 ML 250 ML IVPB SCH (05:41)
[2017-02-06 06:08] LABS: #Eosinphils 0.2 thou/uL (0.0-0.7); #Lymphocytes 0.4 thou/uL (1.20-3.40); #Monocytes 0.3 thou/uL (0.11-0.59); #Neutrophils 4.3 thou/uL (1.40-6.50); %Basophils 0.5 % (0.0-1.0); %Eosinophils 4.5 % (0.0-10.0); %Lymphocytes 7.8 % (21.0-51.0); %Monocytes 6.2 % (0.0-10.0); Mean Corpuscular HGB CONC 32.2 g/dL (32.0-36.0); Mean Corpuscular Hemoglobin 30.7 pg (27.0-31.0); Mean Corpuscular Volume 95.4 fl (81.0-99.0); Mean Platelet Volume 6.9 fL (7.4-10.4); Platelet Count 216 thou/uL (130-400); RBC Distribution Width 13.8 % (11.5-14.5); Red Blood Cell (RBC) Count 3.25 mill/uL (4.20-5.40); White Blood Cell (WBC) Count 5.3 thou/uL (4.8-10.8)
[2017-02-06 06:20] LABS: ALT (SGPT) 28 U/L (8-55); AST (SGOT) 18 U/L (5-34); Albumin 2.8 g/dL (3.4-4.8); Alkaline Phosphatase 68 U/L (40-150); Anion Gap 12 mmol/L (10-20); Calc. Creatinine Clearance 52 mL/min (70-130); Calcium 8.9 mg/dL (7.8-10.44); Carbon Dioxide 28 mmol/L (23-31); Chloride 103 mmol/L (98-107); Estimated GFR-MDRD 66; Glucose 94 mg/dL (83-110); Potassium 4.3 mmol/L (3.5-5.1); Sodium 139 mmol/L (136-145)
[2017-02-06] MEDS: cefTRIAXone\\ROCEPHIN 2 GM in Sodium Chloride 0.9% 100 ML IVPB SCH (08:02)
[2017-02-06] MEDS: Mupirocin 2% Ointment 22 GM Tube TOP SCH ×3 (08:03→19:53)
[2017-02-06] MEDS: Nicotine 21 MG PATCH TD SCH (08:04)
[2017-02-06] MEDS: Enoxaparin Sodium 30 MG/0.3 ML SYRINGE SC SCH (08:04)
[2017-02-06] MEDS: Lactinex Tablet PO SCH ×2 (08:04→19:52)
[2017-02-06] MEDS: Bupropion 150 MG XL TAB PO SCH (08:05)
[2017-02-06] MEDS: Lisinopril 10 MG TAB PO SCH (08:05)
[2017-02-06] MEDS: Furosemide 40 MG TAB PO SCH (08:05)
[2017-02-06] MEDS: Dicyclomine 20 MG TAB PO SCH ×3 (08:05→19:52)
[2017-02-06] MEDS: Gabapentin 300 MG CAP PO SCH ×3 (08:05→19:52)
[2017-02-06] MEDS: Meloxicam 7.5 MG TAB PO SCH (08:05)
[2017-02-06] MEDS: Potassium Chloride 20 MEQ TAB PO SCH (08:06)
[2017-02-06] MEDS: cycloSPORINE 0.05% Ophthalmic Droperette EA EYE SCH ×2 (08:06→19:53)
[2017-02-06] MEDS: tiZANidine HCl 4 MG TAB PO SCH ×3 (08:06→19:53)
[2017-02-06 08:09] LABS: BUN (Urea Nitrogen) 23 mg/dL (9.8-20.1)
[2017-02-06 08:10] LABS: Bilirubin, Total 0.1 mg/dL (0.2-1.2)
[2017-02-06 08:11] LABS: Globulin 2.7 g/dL (2.4-3.5); Protein, Total 5.5 g/dL (6.0-8.3)
--- NOTE | 2017-02-06 13:18 | PRG ---
DATE OF SERVICE: 02/06/2017 SUBJECTIVE: Ms. Cruz is doing well. Denies any complaints, resting comfortably. She has an outp atient with Dr. Baptiste tomorrow. She had her weekly CBC, CRP, and sed rate, and unfortunately her sed rate keeps climbing up, results are being faxed to Dr. Hernandez. I advised him to send a copy to Dr. Cisco mcgarry as well. She apparently is developing some perineal rash and I will order Nystatin. OBJECTIVE: VITAL SIGNS: She is afebrile, heart rate 75, respirations 20, oxygen saturation 97%, blood pressure 130/63. CARDIOVASCULAR: S1, S2 plus. RESPIRATORY: Normal vesicular breath sounds. ABDOMEN: Soft, nontender, bowel sounds heard in all quadrants. EXTREMITIES: Without cyanosis or clubbing. Right leg with external fixator. Possible yeast infecti on in her groin. IMPRESSION: 1. Right knee septic arthritis. 2. Hypertension, well controlled. 3. Dyslipidemia. 4. Peripheral neuropathy. 5. Gastroesophageal reflux disease. 6. Status post bariatric surgery. 7. Depression and anxiety. 8. Tinea cruris. PLAN: 1. Add Nystatin powder. 2. Continue vancomycin. 3. Send copies of labs to Dr. Baptiste. They are being faxed to Dr. Hernandez. 4. Routine laboratory values. 5. Nutritional support. 6. Physical therapy. 7. I discussed with the patient in detail.
[2017-02-06 14:44] LABS: CRP (Inflammatory) 0.78 mg/dL (= or < 0.5)
[2017-02-06] MEDS: Acetaminophen 325 MG TAB PO PRN (17:22)
[2017-02-06] MEDS: traMADol HCl 50 MG TAB PO PRN (17:23)
[2017-02-06] MEDS: Amlodipine 10 MG TAB PO SCH (19:51)
[2017-02-06] MEDS: Atorvastatin Calcium 10 MG TAB PO SCH (19:52)
[2017-02-06] MEDS: traZODone HCl 50 MG TAB PO SCH (19:53)
[2017-02-07] MEDS ORDERED: Sodium Chloride 0.9% 10 ML ONE (05:33)
[2017-02-07] MEDS: Vancomycin HCl 750 MG in Sodium Chloride 0.9% 250 ML 250 ML IVPB SCH (05:37)
[2017-02-07] MEDS: ALPRAZolam 0.25 MG TAB PO PRN (05:42)
[2017-02-07] MEDS: cefTRIAXone\\ROCEPHIN 2 GM in Sodium Chloride 0.9% 100 ML IVPB SCH (07:10)
[2017-02-07] MEDS: Meloxicam 7.5 MG TAB PO SCH (07:58)
[2017-02-07] MEDS: Lisinopril 10 MG TAB PO SCH (07:58)
[2017-02-07] MEDS: Potassium Chloride 20 MEQ TAB PO SCH (07:59)
[2017-02-07] MEDS: tiZANidine HCl 4 MG TAB PO SCH ×3 (07:59→20:35)
[2017-02-07] MEDS: HYDROcodone/Acetaminophen 10/325 mg Tablet PO PRN ×2 (08:00→14:11)
[2017-02-07] MEDS: Gabapentin 300 MG CAP PO SCH ×3 (08:00→20:34)
[2017-02-07] MEDS: Dicyclomine 20 MG TAB PO SCH ×3 (08:00→20:34)
[2017-02-07] MEDS: Lactinex Tablet PO SCH ×2 (08:00→20:34)
[2017-02-07] MEDS: Bupropion 150 MG XL TAB PO SCH (08:00)
[2017-02-07] MEDS: Enoxaparin Sodium 30 MG/0.3 ML SYRINGE SC SCH (08:02)
[2017-02-07] MEDS: cycloSPORINE 0.05% Ophthalmic Droperette EA EYE SCH ×2 (08:02→20:35)
[2017-02-07] MEDS: Mupirocin 2% Ointment 22 GM Tube TOP SCH ×3 (09:00→20:35)
[2017-02-07] MEDS: Furosemide 40 MG TAB PO SCH (11:18)
[2017-02-07] MEDS: traMADol HCl 50 MG TAB PO PRN (11:18)
[2017-02-07] MEDS: Nicotine 21 MG PATCH TD SCH (11:20)
[2017-02-07] MEDS ORDERED: Nicotine 21 MG PATCH TD SCH (13:00)
[2017-02-07] MEDS: Amlodipine 10 MG TAB PO SCH (20:33)
[2017-02-07] MEDS: Atorvastatin Calcium 10 MG TAB PO SCH (20:34)
[2017-02-07] MEDS: Nystatin Powder 15 GM BOT TOP PRN (20:35)
[2017-02-07] MEDS: traZODone HCl 50 MG TAB PO SCH (20:35)
[2017-02-08] MEDS: HYDROcodone/Acetaminophen 10/325 mg Tablet PO PRN ×4 (03:28→21:21)
[2017-02-08 05:32] LABS: Vancomycin, Trough 17.5 ug/mL
[2017-02-08] MEDS: Vancomycin HCl 750 MG in Sodium Chloride 0.9% 250 ML 250 ML IVPB SCH (06:02)
[2017-02-08] MEDS: cefTRIAXone\\ROCEPHIN 2 GM in Sodium Chloride 0.9% 100 ML IVPB SCH (08:57)
[2017-02-08] MEDS: Nicotine 21 MG PATCH TD SCH (08:57)
[2017-02-08] MEDS: Enoxaparin Sodium 30 MG/0.3 ML SYRINGE SC SCH (08:57)
[2017-02-08] MEDS: Lactinex Tablet PO SCH ×2 (08:58→20:01)
[2017-02-08] MEDS: Potassium Chloride 20 MEQ TAB PO SCH (08:58)
[2017-02-08] MEDS: Mupirocin 2% Ointment 22 GM Tube TOP SCH ×3 (08:58→20:02)
[2017-02-08] MEDS: Gabapentin 300 MG CAP PO SCH ×3 (08:59→20:01)
[2017-02-08] MEDS: Bupropion 150 MG XL TAB PO SCH (08:59)
[2017-02-08] MEDS: Meloxicam 7.5 MG TAB PO SCH (08:59)
[2017-02-08] MEDS: Dicyclomine 20 MG TAB PO SCH ×3 (09:00→20:01)
[2017-02-08] MEDS: tiZANidine HCl 4 MG TAB PO SCH ×3 (09:00→20:04)
[2017-02-08] MEDS: Lisinopril 10 MG TAB PO SCH (09:00)
[2017-02-08] MEDS: Furosemide 40 MG TAB PO SCH (09:00)
[2017-02-08] MEDS: cycloSPORINE 0.05% Ophthalmic Droperette EA EYE SCH ×2 (09:00→20:02)
--- NOTE | 2017-02-08 12:28 | PRG ---
DATE OF SERVICE: 02/08/2017 SUBJECTIVE: Ms. Cruz is doing well. Denies any complaints, resting comfortably. She was seen by her orthopedic surgeon and he apparently is happy with the progress. She is scheduled for surgery o n 02/17/2017. She denies any concerns or questions. OBJECTIVE: VITAL SIGNS: She is afebrile, heart rate 71, respiration is 20, oxygen saturation 97%, blood pressur e 146/67. CARDIOVASCULAR SYSTEM: S1, S2 plus. RESPIRATORY SYSTEM: Normal vesicular breath sounds. ABDOMEN: Soft, nontender, bowel sounds heard in all quadrants. EXTREMITIES: Without cyanosis or clubbing. Right leg in an external fixator. IMPRESSION: 1. Right knee septic arthritis status post external fixator placement and multiple courses of IV ant ibiotics. 2. Hypertension, much improved. 3. Dyslipidemia. 4. Gastroesophageal reflux disease. 5. Peripheral neuropathy. 6. Status post bariatric surgery. 7. Anxiety and depression. PLAN: 1. Continue current medications. 2. Nutritional support. 3. DVT and stress ulcer prophylaxis. 4. Decubitus precautions. 5. Continue vancomycin and Rocephin. 6. Weekly CBC, CRP, sed rate. 7. Physical therapy. 8. Wound care.
[2017-02-08] MEDS: Amlodipine 10 MG TAB PO SCH (20:01)
[2017-02-08] MEDS: Atorvastatin Calcium 10 MG TAB PO SCH (20:01)
[2017-02-08] MEDS: traZODone HCl 50 MG TAB PO SCH (20:02)
[2017-02-09] MEDS: HYDROcodone/Acetaminophen 10/325 mg Tablet PO PRN ×4 (04:22→21:19)
[2017-02-09] MEDS: Vancomycin HCl 750 MG in Sodium Chloride 0.9% 250 ML 250 ML IVPB SCH (06:04)
[2017-02-09] MEDS: Nicotine 21 MG PATCH TD SCH (08:38)
[2017-02-09] MEDS: Gabapentin 300 MG CAP PO SCH ×3 (08:39→21:18)
[2017-02-09] MEDS: Lactinex Tablet PO SCH ×2 (08:39→21:18)
[2017-02-09] MEDS: Lisinopril 10 MG TAB PO SCH (08:39)
[2017-02-09] MEDS: Bupropion 150 MG XL TAB PO SCH (08:39)
[2017-02-09] MEDS: Dicyclomine 20 MG TAB PO SCH ×3 (08:39→21:19)
[2017-02-09] MEDS: Meloxicam 7.5 MG TAB PO SCH (08:39)
[2017-02-09] MEDS: tiZANidine HCl 4 MG TAB PO SCH ×3 (08:39→21:20)
[2017-02-09] MEDS: Furosemide 40 MG TAB PO SCH (08:39)
[2017-02-09] MEDS: Potassium Chloride 20 MEQ TAB PO SCH (08:40)
[2017-02-09] MEDS: Mupirocin 2% Ointment 22 GM Tube TOP SCH ×3 (08:41→21:20)
[2017-02-09] MEDS: Enoxaparin Sodium 30 MG/0.3 ML SYRINGE SC SCH (08:41)
[2017-02-09] MEDS: cycloSPORINE 0.05% Ophthalmic Droperette EA EYE SCH ×2 (08:41→21:20)
[2017-02-09] MEDS: cefTRIAXone\\ROCEPHIN 2 GM in Sodium Chloride 0.9% 100 ML IVPB SCH (08:41)
--- NOTE | 2017-02-09 13:07 | PRG ---
DATE OF SERVICE: 02/09/2017 SUBJECTIVE: Ms. Cruz is doing well. Denies any complaints, resting comfortably, tolerating her a ntibiotics. OBJECTIVE: VITAL SIGNS: She is afebrile, heart rate is 76, respirations 20, oxygen saturation 97%, blood pressu re 141/69. CARDIOVASCULAR: S1, S2 plus. RESPIRATORY: Normal vesicular breath sounds. ABDOMEN: Soft, nontender, bowel sounds heard in all quadrants. EXTREMITIES: Without cyanosis or clubbing. Right leg with external fixator. IMPRESSION: 1. Right knee septic arthritis on long-term IV antibiotics. 2. Hypertension, well controlled. 3. Dyslipidemia. 4. Peripheral neuropathy. 5. Gastroesophageal reflux disease. 6. Depression and anxiety. 7. Status post bariatric surgery. PLAN: 1. Continue current medications. 2. IV antibiotics. 3. Nutritional support. 4. Low sodium diet. 5. DVT and stress ulcer prophylaxis. 6. Decubitus precaution. 7. Physical therapy. 8. Weekly CBC, CRP, sed rate. 9. She is scheduled for surgery on 02/17/2017 discuss with the patient in detail. All questions ans wered.
[2017-02-09] MEDS: ALPRAZolam 0.25 MG TAB PO PRN (13:18)
[2017-02-09] MEDS: Atorvastatin Calcium 10 MG TAB PO SCH (21:18)
[2017-02-09] MEDS: traZODone HCl 50 MG TAB PO SCH (21:20)
[2017-02-09] MEDS: Amlodipine 10 MG TAB PO SCH (21:20)
[2017-02-10] MEDS: Vancomycin HCl 750 MG in Sodium Chloride 0.9% 250 ML 250 ML IVPB SCH (06:09)
[2017-02-10] MEDS ORDERED: Sodium Chloride 0.9% 10 ML ONE (07:22)
[2017-02-10] MEDS: Enoxaparin Sodium 30 MG/0.3 ML SYRINGE SC SCH (09:16)
[2017-02-10] MEDS: Lactinex Tablet PO SCH ×2 (09:16→20:13)
[2017-02-10] MEDS: Dicyclomine 20 MG TAB PO SCH ×3 (09:17→20:14)
[2017-02-10] MEDS: Lisinopril 10 MG TAB PO SCH (09:17)
[2017-02-10] MEDS: Gabapentin 300 MG CAP PO SCH ×3 (09:17→20:13)
[2017-02-10] MEDS: Potassium Chloride 20 MEQ TAB PO SCH (09:17)
[2017-02-10] MEDS: Furosemide 40 MG TAB PO SCH (09:17)
[2017-02-10] MEDS: Meloxicam 7.5 MG TAB PO SCH (09:17)
[2017-02-10] MEDS: tiZANidine HCl 4 MG TAB PO SCH ×3 (09:18→20:13)
[2017-02-10] MEDS: Bupropion 150 MG XL TAB PO SCH (09:18)
[2017-02-10] MEDS: Mupirocin 2% Ointment 22 GM Tube TOP SCH ×3 (09:18→20:15)
[2017-02-10] MEDS: cycloSPORINE 0.05% Ophthalmic Droperette EA EYE SCH ×2 (09:20→20:16)
[2017-02-10] MEDS: HYDROcodone/Acetaminophen 10/325 mg Tablet PO PRN ×2 (09:22→20:14)
[2017-02-10] MEDS: cefTRIAXone\\ROCEPHIN 2 GM in Sodium Chloride 0.9% 100 ML IVPB SCH (09:24)
--- NOTE | 2017-02-10 10:59 | PRG ---
DATE OF SERVICE: 02/10/2017 SUBJECTIVE: Ms. Cruz is doing well. Denies any complaints, resting comfortably, tolerating her t herapy. OBJECTIVE: VITAL SIGNS: She is afebrile, heart rate 78, respirations 18, oxygen saturation 97%, blood pressure was slightly elevated this morning 162/72. CARDIOVASCULAR: S1, S2 plus. RESPIRATORY: Normal vesicular breath sounds. ABDOMEN: Soft, nontender, bowel sounds heard in all quadrants. EXTREMITIES: Without cyanosis or clubbing. Right leg with external fixator. IMPRESSION: 1. Right knee septic arthritis status post multiple courses of IV antibiotics and now with removal o f hardware and placement of external fixator. 2. Hypertension, fluctuating control. 3. Dyslipidemia. 4. Depression and anxiety. 5. Peripheral neuropathy. 6. Recent bariatric surgery. PLAN: 1. Continue current medications. 2. IV antibiotics. 3. Surgical repair of the right knee on the per Dr. Baptiste. 4. Heart healthy diet. 5. DVT and stress ulcer prophylaxis. 6. Decubitus precautions. 7. Weekly CBC, CRP, sed rate.
[2017-02-10] MEDS: Nicotine 21 MG PATCH TD SCH (14:22)
[2017-02-10] MEDS: Amlodipine 10 MG TAB PO SCH (20:13)
[2017-02-10] MEDS: traZODone HCl 50 MG TAB PO SCH (20:14)
[2017-02-10] MEDS: Atorvastatin Calcium 10 MG TAB PO SCH (20:14)
[2017-02-10] MEDS: ALPRAZolam 0.25 MG TAB PO PRN (22:41)
[2017-02-11 05:46] LABS: Vancomycin, Trough 16.5 ug/mL
[2017-02-11] MEDS: Vancomycin HCl 750 MG in Sodium Chloride 0.9% 250 ML 250 ML IVPB SCH (06:20)
[2017-02-11] MEDS ORDERED: Sodium Chloride 0.9% 20 ML ONE (07:17)
[2017-02-11] MEDS: Lactinex Tablet PO SCH ×2 (08:10→20:16)
[2017-02-11] MEDS: Gabapentin 300 MG CAP PO SCH ×3 (08:10→20:17)
[2017-02-11] MEDS: Meloxicam 7.5 MG TAB PO SCH (08:11)
[2017-02-11] MEDS: Lisinopril 10 MG TAB PO SCH (08:11)
[2017-02-11] MEDS: tiZANidine HCl 4 MG TAB PO SCH ×3 (08:11→20:16)
[2017-02-11] MEDS: Bupropion 150 MG XL TAB PO SCH (08:11)
[2017-02-11] MEDS: Potassium Chloride 20 MEQ TAB PO SCH (08:11)
[2017-02-11] MEDS: Dicyclomine 20 MG TAB PO SCH ×3 (08:12→20:17)
[2017-02-11] MEDS: cefTRIAXone\\ROCEPHIN 2 GM in Sodium Chloride 0.9% 100 ML IVPB SCH (08:12)
[2017-02-11] MEDS: Furosemide 40 MG TAB PO SCH (08:12)
[2017-02-11] MEDS: Enoxaparin Sodium 30 MG/0.3 ML SYRINGE SC SCH (08:12)
[2017-02-11] MEDS: cycloSPORINE 0.05% Ophthalmic Droperette EA EYE SCH ×2 (08:15→20:19)
[2017-02-11] MEDS: Mupirocin 2% Ointment 22 GM Tube TOP SCH ×3 (08:15→20:19)
[2017-02-11] MEDS: Nicotine 21 MG PATCH TD SCH (08:16)
[2017-02-11] MEDS: HYDROcodone/Acetaminophen 10/325 mg Tablet PO PRN ×2 (08:16→13:26)
--- NOTE | 2017-02-11 16:18 | PRG ---
DATE OF SERVICE: 02/11/2017 SUBJECTIVE: Ms. Cruz doing well. Denies any complaints, tolerating her antibiotics. OBJECTIVE: VITAL SIGNS: She is afebrile, heart rate is 83, respirations 17, oxygen saturation 95%, blood pressu re 168/79. CARDIOVASCULAR SYSTEM: S1, S2 plus. RESPIRATORY SYSTEM: Normal vesicular breath sounds. ABDOMEN: Soft, nontender, bowel sounds heard in all quadrants. EXTREMITIES: Without cyanosis or clubbing. Right leg with external fixator. IMPRESSION: 1. Right knee septic arthritis requiring IV antibiotics and removal of hardware and placement of ext ernal fixator. 2. Hypertension, fluctuating control. 3. Depression and anxiety. 4. Dyslipidemia. 5. Status post bariatric surgery. PLAN: 1. Continue IV antibiotics. 2. Nutritional support. 3. DVT and stress ulcer prophylaxis. 4. Decubitus precautions. 5. Physical therapy. 6. Routine laboratory values. 7. She is due for removal of external fixator and replacement of the hardware on 02/17/2017.
[2017-02-11] MEDS: traZODone HCl 50 MG TAB PO SCH (20:16)
[2017-02-11] MEDS: traMADol HCl 50 MG TAB PO PRN (20:16)
[2017-02-11] MEDS: ALPRAZolam 0.25 MG TAB PO PRN (20:16)
[2017-02-11] MEDS: Atorvastatin Calcium 10 MG TAB PO SCH (20:17)
[2017-02-11] MEDS: Acetaminophen 325 MG TAB PO PRN (20:17)
[2017-02-11] MEDS: Amlodipine 10 MG TAB PO SCH (20:18)
[2017-02-12] MEDS: Vancomycin HCl 750 MG in Sodium Chloride 0.9% 250 ML 250 ML IVPB SCH (05:54)
[2017-02-12] MEDS: cefTRIAXone\\ROCEPHIN 2 GM in Sodium Chloride 0.9% 100 ML IVPB SCH (09:23)
[2017-02-12] MEDS: Furosemide 40 MG TAB PO SCH (09:24)
[2017-02-12] MEDS: Lactinex Tablet PO SCH ×2 (09:24→20:22)
[2017-02-12] MEDS: Meloxicam 7.5 MG TAB PO SCH (09:24)
[2017-02-12] MEDS: Lisinopril 10 MG TAB PO SCH (09:24)
[2017-02-12] MEDS: Gabapentin 300 MG CAP PO SCH ×3 (09:24→20:20)
[2017-02-12] MEDS: Nicotine 21 MG PATCH TD SCH (09:25)
[2017-02-12] MEDS: Enoxaparin Sodium 30 MG/0.3 ML SYRINGE SC SCH (09:25)
[2017-02-12] MEDS: Mupirocin 2% Ointment 22 GM Tube TOP SCH ×3 (09:25→20:22)
[2017-02-12] MEDS: tiZANidine HCl 4 MG TAB PO SCH ×3 (09:25→20:20)
[2017-02-12] MEDS: Dicyclomine 20 MG TAB PO SCH ×3 (09:25→20:21)
[2017-02-12] MEDS: Potassium Chloride 20 MEQ TAB PO SCH (09:25)
[2017-02-12] MEDS: Bupropion 150 MG XL TAB PO SCH (09:25)
[2017-02-12] MEDS: cycloSPORINE 0.05% Ophthalmic Droperette EA EYE SCH ×2 (09:26→20:22)
--- NOTE | 2017-02-12 14:37 | PRG ---
DATE OF SERVICE: 02/12/2017 SUBJECTIVE: Ms. Cruz is doing the same. Denies any complaints. Her perineal excoriations are im proving but not better. OBJECTIVE: VITAL SIGNS: She is afebrile, heart rate 75, respirations 12, oxygen saturation 99%, blood pressure is 143/69. CARDIOVASCULAR SYSTEM: S1, S2 plus. RESPIRATORY SYSTEM: Normal vesicular breath sounds. ABDOMEN: Soft, nontender, bowel sounds heard in all quadrants. EXTREMITIES: Without cyanosis or clubbing. IMPRESSION: 1. Right knee septic arthritis, status post removal of hardware and placement of external fixator. 2. Depression and anxiety. 3. Hypertension. 4. Dyslipidemia. 5. Status post bariatric surgery. PLAN: 1. Recheck laboratory values in the morning. 2. Continue perineal care. 3. DVT and stress ulcer prophylaxis. 4. Decubitus precautions. 5. Continue IV antibiotics. 6. Routine laboratory values.
[2017-02-12] MEDS: Nystatin Powder 15 GM BOT TOP PRN (15:13)
[2017-02-12] MEDS: HYDROcodone/Acetaminophen 10/325 mg Tablet PO PRN (18:21)
[2017-02-12] MEDS: Atorvastatin Calcium 10 MG TAB PO SCH (20:20)
[2017-02-12] MEDS: traZODone HCl 50 MG TAB PO SCH (20:20)
[2017-02-12] MEDS: Acetaminophen 325 MG TAB PO PRN (20:20)
[2017-02-12] MEDS: traMADol HCl 50 MG TAB PO PRN (20:20)
[2017-02-12] MEDS: Amlodipine 10 MG TAB PO SCH (20:21)
[2017-02-12] MEDS: ALPRAZolam 0.25 MG TAB PO PRN (20:35)
[2017-02-13] MEDS: HYDROcodone/Acetaminophen 10/325 mg Tablet PO PRN ×2 (01:16→08:14)
[2017-02-13] MEDS: Vancomycin HCl 750 MG in Sodium Chloride 0.9% 250 ML 250 ML IVPB SCH (05:56)
[2017-02-13 06:03] LABS: ALT (SGPT) 35 U/L (8-55); AST (SGOT) 25 U/L (5-34); Albumin 2.9 g/dL (3.4-4.8); Alkaline Phosphatase 64 U/L (40-150); Anion Gap 15 mmol/L (10-20); BUN (Urea Nitrogen) 31 mg/dL (9.8-20.1); Bilirubin, Total 0.1 mg/dL (0.2-1.2); Calc. Creatinine Clearance 46 mL/min (70-130); Calcium 8.8 mg/dL (7.8-10.44); Carbon Dioxide 24 mmol/L (23-31); Chloride 103 mmol/L (98-107); Estimated GFR-MDRD 57; Globulin 2.7 g/dL (2.4-3.5); Glucose 95 mg/dL (83-110); Potassium 4.3 mmol/L (3.5-5.1); Protein, Total 5.6 g/dL (6.0-8.3); Sodium 138 mmol/L (136-145)
[2017-02-13 06:12] LABS: Anisocytosis SLIGHT = 6-15 cells (100X) (0-5/hpf); Band 7 % (5-11); Eosinophils 5 % (0-10); Hemoglobin 9.6 g/dL (12.0-16.0); Hypochromia SLIGHT = 6-15 cells (100X) (0-5/hpf); Lymphocytes 13 % (21-51); MDiff Complete? YES; Mean Corpuscular HGB CONC 31.4 g/dL (32.0-36.0); Mean Corpuscular Hemoglobin 28.5 pg (27.0-31.0); Mean Corpuscular Volume 90.9 fl (81.0-99.0); Mean Platelet Volume 7.9 fL (7.4-10.4); Monocytes 4 % (0-10); Neutrophil 71 % (42-75); PLT Morphology Comment Appears Adequate; Platelet Count 127 thou/uL (130-400); RBC Distribution Width 13.4 % (11.5-14.5); Red Blood Cell (RBC) Count 3.37 mill/uL (4.20-5.40); White Blood Cell (WBC) Count 4.9 thou/uL (4.8-10.8)
[2017-02-13] MEDS ORDERED: Sodium Chloride 0.9% 20 ML ONE (08:04)
[2017-02-13] MEDS: Potassium Chloride 20 MEQ TAB PO SCH (08:13)
[2017-02-13] MEDS: Lactinex Tablet PO SCH ×2 (08:13→21:12)
[2017-02-13] MEDS: Enoxaparin Sodium 30 MG/0.3 ML SYRINGE SC SCH (08:13)
[2017-02-13] MEDS: tiZANidine HCl 4 MG TAB PO SCH ×3 (08:13→21:13)
[2017-02-13] MEDS: Gabapentin 300 MG CAP PO SCH ×3 (08:13→21:12)
[2017-02-13] MEDS: Meloxicam 7.5 MG TAB PO SCH (08:14)
[2017-02-13] MEDS: Furosemide 40 MG TAB PO SCH (08:14)
[2017-02-13] MEDS: Lisinopril 10 MG TAB PO SCH (08:14)
[2017-02-13] MEDS: Dicyclomine 20 MG TAB PO SCH ×3 (08:16→21:13)
[2017-02-13] MEDS: Bupropion 150 MG XL TAB PO SCH (08:16)
[2017-02-13] MEDS: cefTRIAXone\\ROCEPHIN 2 GM in Sodium Chloride 0.9% 100 ML IVPB SCH (08:16)
[2017-02-13] MEDS: Nicotine 21 MG PATCH TD SCH (08:18)
[2017-02-13] MEDS: Mupirocin 2% Ointment 22 GM Tube TOP SCH ×3 (08:18→21:14)
[2017-02-13] MEDS: cycloSPORINE 0.05% Ophthalmic Droperette EA EYE SCH ×2 (08:18→21:14)
--- NOTE | 2017-02-13 13:19 | PRG ---
DATE OF SERVICE: 02/13/2017 SUBJECTIVE: Ms. Kavitha Cruz is doing well. Denies any complaints, resting comfortably, tolerati ng her medications. OBJECTIVE: VITAL SIGNS: She is afebrile, heart rate is 79, respirations 20, oxygen saturation 95%, blood pressu re is elevated 164/72, it was 147/79 last night, and 118/50 last evening. CARDIOVASCULAR: S1, S2 plus. RESPIRATORY: Normal vesicular breath sounds. ABDOMEN: Soft, nontender, bowel sounds heard in all quadrants. EXTREMITIES: Right leg with an external fixator. LABORATORY VALUES: White count is 4.9, H&H is 9.6 and 30.6 with a sed rate of 66. Chemistry shows a sodium 138, potassium 4.3, BUN and creatinine is 31 and 0.95 with a CRP of 0.5. IMPRESSION: 1. Right knee septic arthritis, status post removal of hardware and placement of external fixator an d continue on IV antibiotics. 2. Hypertension, fluctuating control. 3. Dyslipidemia. 4. Anxiety and depression. 5. History of bariatric surgery. PLAN: 1. Continue current medications. 2. She is scheduled for surgery on 02/17/2017 and I think they are going to re-implant the hardware and remove the external fixator, she may come back here for therapy. 3. Finish antibiotics on the . 4. Continue to monitor blood pressure and adjust medications. 5. Physical therapy. 6. Wound care. 7. Routine laboratory values.
[2017-02-13] MEDS: ALPRAZolam 0.25 MG TAB PO PRN (15:05)
[2017-02-13] MEDS: traZODone HCl 50 MG TAB PO SCH (21:13)
[2017-02-13] MEDS: Atorvastatin Calcium 10 MG TAB PO SCH (21:13)
[2017-02-13] MEDS: Amlodipine 10 MG TAB PO SCH (21:13)
[2017-02-14] MEDS: HYDROcodone/Acetaminophen 10/325 mg Tablet PO PRN ×3 (02:47→21:25)
[2017-02-14] MEDS: Vancomycin HCl 750 MG in Sodium Chloride 0.9% 250 ML 250 ML IVPB SCH (05:40)
[2017-02-14 06:02] LABS: Vancomycin, Trough 17.8 ug/mL
[2017-02-14] MEDS ORDERED: Sodium Chloride 0.9% 20 ML ONE (08:10)
[2017-02-14] MEDS: Nicotine 21 MG PATCH TD SCH (08:20)
[2017-02-14] MEDS: Enoxaparin Sodium 30 MG/0.3 ML SYRINGE SC SCH (08:20)
[2017-02-14] MEDS: Bupropion 150 MG XL TAB PO SCH (08:23)
[2017-02-14] MEDS: Mupirocin 2% Ointment 22 GM Tube TOP SCH ×3 (08:23→21:28)
[2017-02-14] MEDS: Gabapentin 300 MG CAP PO SCH ×3 (08:23→21:26)
[2017-02-14] MEDS: Lisinopril 10 MG TAB PO SCH (08:24)
[2017-02-14] MEDS: Furosemide 40 MG TAB PO SCH (08:24)
[2017-02-14] MEDS: Meloxicam 7.5 MG TAB PO SCH (08:24)
[2017-02-14] MEDS: tiZANidine HCl 4 MG TAB PO SCH ×3 (08:24→21:28)
[2017-02-14] MEDS: Dicyclomine 20 MG TAB PO SCH ×3 (08:24→21:26)
[2017-02-14] MEDS: Potassium Chloride 20 MEQ TAB PO SCH (08:24)
[2017-02-14] MEDS: cefTRIAXone\\ROCEPHIN 2 GM in Sodium Chloride 0.9% 100 ML IVPB SCH (08:25)
[2017-02-14] MEDS: Lactinex Tablet PO SCH ×2 (08:26→21:26)
[2017-02-14] MEDS: cycloSPORINE 0.05% Ophthalmic Droperette EA EYE SCH ×2 (08:26→20:19)
--- NOTE | 2017-02-14 12:57 | PRG ---
DATE OF SERVICE: 02/14/2017 BRIEF HISTORY: Ms. Cruz is doing well. Denies any complaints, resting comfortably. She supposed ly needs to be at [facility] on Monday morning at 8:30. She will be made n.p.o. after midnight . Current medication list has been faxed to [facility] an d the doctors, they will review it and apparently will call back to give instructions to the nurses h ere as to what medicine she needs to continue and what medicine she needs to not take the morning of surgery. She denies any concerns and I discussed with nursing as well. OBJECTIVE: VITAL SIGNS: She is afebrile, heart rate 74, respirations 18, oxygen saturation 96%, blood pressure 135/87. CARDIOVASCULAR SYSTEM: S1, S2 plus. RESPIRATORY SYSTEM: Normal vesicular breath sounds. ABDOMEN: Soft, nontender, bowel sounds heard in all quadrants. EXTREMITIES: Without cyanosis or clubbing. Right leg with external fixator. IMPRESSION: 1. Right knee septic arthritis. 2. Gastroesophageal reflux disease. 3. Hypertension. 4. Dyslipidemia. 5. Depression, anxiety. PLAN: 1. Continue current medications. 2. Nutritional support. 3. DVT and stress ulcer prophylaxis. 4. Decubitus precautions. 5. Physical therapy. 6. Weekly CBC, CRP, sed rate. 7. Heart healthy diet. 8. Discussed with patient in detail and all questions answered.
[2017-02-14] MEDS: ALPRAZolam 0.25 MG TAB PO PRN ×2 (14:49→21:25)
[2017-02-14] MEDS: traZODone HCl 50 MG TAB PO SCH (21:26)
[2017-02-14] MEDS: Amlodipine 10 MG TAB PO SCH (21:26)
[2017-02-14] MEDS: Atorvastatin Calcium 10 MG TAB PO SCH (21:26)
[2017-02-14] MEDS: Nystatin Powder 15 GM BOT TOP PRN (21:27)
[2017-02-15] MEDS: Vancomycin HCl 750 MG in Sodium Chloride 0.9% 250 ML 250 ML IVPB SCH (05:06)
[2017-02-15] MEDS: cefTRIAXone\\ROCEPHIN 2 GM in Sodium Chloride 0.9% 100 ML IVPB SCH (08:21)
[2017-02-15] MEDS: Enoxaparin Sodium 30 MG/0.3 ML SYRINGE SC SCH (08:22)
[2017-02-15] MEDS: Nicotine 21 MG PATCH TD SCH (08:22)
[2017-02-15] MEDS: Lisinopril 10 MG TAB PO SCH (08:22)
[2017-02-15] MEDS: Dicyclomine 20 MG TAB PO SCH ×3 (08:23→20:05)
[2017-02-15] MEDS: Potassium Chloride 20 MEQ TAB PO SCH (08:23)
[2017-02-15] MEDS: Meloxicam 7.5 MG TAB PO SCH (08:23)
[2017-02-15] MEDS: Bupropion 150 MG XL TAB PO SCH (08:23)
[2017-02-15] MEDS: Gabapentin 300 MG CAP PO SCH ×3 (08:23→20:05)
[2017-02-15] MEDS: Furosemide 40 MG TAB PO SCH (08:23)
[2017-02-15] MEDS: Lactinex Tablet PO SCH ×2 (08:23→20:06)
[2017-02-15] MEDS: HYDROcodone/Acetaminophen 10/325 mg Tablet PO PRN ×3 (08:24→20:02)
[2017-02-15] MEDS: cycloSPORINE 0.05% Ophthalmic Droperette EA EYE SCH ×2 (08:24→20:05)
[2017-02-15] MEDS: tiZANidine HCl 4 MG TAB PO SCH ×3 (11:28→22:14)
[2017-02-15] MEDS: Mupirocin 2% Ointment 22 GM Tube TOP SCH ×3 (11:29→22:14)
[2017-02-15] MEDS: ALPRAZolam 0.25 MG TAB PO PRN ×2 (15:51→22:14)
[2017-02-15] MEDS ORDERED: Sodium Chloride 0.9% 20 ML ONE (19:39)
[2017-02-15] MEDS: Atorvastatin Calcium 10 MG TAB PO SCH (20:05)
[2017-02-15] MEDS: Amlodipine 10 MG TAB PO SCH (20:06)
[2017-02-15] MEDS: traZODone HCl 50 MG TAB PO SCH (20:06)
[2017-02-16] MEDS: Vancomycin HCl 750 MG in Sodium Chloride 0.9% 250 ML 250 ML IVPB SCH (05:17)
[2017-02-16] MEDS ORDERED: Sodium Chloride 0.9% 10 ML ONE (05:28)
[2017-02-16] MEDS ORDERED: cefTRIAXone\\ROCEPHIN 2 GM VIAL ONE (08:23)
[2017-02-16] MEDS: Mupirocin 2% Ointment 22 GM Tube TOP SCH ×3 (08:46→21:08)
[2017-02-16] MEDS: Gabapentin 300 MG CAP PO SCH ×3 (08:47→21:10)
[2017-02-16] MEDS: Nicotine 21 MG PATCH TD SCH (08:47)
[2017-02-16] MEDS: Enoxaparin Sodium 30 MG/0.3 ML SYRINGE SC SCH (08:47)
[2017-02-16] MEDS: Meloxicam 7.5 MG TAB PO SCH (08:48)
[2017-02-16] MEDS: Lactinex Tablet PO SCH ×2 (08:48→21:10)
[2017-02-16] MEDS: Lisinopril 10 MG TAB PO SCH (08:48)
[2017-02-16] MEDS: Furosemide 40 MG TAB PO SCH (08:48)
[2017-02-16] MEDS: Bupropion 150 MG XL TAB PO SCH (08:48)
[2017-02-16] MEDS: tiZANidine HCl 4 MG TAB PO SCH ×3 (08:48→21:08)
[2017-02-16] MEDS: Dicyclomine 20 MG TAB PO SCH ×3 (08:49→21:10)
[2017-02-16] MEDS: cefTRIAXone\\ROCEPHIN 2 GM in Sodium Chloride 0.9% 100 ML IVPB SCH (08:49)
[2017-02-16] MEDS: Potassium Chloride 20 MEQ TAB PO SCH (08:49)
[2017-02-16] MEDS: cycloSPORINE 0.05% Ophthalmic Droperette EA EYE SCH ×2 (08:51→21:08)
[2017-02-16] MEDS: HYDROcodone/Acetaminophen 10/325 mg Tablet PO PRN ×2 (12:54→19:26)
--- NOTE | 2017-02-16 13:13 | PRG ---
DATE OF SERVICE: 02/16/2017 SUBJECTIVE: Ms. Kavitha Cruz is doing well. Denies any complaints, resting comfortably. She is excited about going to the hospital tomorrow to get her knee replaced. No concerns or questions. Di scussed with nursing and they are waiting to hear from the operating room and her surgeon/mathematics lecturer to see what medicine she can take tomorrow morning and what needs to be held. She is going to be n. p.o. after midnight. OBJECTIVE: VITAL SIGNS: She is afebrile, heart rate 71, respirations 18, oxygen saturation 98%, blood pressure 119/76. CARDIOVASCULAR: S1, S2 plus. RESPIRATORY: Normal vesicular breath sounds. ABDOMEN: Soft, nontender, bowel sounds heard in all quadrants. EXTREMITIES: Right leg with an external immobilizer. No neurovascular compromise. CENTRAL NERVOUS SYSTEM: Generalized weakness. IMPRESSION: 1. Right knee septic arthritis status post removal of hardware and placement of external fixator and here for intravenous antibiotics. 2. Hypertension, well controlled. 3. Dyslipidemia. 4. Peripheral neuropathy. 5. Depression and anxiety. 6. Status post bariatric surgery. 7. Chronic pain. PLAN: 1. Continue current medications. 2. Transfer to [facility] tomorrow for replacement of the right knee hardware. 3. She most likely will come back here for therapy. 4. Continue current medications. 5. Stop antibiotics after today. 6. Deep venous thrombosis and stress ulcer prophylaxis. 7. Decubitus precautions. 8. Routine laboratory values. 9. No family at the bedside. 10. Discussed with patient in detail and all questions answered.
--- NOTE | 2017-02-16 15:38 | RAD ---
RIGHT SHOULDER THREE VIEWS: 02/16/17 HISTORY: Severe shoulder pain. 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 There is dislocation. The humeral component is dislocat ed superiorly. IMPRESSION: Dislocation. POS: JOSE
[2017-02-16] MEDS: ALPRAZolam 0.25 MG TAB PO PRN ×2 (19:26→21:11)
[2017-02-16] MEDS: traZODone HCl 50 MG TAB PO SCH (21:10)
[2017-02-16] MEDS: Atorvastatin Calcium 10 MG TAB PO SCH (21:11)
[2017-02-16] MEDS: Amlodipine 10 MG TAB PO SCH (21:11)
[2017-02-17 07:42] VITALS: BP 152/65; TEMP 97.1
[2017-02-17] MEDS: Gabapentin 300 MG CAP PO SCH (08:57)
[2017-02-17] MEDS: Lactinex Tablet PO SCH (08:57)
[2017-02-17] MEDS: Dicyclomine 20 MG TAB PO SCH (08:57)
[2017-02-17] MEDS: Enoxaparin Sodium 30 MG/0.3 ML SYRINGE SC SCH (08:57)
[2017-02-17] MEDS: Furosemide 40 MG TAB PO SCH (08:57)
[2017-02-17] MEDS: Bupropion 150 MG XL TAB PO SCH (08:57)
[2017-02-17] MEDS: Potassium Chloride 20 MEQ TAB PO SCH (08:57)
[2017-02-17] MEDS: Lisinopril 10 MG TAB PO SCH (08:58)
[2017-02-17] MEDS: Nicotine 21 MG PATCH TD SCH (08:58)
[2017-02-17] MEDS: tiZANidine HCl 4 MG TAB PO SCH (08:58)
[2017-02-17] MEDS: Meloxicam 7.5 MG TAB PO SCH (08:58)
[2017-02-17] MEDS: cycloSPORINE 0.05% Ophthalmic Droperette EA EYE SCH (08:58)
[2017-02-17] MEDS: Mupirocin 2% Ointment 22 GM Tube TOP SCH (08:58)
--- NOTE | 2017-02-18 19:26 | DIS ---
DATE OF ADMISSION: 01/18/2017 DATE OF DISCHARGE: 02/17/2017 PRINCIPAL DIAGNOSIS: Right knee septic arthritis status post removal of hardware and placement of ex ternal fixator for long-term IV antibiotics. SECONDARY DIAGNOSES: 1. Dyslipidemia. 2. Coronary artery disease. 3. Degenerative joint disease. 4. Status post bariatric surgery. 5. Hypertension. 6. Peripheral neuropathy. 7. Depression and anxiety. 8. Gastroesophageal reflux disease. COMPLICATIONS: None. OTHER ISSUES: The patient did develop left shoulder dislocation the day prior to her discharge, unkn own mechanism, no witnessed fall or any injuries. HOSPITAL COURSE: The patient was admitted on 01/18/2017 for long-term IV antibiotic therapy. She calderon s done well with IV antibiotics. Her sed rate and CRP have consistently been going down. She was no ticed to have high blood pressure and needed to be started on amlodipine and eventually lisinopril to keep it under control. She had a follow up with Dr. Baptiste where she was pleased with the progress an d she is scheduled to go back on 02/17/2017 for replacement of the hardware. The day prior to transf er to [facility], patient started apparently complaining of significant left shoulder pain and I ordered an x-ray and x-ray shows full shoulder prosthesis with dislocation of the humeral component. I disc ussed with Dr. Baptiste who recommended that she would be placed in a shoulder sling and that he would tr y to reduce it while she is under anesthesia in the operating room and if he cannot, he will open her up and fix it. He did not advise any transfer to ER to reduce right away. Patient did well, but sh e did have episodes of confusion. She has been tolerating her diet and no other issues. PHYSICAL EXAMINATION: VITAL SIGNS: On the day of discharge, she is afebrile, heart rate is 77, respirations 20, oxygen sat uration 98%, and blood pressure 152/65. CARDIOVASCULAR SYSTEM: S1, S2 plus. RESPIRATORY SYSTEM: Normal vesicular breath sounds. ABDOMEN: Soft, nontender, bowel sounds heard in all quadrants. EXTREMITIES: Without cyanosis or clubbing. Right leg in an external fixator. CENTRAL NERVOUS SYSTEM: Grossly nonfocal. DISCHARGE MEDICATIONS: [place] 5/325 mg one tab q.4 p.r.n., Floranex that will be discontinued since h er antibiotics are finished, Xanax 0.25 mg b.i.d. p.r.n., Norvasc 10 mg at night, Lipitor 10 mg daily , Wellbutrin 300 mg daily, Bentyl 20 mg t.i.d., Lasix 40 mg daily, Neurontin 600 mg t.i.d., lisinopri l 10 mg in the morning, meloxicam 7.5 mg daily, Protonix 40 mg daily, nystatin powder to her groin ar ea b.i.d., and trazodone 50 mg at night. She is being transferred to [facility] under the care of Dr. Baptiste. DIET: Heart healthy diet. ACTIVITY: Per Dr. Baptiste, patient has been given all instructions. No family at the bedside. Total time spent on this discharge 35 minutes.
== END 2017-02-17 08:35 | disposition short-term general hospital (02) | DRG 949 ==
LOC: NAV ACUTE 15:04
PROVIDERS: ADMIT Internal Medicine; ATTEND Internal Medicine
DX: T84.53XD Infection and inflammatory reaction due to internal right knee prosthesis, subsequent encounter (principal); M00.861 Arthritis due to other bacteria, right knee; G62.9 Polyneuropathy, unspecified; N18.3 Chronic kidney disease, stage 3 (moderate); I25.10 Atherosclerotic heart disease of native coronary artery without angina pectoris; I12.9 Hypertensive chronic kidney disease with stage 1 through stage 4 chronic kidney disease, or unspecified chronic kidney disease; B35.6 Tinea cruris; E78.5 Hyperlipidemia, unspecified; F41.8 Other specified anxiety disorders; Y83.8 Other surgical procedures as the cause of abnormal reaction of the patient, or of later complication, without mention of misadventure at the time of the procedure; Z91.19 Patient's noncompliance with other medical treatment and regimen; Z98.84 Bariatric surgery status; G89.29 Other chronic pain; K21.9 Gastro-esophageal reflux disease without esophagitis; M19.90 Unspecified osteoarthritis, unspecified site
CPT/HCPCS: 36415; 80053; 80202; 85007; 85025; 85027; 85652; 86140; 87324; 87449; A4216; C1751; G8978-GP-CL; G8979-GP-CJ; J0696; J1650; J3370; J7050

== ENCOUNTER 2017-02-21 16:45 | Inpatient (IN) | payer MEDICARE, OTHER ==
[2017-02-21] MEDS ORDERED: Acetaminophen 325 MG TAB PO PRN (19:58)
[2017-02-21] MEDS ORDERED: Milk Of Magnesia 30 ML UDCUP PO PRN (20:09)
[2017-02-21] MEDS: Doxycycline 100 MG CAP PO SCH (20:41)
[2017-02-21] MEDS: cycloSPORINE 0.05% Ophthalmic Droperette EA EYE SCH (20:41)
[2017-02-21] MEDS: Amlodipine 10 MG TAB PO SCH (20:41)
[2017-02-21] MEDS: Nicotine 21 MG PATCH TD SCH (20:41)
[2017-02-21] MEDS: Gabapentin 300 MG CAP PO SCH (20:41)
[2017-02-21] MEDS: Dicyclomine 20 MG TAB PO SCH (20:41)
[2017-02-21] MEDS: tiZANidine HCl 4 MG TAB PO SCH (20:42)
[2017-02-21] MEDS: traZODone HCl 50 MG TAB PO SCH (20:42)
[2017-02-21] MEDS: Saccharomyces boulardii 250 MG CAP PO SCH (20:42)
[2017-02-21] MEDS ORDERED: Pravastatin Sodium 20 MG TAB PO SCH (21:00)
[2017-02-21 23:44] VITALS: BMI 19.1
[2017-02-22 06:00] LABS: #Basophils 0.1 thou/uL (0.0-0.2); #Eosinphils 0.2 thou/uL (0.0-0.7); #Lymphocytes 0.5 thou/uL (1.20-3.40); #Monocytes 0.4 thou/uL (0.11-0.59); #Neutrophils 3.4 thou/uL (1.40-6.50); %Basophils 1.2 % (0.0-1.0); %Eosinophils 4.3 % (0.0-10.0); %Monocytes 9.3 % (0.0-10.0); %Neutrophils 75.2 % (42.0-75.0); Hemoglobin 11.7 g/dL (12.0-16.0); Mean Corpuscular Hemoglobin 28.2 pg (27.0-31.0); Mean Corpuscular Volume 88.3 fl (81.0-99.0); Mean Platelet Volume 9.5 fL (7.4-10.4); Platelet Count 194 thou/uL (130-400); RBC Distribution Width 12.8 % (11.5-14.5); Red Blood Cell (RBC) Count 4.15 mill/uL (4.20-5.40); White Blood Cell (WBC) Count 4.5 thou/uL (4.8-10.8)
[2017-02-22 06:01] LABS: Anion Gap 13 mmol/L (10-20); BUN (Urea Nitrogen) 16 mg/dL (9.8-20.1); Calc. Creatinine Clearance 52 mL/min (70-130); Calcium 8.7 mg/dL (7.8-10.44); Carbon Dioxide 25 mmol/L (23-31); Chloride 108 mmol/L (98-107); Estimated GFR-MDRD 71; Glucose 95 mg/dL (83-110); Potassium 3.2 mmol/L (3.5-5.1); Sodium 143 mmol/L (136-145)
[2017-02-22] MEDS: Dicyclomine 20 MG TAB PO SCH ×3 (08:27→21:19)
[2017-02-22] MEDS: Bupropion 150 MG XL TAB PO SCH (08:27)
[2017-02-22] MEDS: Fluconazole 100 MG TAB PO SCH (08:28)
[2017-02-22] MEDS: Enoxaparin Sodium 30 MG/0.3 ML SYRINGE SC SCH (08:28)
[2017-02-22] MEDS: Doxycycline 100 MG CAP PO SCH ×2 (08:28→21:18)
[2017-02-22] MEDS: Furosemide 40 MG TAB PO SCH (08:28)
[2017-02-22] MEDS: Gabapentin 300 MG CAP PO SCH ×3 (08:28→21:18)
[2017-02-22] MEDS: Lisinopril 10 MG TAB PO SCH (08:29)
[2017-02-22] MEDS: Meloxicam 7.5 MG TAB PO SCH (08:29)
[2017-02-22] MEDS: Potassium Chloride 20 MEQ TAB PO SCH (08:29)
[2017-02-22] MEDS: cycloSPORINE 0.05% Ophthalmic Droperette EA EYE SCH ×2 (08:30→21:18)
[2017-02-22] MEDS: Saccharomyces boulardii 250 MG CAP PO SCH ×2 (08:30→21:17)
[2017-02-22] MEDS: tiZANidine HCl 4 MG TAB PO SCH ×3 (08:31→21:19)
[2017-02-22] MEDS: HYDROcodone/Acetaminophen 10/325 mg Tablet PO PRN (08:31)
[2017-02-22] MEDS: traMADol HCl 50 MG TAB PO PRN (14:51)
[2017-02-22] MEDS: ALPRAZolam 0.25 MG TAB PO PRN ×2 (14:51→21:19)
[2017-02-22] MEDS: Nicotine 21 MG PATCH TD SCH (20:03)
[2017-02-22] MEDS: Amlodipine 10 MG TAB PO SCH (21:19)
[2017-02-22] MEDS: Atorvastatin Calcium 10 MG TAB PO SCH (21:19)
[2017-02-22] MEDS: traZODone HCl 50 MG TAB PO SCH (21:19)
--- NOTE | 2017-02-23 03:56 | HP ---
DATE OF ADMISSION: 02/21/2017 HISTORY OF PRESENT ILLNESS: The patient is a 76-year-old white female, who recently was in the [facility] for infection of right total knee with a washout and placement of beads and no further need for a ntibiotics other than chronic doxycycline, who has also had dislocation of her right shoulder requiri ng surgical replacement and then admitted back to the skilled unit for physical therapy. PAST MEDICAL HISTORY: Remarkable for a longstanding history of coronary artery disease, status post catheterization; left shoulder replacement; right shoulder replacement; gastric bypass; pyloroplasty. Medical history is positive for depression and hyperlipidemia. SOCIAL HISTORY: She is a former smoker. She is a [employer]. Lives in a custodial. MEDICATIONS: At this time include amlodipine 10 mg nightly, atorvastatin 10 nightly, bupropion 300 m g daily, dicyclomine 20 mg 3 times daily, doxycycline 100 mg twice a day, fluconazole 100 mg daily, f urosemide 40 daily, gabapentin 600 three times daily, lisinopril 10 daily, Mobic 7.5 daily, Protonix 40 daily, potassium 20 mEq daily, pravastatin 40 mg nightly, sertraline 100 mg daily, tizanidine 4 mg 3 times daily, tramadol 100 mg 4 times daily. REVIEW OF SYSTEMS: HEENT: The patient denies headaches, dizziness, change in vision or hearing, margret rseness, or dysphagia. Pulmonary: Denies cough, sputum production, pneumonia, asthma, tuberculosis. Cardiovascular: Denies chest pain, orthopnea, paroxysmal nocturnal dyspnea, or palpitation. Gastr ointestinal: Denies nausea, vomiting, diarrhea, constipation, abdominal pain. Genitourinary: Denie s dysuria, hematuria, nocturia. Musculoskeletal: She has pain in her right shoulder, immobilizer in place. Neurologic: Denies localized numbness, weakness of her extremities. Musculoskeletal: Does complain of pain in her right knee. PHYSICAL EXAMINATION: GENERAL: The patient is an elderly white female in no acute distress, oriented x3, and cooperative. VITAL SIGNS: Showed her to have blood pressure 137/74, respiratory rate 20, O2 sats 96%, pulse 70, a febrile. HEENT: Pupils are equal, round, and reactive to light and accommodation. Sclerae are anicteric. Co njunctivae are pale. Oral mucous membranes are well hydrated. NECK: Supple. No nodes or masses. JVP is not elevated. LUNGS: Clear. CARDIAC: Regular rhythm. No gallops or murmurs. ABDOMEN: Soft, nontender with no masses or organomegaly. SKIN/EXTREMITIES: Right leg, tenderness and swelling of the knee, improved range of motion. Right s houlder with shoulder immobilizer. NEUROLOGIC: Intact. LABORATORY AND X-RAY FINDINGS: White count 4500, hematocrit 36, hemoglobin 11. Sodium 143, potassiu m 3.2, chloride 108, bicarbonate 25, BUN 16, creatinine 0.7, glucose 95. ASSESSMENT AND PLAN: 1. A 76-year-old white female with multiple medical problems, who presents with recurrent dislocatio n of right shoulder, now reduced with the immobilizer in place; and with recent right prosthetic knee infection, now on oral doxycycline chronically and needs physical therapy in both joints. 2. She also has a history of a Barbara urinary tract infection, on Diflucan for 10 days, appears to be resolving. 3. History of nonobstructive coronary disease, stable. 4. History of hyperlipidemia, stable. 5. Depression, stable.
[2017-02-23] MEDS: Enoxaparin Sodium 30 MG/0.3 ML SYRINGE SC SCH (09:26)
[2017-02-23] MEDS: Dicyclomine 20 MG TAB PO SCH ×3 (09:27→21:16)
[2017-02-23] MEDS: Potassium Chloride 20 MEQ TAB PO SCH (09:27)
[2017-02-23] MEDS: Saccharomyces boulardii 250 MG CAP PO SCH ×2 (09:27→21:13)
[2017-02-23] MEDS: Meloxicam 7.5 MG TAB PO SCH (09:27)
[2017-02-23] MEDS: Bupropion 150 MG XL TAB PO SCH (09:28)
[2017-02-23] MEDS: tiZANidine HCl 4 MG TAB PO SCH ×3 (09:28→21:12)
[2017-02-23] MEDS: Lisinopril 10 MG TAB PO SCH (09:28)
[2017-02-23] MEDS: Gabapentin 300 MG CAP PO SCH ×3 (09:28→21:12)
[2017-02-23] MEDS: Doxycycline 100 MG CAP PO SCH ×2 (09:29→21:14)
[2017-02-23] MEDS: Fluconazole 100 MG TAB PO SCH (09:30)
[2017-02-23] MEDS: Furosemide 40 MG TAB PO SCH (09:30)
[2017-02-23] MEDS: cycloSPORINE 0.05% Ophthalmic Droperette EA EYE SCH ×2 (09:30→21:15)
--- NOTE | 2017-02-23 20:17 | PRG ---
DATE OF SERVICE: 02/23/2017 SUBJECTIVE: The patient feels well, cooperating with therapy with no complaints of chest pain, short ness of breath, decreasing right shoulder pain, status post reduction of dislocation, and minimal rig ht leg pain but still unable to bear weight with no need for binders or immobilizer. OBJECTIVE: VITAL SIGNS: Show a temperature of 97, pulse 75, blood pressure 130/62, respirations 18, O2 sats 98% . ASSESSMENT: Physical therapy today, the patient with minimal assist to transfer, is able to ambulate with a wheelchair. PLAN: 1. Continue PT, OT. 2. Continue pain relief as needed. 3. Continue to monitor for signs of recurrent angina.
[2017-02-23] MEDS: Nicotine 21 MG PATCH TD SCH (21:12)
[2017-02-23] MEDS: Atorvastatin Calcium 10 MG TAB PO SCH (21:12)
[2017-02-23] MEDS: traZODone HCl 50 MG TAB PO SCH (21:13)
[2017-02-23] MEDS: Amlodipine 10 MG TAB PO SCH (21:14)
[2017-02-24] MEDS: Enoxaparin Sodium 30 MG/0.3 ML SYRINGE SC SCH (08:29)
[2017-02-24] MEDS: HYDROcodone/Acetaminophen 10/325 mg Tablet PO PRN (08:29)
[2017-02-24] MEDS: Potassium Chloride 20 MEQ TAB PO SCH (08:30)
[2017-02-24] MEDS: Lisinopril 10 MG TAB PO SCH (08:30)
[2017-02-24] MEDS: Dicyclomine 20 MG TAB PO SCH ×3 (08:31→20:51)
[2017-02-24] MEDS: Doxycycline 100 MG CAP PO SCH ×2 (08:32→20:54)
[2017-02-24] MEDS: Saccharomyces boulardii 250 MG CAP PO SCH ×2 (08:32→20:51)
[2017-02-24] MEDS: Gabapentin 300 MG CAP PO SCH ×3 (08:32→20:51)
[2017-02-24] MEDS: tiZANidine HCl 4 MG TAB PO SCH ×3 (08:32→20:52)
[2017-02-24] MEDS: Meloxicam 7.5 MG TAB PO SCH (08:32)
[2017-02-24] MEDS: Bupropion 150 MG XL TAB PO SCH (08:32)
[2017-02-24] MEDS: cycloSPORINE 0.05% Ophthalmic Droperette EA EYE SCH ×2 (08:33→20:54)
[2017-02-24] MEDS: Furosemide 40 MG TAB PO SCH (08:33)
[2017-02-24] MEDS: Fluconazole 100 MG TAB PO SCH (08:33)
[2017-02-24] MEDS: traZODone HCl 50 MG TAB PO SCH (20:51)
[2017-02-24] MEDS: ALPRAZolam 0.25 MG TAB PO PRN (20:52)
[2017-02-24] MEDS: Atorvastatin Calcium 10 MG TAB PO SCH (20:52)
[2017-02-24] MEDS: Amlodipine 10 MG TAB PO SCH (20:52)
[2017-02-24] MEDS: Nicotine 21 MG PATCH TD SCH (20:54)
[2017-02-25] MEDS: Enoxaparin Sodium 30 MG/0.3 ML SYRINGE SC SCH (09:24)
[2017-02-25] MEDS: Dicyclomine 20 MG TAB PO SCH ×3 (09:25→21:04)
[2017-02-25] MEDS: Gabapentin 300 MG CAP PO SCH ×3 (09:25→21:01)
[2017-02-25] MEDS: Meloxicam 7.5 MG TAB PO SCH (09:25)
[2017-02-25] MEDS: Saccharomyces boulardii 250 MG CAP PO SCH ×2 (09:25→21:02)
[2017-02-25] MEDS: Doxycycline 100 MG CAP PO SCH ×2 (09:26→21:03)
[2017-02-25] MEDS: Furosemide 40 MG TAB PO SCH (09:26)
[2017-02-25] MEDS: Bupropion 150 MG XL TAB PO SCH (09:26)
[2017-02-25] MEDS: Potassium Chloride 20 MEQ TAB PO SCH (09:26)
[2017-02-25] MEDS: Fluconazole 100 MG TAB PO SCH (09:26)
[2017-02-25] MEDS: Lisinopril 10 MG TAB PO SCH (09:26)
[2017-02-25] MEDS: cycloSPORINE 0.05% Ophthalmic Droperette EA EYE SCH ×2 (09:27→21:04)
[2017-02-25] MEDS: tiZANidine HCl 4 MG TAB PO SCH ×3 (09:27→21:03)
[2017-02-25] MEDS: HYDROcodone/Acetaminophen 10/325 mg Tablet PO PRN (14:59)
[2017-02-25] MEDS: Amlodipine 10 MG TAB PO SCH (21:02)
[2017-02-25] MEDS: Atorvastatin Calcium 10 MG TAB PO SCH (21:03)
[2017-02-25] MEDS: Nicotine 21 MG PATCH TD SCH (21:03)
[2017-02-25] MEDS: traZODone HCl 50 MG TAB PO SCH (21:05)
--- NOTE | 2017-02-25 21:18 | PRG ---
DATE OF SERVICE: 02/25/2017 DATE OF ADMISSION: 02/21/2017 HISTORY OF PRESENT ILLNESS: Ms. Cruz is a very pleasant 76-year-old white female recently release d. Antibiotic beads were placed. The patient has been doing very well on chronic doxycycline. Unfo rtunately, she dislocated her right shoulder and had to have surgical repair. She was eventually sta bilized and transferred to the skilled unit for physical therapy and occupational therapy. The patient states she is doing very well and she has no complaints. Her pain is actually much less and she is eating well and not constipated. PHYSICAL EXAMINATION: VITAL SIGNS: Reveal blood pressure this morning 153/67, this evening 91/47; pulse 64-70, respiration s 17-24, O2 sat 97%-98%. T-max is 97.1. GENERAL: This is a well-developed, well-nourished, pleasant white female in no apparent distress. HEENT: Reveals normocephalic, nontraumatic cranium. Pupils are equally round and reactive. Extraoc ular movements intact. Nose and throat are slightly dry. NECK: Supple, without masses, nodes or bruits. CHEST: Clear to auscultation. No rales, rhonchi or wheezes are heard. HEART: Reveals a regular rate and rhythm without murmurs, gallops or rubs. ABDOMEN: Soft, nontender, without organomegaly, normal bowel sounds are noted. GENITOURINARY: Deferred. EXTREMITIES: Right leg reveals some tenderness and swelling in the knee, which is somewhat better th an it used to be. Right shoulder is in a shoulder immobilizer. NEUROLOGIC: She is grossly intact. ASSESSMENT: 1. Status post dislocated right shoulder now reduced with immobilizer. 2. Recent right prosthetic knee infection, presently on oral doxycycline. 3. Urinary tract infection with yeast. 4. Nonobstructive coronary artery disease, stable. 5. Hyperlipidemia. 6. Generalized weakness. 7. Depression, stable. PLAN: 1. Stress ulcer prophylaxis. 2. Continue present antibiotics. 3. Continue Diflucan. 4. Continue immobilizer. 5. Decubitus precautions. 6. Deep venous thrombosis prophylaxis. 7. Physical therapy and occupational therapy.
[2017-02-26] MEDS: Enoxaparin Sodium 30 MG/0.3 ML SYRINGE SC SCH (09:04)
[2017-02-26] MEDS: Meloxicam 7.5 MG TAB PO SCH (09:04)
[2017-02-26] MEDS: Doxycycline 100 MG CAP PO SCH ×2 (09:04→21:16)
[2017-02-26] MEDS: Saccharomyces boulardii 250 MG CAP PO SCH ×2 (09:04→21:16)
[2017-02-26] MEDS: Bupropion 150 MG XL TAB PO SCH (09:04)
[2017-02-26] MEDS: Furosemide 40 MG TAB PO SCH (09:05)
[2017-02-26] MEDS: Gabapentin 300 MG CAP PO SCH ×3 (09:05→21:16)
[2017-02-26] MEDS: Fluconazole 100 MG TAB PO SCH (09:05)
[2017-02-26] MEDS: tiZANidine HCl 4 MG TAB PO SCH ×3 (09:05→21:17)
[2017-02-26] MEDS: Dicyclomine 20 MG TAB PO SCH ×3 (09:05→21:15)
[2017-02-26] MEDS: ALPRAZolam 0.25 MG TAB PO PRN (09:05)
[2017-02-26] MEDS: Potassium Chloride 20 MEQ TAB PO SCH (09:05)
[2017-02-26] MEDS: cycloSPORINE 0.05% Ophthalmic Droperette EA EYE SCH ×2 (09:06→21:17)
[2017-02-26] MEDS: Lisinopril 10 MG TAB PO SCH (09:06)
[2017-02-26] MEDS: Amlodipine 10 MG TAB PO SCH (21:15)
[2017-02-26] MEDS: Atorvastatin Calcium 10 MG TAB PO SCH (21:16)
[2017-02-26] MEDS: Nicotine 14 MG PATCH TD SCH (21:17)
[2017-02-26] MEDS: traZODone HCl 50 MG TAB PO SCH (21:17)
--- NOTE | 2017-02-27 02:38 | PRG ---
DATE OF SERVICE: 02/26/2017 HISTORY OF PRESENT ILLNESS: Ms. Cruz is a well-developed, well-nourished 76-year-old white female that had finished getting over her fractured prosthetic infected knee when she dislocated her right shoulder. It had to be reduced and now has an immobilizer. Unfortunately, she had to be readmitted to the hospital, be stabilized and transferred to skilled unit for physical therapy and occupational therapy. The patient states she is doing well. She is eating better. Her pain is actually much better under control and she is not constipated. She has no complaints today. OBJECTIVE: VITAL SIGNS: Today reveal blood pressure this morning 104/59, pulse 67-90, respirations 18-20, O2 sa turation 95% to 97%, T-max 98.0. GENERAL: She is a well-developed, well-nourished, thin white female in no apparent distress at this time. HEENT: Reveals normocephalic, nontraumatic cranium. Pupils are equally round and reactive. Extraoc ular movements intact. Nose and throat are clear, but dry tonight. NECK: Supple, without masses, nodes or bruits. LUNGS: Chest clear to auscultation. No rales, no rhonchi, no wheezes are heard. No cough is noted. HEART: Reveals a regular rate and rhythm without murmurs, gallops, or rubs. ABDOMEN: Soft, nontender, without organomegaly, normal bowel sounds are noted. : Deferred. EXTREMITIES: Reveal no clubbing, cyanosis. Some swelling in the knee is noted, but is much better. Right shoulder is in shoulder immobilizer. NEUROLOGIC: She is grossly intact. ASSESSMENT: 1. Status post dislocated right shoulder now in a shoulder immobilizer. 2. Recent right prosthetic knee infection, presently on oral doxycycline. 3. Urinary tract infection with yeast. 4. Nonobstructive coronary artery disease, stable. 5. Hyperlipidemia. 6. Generalized weakness. 7. Depression, stable. PLAN: 1. Continue the right shoulder immobilizer. 2. Continue present antibiotics with doxycycline for hernia. 3. Stress ulcer prophylaxis. 4. Continue Diflucan. 5. Continue decubitus precaution. 6. DVT prophylaxis. 7. Physical therapy and occupational therapy.
[2017-02-27] MEDS: Enoxaparin Sodium 30 MG/0.3 ML SYRINGE SC SCH (08:38)
[2017-02-27] MEDS: Potassium Chloride 20 MEQ TAB PO SCH (08:39)
[2017-02-27] MEDS: Saccharomyces boulardii 250 MG CAP PO SCH ×2 (08:39→20:24)
[2017-02-27] MEDS: Meloxicam 7.5 MG TAB PO SCH (08:39)
[2017-02-27] MEDS: Lisinopril 10 MG TAB PO SCH (08:40)
[2017-02-27] MEDS: Fluconazole 100 MG TAB PO SCH (08:40)
[2017-02-27] MEDS: Doxycycline 100 MG CAP PO SCH ×2 (08:40→20:25)
[2017-02-27] MEDS: Gabapentin 300 MG CAP PO SCH ×3 (08:40→20:24)
[2017-02-27] MEDS: Dicyclomine 20 MG TAB PO SCH ×3 (08:40→20:25)
[2017-02-27] MEDS: Furosemide 40 MG TAB PO SCH (08:40)
[2017-02-27] MEDS: Bupropion 150 MG XL TAB PO SCH (08:47)
[2017-02-27] MEDS: tiZANidine HCl 4 MG TAB PO SCH ×3 (08:48→20:25)
[2017-02-27] MEDS: cycloSPORINE 0.05% Ophthalmic Droperette EA EYE SCH ×2 (08:48→20:28)
--- NOTE | 2017-02-27 17:16 | PRG ---
DATE OF SERVICE: 02/27/2017. HISTORY OF PRESENT ILLNESS: Ms. Cruz is a very well-developed, well-nourished, very pleasant 76-y ear-old white female that had an infected right knee fracture prosthetic. She was doing well and unf ortunately dislocated right shoulder. It had to be reduced, now is in an immobilizer. Unfortunately , she was re-admitted to the hospital. She was stabilized and transferred to skilled unit for physic al therapy and occupational therapy. SUBJECTIVE: The patient states she is doing well. Her son and [id number] are in the room. She is eating fine. Her pain is fairly well controlled. She has no complaints today. PHYSICAL EXAMINATION: GENERAL: This is a well-developed, well-nourished, white female in no apparent distress at this time . VITAL SIGNS: Blood pressure this morning was 147/62, pulse 64-71, respirations 18-20, O2 sat 96-97%. T-max 97.5. HEENT: Reveals normocephalic, nontraumatic cranium. Pupils equal, round, and reactive. Extraocular movements intact. Nose and throat are slightly dry. NECK: Supple, without masses, nodes or bruits. CHEST: Clear to auscultation. No rales, rhonchi or wheezes are heard. CARDIOVASCULAR: Reveals a regular rate and rhythm without murmurs, gallops or rubs. ABDOMEN: Obese, soft, nontender, without organomegaly. Normal bowel sounds are noted. No rebound o r guarding is noted. : Deferred. EXTREMITIES: Reveal no clubbing, cyanosis or edema. The patient does have right shoulder immobilize r. She has no significant swelling in her knee. ASSESSMENT: 1. Status post dislocated right shoulder, now in shoulder immobilizer. 2. Recent prosthetic knee infection, presently on oral doxycycline. 3. Urinary tract infection with yeast. 4. Nonobstructive coronary artery disease, stable. 5. Hyperlipidemia. 6. Generalized weakness. 7. Depression, stable. PLAN: 1. Continue right shoulder immobilizer. 2. Continue doxycycline. 3. Stress ulcer prophylaxis. 4. Continue Diflucan. 5. Continue decubitus precautions. 6. DVT prophylaxis. 7. Physical therapy and occupational therapy.
[2017-02-27] MEDS: ALPRAZolam 0.25 MG TAB PO PRN ×2 (17:42→20:25)
[2017-02-27] MEDS: traZODone HCl 50 MG TAB PO SCH (20:25)
[2017-02-27] MEDS: Amlodipine 10 MG TAB PO SCH (20:25)
[2017-02-27] MEDS: traMADol HCl 50 MG TAB PO PRN (20:25)
[2017-02-27] MEDS: Atorvastatin Calcium 10 MG TAB PO SCH (20:27)
[2017-02-27] MEDS: Nicotine 14 MG PATCH TD SCH (20:27)
[2017-02-28] MEDS: Enoxaparin Sodium 30 MG/0.3 ML SYRINGE SC SCH (09:11)
[2017-02-28] MEDS: traMADol HCl 50 MG TAB PO PRN (09:11)
[2017-02-28] MEDS: Doxycycline 100 MG CAP PO SCH ×2 (09:12→21:05)
[2017-02-28] MEDS: Dicyclomine 20 MG TAB PO SCH ×3 (09:12→21:06)
[2017-02-28] MEDS: Saccharomyces boulardii 250 MG CAP PO SCH ×2 (09:12→21:06)
[2017-02-28] MEDS: Potassium Chloride 20 MEQ TAB PO SCH (09:12)
[2017-02-28] MEDS: Fluconazole 100 MG TAB PO SCH (09:12)
[2017-02-28] MEDS: Lisinopril 10 MG TAB PO SCH (09:12)
[2017-02-28] MEDS: Gabapentin 300 MG CAP PO SCH ×3 (09:13→21:05)
[2017-02-28] MEDS: Furosemide 40 MG TAB PO SCH (09:13)
[2017-02-28] MEDS: Meloxicam 7.5 MG TAB PO SCH (09:13)
[2017-02-28] MEDS: Bupropion 150 MG XL TAB PO SCH (09:13)
[2017-02-28] MEDS: tiZANidine HCl 4 MG TAB PO SCH ×3 (09:13→21:06)
[2017-02-28] MEDS: cycloSPORINE 0.05% Ophthalmic Droperette EA EYE SCH ×2 (09:13→21:07)
--- NOTE | 2017-02-28 13:27 | PRG ---
DATE OF SERVICE: 02/28/2017 SUBJECTIVE: Mr. Cruz is doing the same. Denies any complaints, resting comfortably, tolerating h er oral antibiotics. OBJECTIVE: VITAL SIGNS: She is afebrile, heart rate 65, respirations 20, oxygen saturation 98%, and blood press ure 127/62. CARDIOVASCULAR SYSTEM: S1, S2 plus. RESPIRATORY SYSTEM: Normal vesicular breath sounds. ABDOMEN: Soft, nontender, bowel sounds heard in all quadrants. EXTREMITIES: Without cyanosis or clubbing. Right knee incisions are healthy. IMPRESSION: 1. Status post removal of external fixator and placement of antibiotic spacers to the right knee. 2. Surgical fixation of the dislocation of her left shoulder. 3. Hypertension, well controlled. 4. Hypokalemia. 5. Dyslipidemia. 6. Gastroesophageal reflux disease. 7. History of bariatric surgery. PLAN: 1. Continue knee immobilizer when active. 2. DVT and stress ulcer prophylaxis. 3. Oral doxycycline. 4. Replace potassium. 5. Nutritional support. 6. Heart healthy diet. 7. No family at bedside. 8. Discussed with patient in detail and all questions answered.
[2017-02-28] MEDS: ALPRAZolam 0.25 MG TAB PO PRN (14:15)
[2017-02-28] MEDS: traZODone HCl 50 MG TAB PO SCH (21:06)
[2017-02-28] MEDS: Atorvastatin Calcium 10 MG TAB PO SCH (21:06)
[2017-02-28] MEDS: Nicotine 14 MG PATCH TD SCH (21:06)
[2017-02-28] MEDS: Amlodipine 10 MG TAB PO SCH (21:06)
[2017-03-01 05:47] LABS: Anion Gap 16 mmol/L (10-20); BUN (Urea Nitrogen) 37 mg/dL (9.8-20.1); Calc. Creatinine Clearance 38 mL/min (70-130); Calcium 9.2 mg/dL (7.8-10.44); Carbon Dioxide 24 mmol/L (23-31); Chloride 105 mmol/L (98-107); Estimated GFR-MDRD 49; Glucose 88 mg/dL (83-110); Potassium 4.7 mmol/L (3.5-5.1); Sodium 140 mmol/L (136-145)
[2017-03-01 05:52] LABS: #Basophils 0.1 thou/uL (0.0-0.2); #Eosinphils 0.2 thou/uL (0.0-0.7); #Lymphocytes 0.5 thou/uL (1.20-3.40); #Monocytes 0.2 thou/uL (0.11-0.59); #Neutrophils 3.3 thou/uL (1.40-6.50); %Basophils 1.3 % (0.0-1.0); %Eosinophils 5.3 % (0.0-10.0); %Lymphocytes 10.5 % (21.0-51.0); %Monocytes 4.8 % (0.0-10.0); %Neutrophils 78.2 % (42.0-75.0); Hemoglobin 13.1 g/dL (12.0-16.0); MDiff Complete? YES; Mean Corpuscular HGB CONC 30.8 g/dL (32.0-36.0); Mean Corpuscular Hemoglobin 28.7 pg (27.0-31.0); Mean Platelet Volume 7.6 fL (7.4-10.4); Ovalocytes SLIGHT = 2-5 cells (100X) (0-1/hpf); PLT Morphology Comment Appears Adequate; Platelet Count 168 thou/uL (130-400); Poikilocytosis SLIGHT = 6-15 cells (100X) (0-5/hpf); RBC Distribution Width 14.3 % (11.5-14.5); Red Blood Cell (RBC) Count 4.58 mill/uL (4.20-5.40); Target Cells SLIGHT = 2-5 cells (100X) (0-1/hpf); White Blood Cell (WBC) Count 4.3 thou/uL (4.8-10.8)
[2017-03-01] MEDS: Enoxaparin Sodium 30 MG/0.3 ML SYRINGE SC SCH (08:40)
[2017-03-01] MEDS: Lisinopril 10 MG TAB PO SCH (08:40)
[2017-03-01] MEDS: Doxycycline 100 MG CAP PO SCH ×2 (08:40→20:05)
[2017-03-01] MEDS: Dicyclomine 20 MG TAB PO SCH ×3 (08:41→20:04)
[2017-03-01] MEDS: Fluconazole 100 MG TAB PO SCH (08:41)
[2017-03-01] MEDS: Saccharomyces boulardii 250 MG CAP PO SCH ×2 (08:41→20:04)
[2017-03-01] MEDS: Gabapentin 300 MG CAP PO SCH ×3 (08:41→20:04)
[2017-03-01] MEDS: Furosemide 40 MG TAB PO SCH (08:41)
[2017-03-01] MEDS: tiZANidine HCl 4 MG TAB PO SCH ×3 (08:41→20:05)
[2017-03-01] MEDS: ALPRAZolam 0.25 MG TAB PO PRN ×2 (08:41→22:10)
[2017-03-01] MEDS: Potassium Chloride 20 MEQ TAB PO SCH (08:41)
[2017-03-01] MEDS: Meloxicam 7.5 MG TAB PO SCH (08:41)
[2017-03-01] MEDS: Bupropion 150 MG XL TAB PO SCH (08:42)
[2017-03-01] MEDS: HYDROcodone/Acetaminophen 10/325 mg Tablet PO PRN ×2 (08:42→15:17)
[2017-03-01] MEDS: cycloSPORINE 0.05% Ophthalmic Droperette EA EYE SCH ×2 (08:42→20:06)
--- NOTE | 2017-03-01 12:47 | PRG ---
DATE OF SERVICE: 03/01/2017 SUBJECTIVE: Ms. Cruz is doing well. Denies any complaints, resting comfortably, tolerating her t herapy. She is up in a wheelchair. No family at the bedside. OBJECTIVE: VITAL SIGNS: She is afebrile, heart rate 70, respirations 18, oxygen saturation 98%, blood pressure 138/63. CARDIOVASCULAR: S1, S2 plus. RESPIRATORY: Normal vesicular breath sounds. ABDOMEN: Soft, nontender, bowel sounds heard in all quadrants. EXTREMITIES: Without cyanosis or clubbing. Right knee incision is healthy. IMPRESSION: 1. Status post placement of antibiotic beads for right knee. 2. Hypertension, well controlled. 3. Hypokalemia, much improved. 4. Dyslipidemia. 5. Anxiety and depression. 6. History of bariatric surgery. PLAN: 1. Continue current medications. 2. Monitor potassium levels. 3. Heart healthy diet. 4. Physical therapy with orthopedic precautions. 5. DVT and stress ulcer prophylaxis. 6. Decubitus precautions. 7. Routine laboratory values. 8. I discussed with the patient. All questions answered.
[2017-03-01] MEDS: traZODone HCl 50 MG TAB PO SCH (20:04)
[2017-03-01] MEDS: Atorvastatin Calcium 10 MG TAB PO SCH (20:05)
[2017-03-01] MEDS: Amlodipine 10 MG TAB PO SCH (20:05)
[2017-03-01] MEDS: Nicotine 14 MG PATCH TD SCH (20:16)
[2017-03-02] MEDS: Bupropion 150 MG XL TAB PO SCH (08:59)
[2017-03-02] MEDS: tiZANidine HCl 4 MG TAB PO SCH ×3 (08:59→22:00)
[2017-03-02] MEDS: Doxycycline 100 MG CAP PO SCH ×2 (08:59→22:00)
[2017-03-02] MEDS: Lisinopril 10 MG TAB PO SCH (08:59)
[2017-03-02] MEDS: Dicyclomine 20 MG TAB PO SCH ×3 (08:59→22:00)
[2017-03-02] MEDS: Furosemide 40 MG TAB PO SCH (08:59)
[2017-03-02] MEDS: Saccharomyces boulardii 250 MG CAP PO SCH ×2 (08:59→21:59)
[2017-03-02] MEDS: Fluconazole 100 MG TAB PO SCH (08:59)
[2017-03-02] MEDS: Gabapentin 300 MG CAP PO SCH ×3 (08:59→21:59)
[2017-03-02] MEDS: Potassium Chloride 20 MEQ TAB PO SCH (09:00)
[2017-03-02] MEDS: Enoxaparin Sodium 30 MG/0.3 ML SYRINGE SC SCH (09:00)
[2017-03-02] MEDS: cycloSPORINE 0.05% Ophthalmic Droperette EA EYE SCH ×2 (09:00→21:59)
[2017-03-02] MEDS: Meloxicam 7.5 MG TAB PO SCH (09:00)
[2017-03-02] MEDS: HYDROcodone/Acetaminophen 10/325 mg Tablet PO PRN (10:15)
--- NOTE | 2017-03-02 13:27 | PRG ---
DATE OF SERVICE: 03/02/2017 SUBJECTIVE: Ms. Cruz is doing well. Denies any complaints, resting comfortably, tolerating her t herapy and her medications. OBJECTIVE: VITAL SIGNS: She is afebrile, heart rate 69, respirations 16, oxygen saturation 97%, blood pressure 127/60. CARDIOVASCULAR: S1, S2 plus. RESPIRATORY: Normal vesicular breath sounds. ABDOMEN: Soft, nontender, bowel sounds heard in all quadrants. EXTREMITIES: Without cyanosis or clubbing. Right knee incision is healing well. IMPRESSION: 1. Right knee septic arthritis status post removal of hardware and now with replacement with antibio tic beads. 2. Hypertension, well controlled. 3. Dyslipidemia. 4. Gastroesophageal reflux disease. 5. Peripheral neuropathy. 6. Depression and anxiety. 7. History of bariatric surgery. PLAN: 1. Continue current medications. 2. Nutritional support. 3. Incision care for orthopedic precautions. 4. DVT and stress ulcer prophylaxis. 5. Decubitus precautions. 6. Routine laboratory values. 7. I discussed with the patient in detail and all questions answered.
[2017-03-02] MEDS: ALPRAZolam 0.25 MG TAB PO PRN ×2 (15:45→22:00)
[2017-03-02] MEDS: Atorvastatin Calcium 10 MG TAB PO SCH (22:00)
[2017-03-02] MEDS: Amlodipine 10 MG TAB PO SCH (22:00)
[2017-03-02] MEDS: traZODone HCl 50 MG TAB PO SCH (22:00)
[2017-03-02] MEDS: Nicotine 14 MG PATCH TD SCH (22:06)
--- NOTE | 2017-03-03 08:33 | PRG ---
DATE OF SERVICE: 03/03/2017 SUBJECTIVE: Ms. Cruz is doing the same. Denies any complaints, resting comfortably. Discussed w ith nursing and again reinforced the need for her to be wearing knee immobilizer when she is out of b ed. She is doing well otherwise and no concerns or questions. OBJECTIVE: VITAL SIGNS: She is afebrile, heart rate 69, respirations 20, oxygen saturation 96%, blood pressure 146/64. CARDIOVASCULAR SYSTEM: S1, S2 plus. RESPIRATORY SYSTEM: Normal vesicular breath sounds. ABDOMEN: Soft, nontender, bowel sounds heard in all quadrants. EXTREMITIES: Without cyanosis or clubbing. Right knee incision is healthy. Discussed with nursing and she apparently had an arthrodesis of her right knee. I am still waiting to look at the surgery r eport. IMPRESSION: 1. Right knee septic arthritis status post removal of hardware, long-term IV antibiotics and now pos sible arthrodesis with fusion and extension. 2. Hypertension, well controlled. 3. Dyslipidemia. 4. Gastroesophageal reflux disease. 5. Peripheral neuropathy. 6. Depression and anxiety. 7. Recent shoulder dislocation requiring surgical fixation and irritable bowel syndrome. PLAN: 1. Continue current medications. 2. Nutritional support. 3. Physical therapy. 4. Orthopedic precautions. 5. DVT and stress ulcer prophylaxis. 6. Decubitus precautions. 7. Discharge planning. 8. No family at bedside.
[2017-03-03] MEDS: Enoxaparin Sodium 30 MG/0.3 ML SYRINGE SC SCH (09:13)
[2017-03-03] MEDS: cycloSPORINE 0.05% Ophthalmic Droperette EA EYE SCH ×2 (09:13→22:36)
[2017-03-03] MEDS: Doxycycline 100 MG CAP PO SCH ×2 (09:14→22:39)
[2017-03-03] MEDS: Dicyclomine 20 MG TAB PO SCH ×3 (09:14→22:40)
[2017-03-03] MEDS: ALPRAZolam 0.25 MG TAB PO PRN ×2 (09:14→22:40)
[2017-03-03] MEDS: Fluconazole 100 MG TAB PO SCH (09:14)
[2017-03-03] MEDS: tiZANidine HCl 4 MG TAB PO SCH ×3 (09:14→22:39)
[2017-03-03] MEDS: Potassium Chloride 20 MEQ TAB PO SCH (09:15)
[2017-03-03] MEDS: HYDROcodone/Acetaminophen 10/325 mg Tablet PO PRN (09:15)
[2017-03-03] MEDS: Furosemide 40 MG TAB PO SCH (09:15)
[2017-03-03] MEDS: Bupropion 150 MG XL TAB PO SCH (09:15)
[2017-03-03] MEDS: Gabapentin 300 MG CAP PO SCH ×3 (09:16→22:37)
[2017-03-03] MEDS: Saccharomyces boulardii 250 MG CAP PO SCH ×2 (09:16→22:39)
[2017-03-03] MEDS: Lisinopril 10 MG TAB PO SCH (09:16)
[2017-03-03] MEDS: Meloxicam 7.5 MG TAB PO SCH (09:16)
[2017-03-03] MEDS: Nicotine 14 MG PATCH TD SCH (22:37)
[2017-03-03] MEDS: traZODone HCl 50 MG TAB PO SCH (22:39)
[2017-03-03] MEDS: Amlodipine 10 MG TAB PO SCH (22:39)
[2017-03-03] MEDS: Atorvastatin Calcium 10 MG TAB PO SCH (22:40)
[2017-03-04] MEDS: Enoxaparin Sodium 30 MG/0.3 ML SYRINGE SC SCH (08:13)
[2017-03-04] MEDS: Doxycycline 100 MG CAP PO SCH ×2 (08:14→20:48)
[2017-03-04] MEDS: Meloxicam 7.5 MG TAB PO SCH (08:14)
[2017-03-04] MEDS: Potassium Chloride 20 MEQ TAB PO SCH (08:17)
[2017-03-04] MEDS: Lisinopril 10 MG TAB PO SCH (08:17)
[2017-03-04] MEDS: Saccharomyces boulardii 250 MG CAP PO SCH ×2 (08:17→20:48)
[2017-03-04] MEDS: Bupropion 150 MG XL TAB PO SCH (08:17)
[2017-03-04] MEDS: tiZANidine HCl 4 MG TAB PO SCH ×3 (08:17→20:48)
[2017-03-04] MEDS: Furosemide 40 MG TAB PO SCH (08:18)
[2017-03-04] MEDS: cycloSPORINE 0.05% Ophthalmic Droperette EA EYE SCH ×2 (08:18→20:46)
[2017-03-04] MEDS: Fluconazole 100 MG TAB PO SCH (08:18)
[2017-03-04] MEDS: Dicyclomine 20 MG TAB PO SCH ×3 (08:19→20:49)
[2017-03-04] MEDS: Gabapentin 300 MG CAP PO SCH ×3 (08:19→20:48)
[2017-03-04] MEDS: ALPRAZolam 0.25 MG TAB PO PRN ×2 (11:10→20:48)
--- NOTE | 2017-03-04 16:37 | PRG ---
DATE OF SERVICE: 03/04/2017 SUBJECTIVE: Ms. Cruz is doing well. Denies any complaints, resting comfortably. She is wearing her knee immobilizer. OBJECTIVE: VITAL SIGNS: She is afebrile, heart rate is 77, respirations 20, oxygen saturation 94%, blood pressu re 120/67. CARDIOVASCULAR: S1, S2 plus. RESPIRATORY: Normal vesicular breath sounds. ABDOMEN: Soft, nontender, bowel sounds heard in all quadrants. EXTREMITIES: Without cyanosis or clubbing. Right knee and leg in an immobilizer. IMPRESSION: 1. Status post right knee arthrodesis. 2. Hypertension, well controlled. 3. Dyslipidemia. 4. Resolved hypokalemia. 5. Peripheral neuropathy. 6. Irritable bowel syndrome. PLAN: 1. Continue current medications. 2. Knee immobilizer. 3. Recheck BMP in the morning. 4. DVT and stress ulcer prophylaxis. 5. Decubitus precautions. 6. Physical therapy. 7. Discharge planning.
[2017-03-04] MEDS: Nicotine 14 MG PATCH TD SCH (20:47)
[2017-03-04] MEDS: Amlodipine 10 MG TAB PO SCH (20:49)
[2017-03-04] MEDS: Atorvastatin Calcium 10 MG TAB PO SCH (20:49)
[2017-03-04] MEDS: traZODone HCl 50 MG TAB PO SCH (20:49)
[2017-03-05 05:56] LABS: Anion Gap 14 mmol/L (10-20); BUN (Urea Nitrogen) 41 mg/dL (9.8-20.1); Calc. Creatinine Clearance 36 mL/min (70-130); Calcium 9.3 mg/dL (7.8-10.44); Carbon Dioxide 26 mmol/L (23-31); Chloride 102 mmol/L (98-107); Estimated GFR-MDRD 47; Glucose 91 mg/dL (83-110); Potassium 4.4 mmol/L (3.5-5.1); Sodium 138 mmol/L (136-145)
[2017-03-05] MEDS: Meloxicam 7.5 MG TAB PO SCH (10:12)
[2017-03-05] MEDS: Furosemide 40 MG TAB PO SCH (10:12)
[2017-03-05] MEDS: Saccharomyces boulardii 250 MG CAP PO SCH ×2 (10:12→20:35)
[2017-03-05] MEDS: tiZANidine HCl 4 MG TAB PO SCH ×3 (10:13→20:35)
[2017-03-05] MEDS: Potassium Chloride 20 MEQ TAB PO SCH (10:13)
[2017-03-05] MEDS: Gabapentin 300 MG CAP PO SCH ×3 (10:13→20:35)
[2017-03-05] MEDS: Dicyclomine 20 MG TAB PO SCH ×3 (10:13→20:35)
[2017-03-05] MEDS: Bupropion 150 MG XL TAB PO SCH (10:14)
[2017-03-05] MEDS: Lisinopril 10 MG TAB PO SCH (10:14)
[2017-03-05] MEDS: Doxycycline 100 MG CAP PO SCH ×2 (10:15→20:35)
[2017-03-05] MEDS: Enoxaparin Sodium 30 MG/0.3 ML SYRINGE SC SCH (10:16)
[2017-03-05] MEDS: Fluconazole 100 MG TAB PO SCH (10:17)
[2017-03-05] MEDS: cycloSPORINE 0.05% Ophthalmic Droperette EA EYE SCH ×2 (10:18→20:34)
--- NOTE | 2017-03-05 12:03 | PRG ---
DATE OF SERVICE: 03/05/2017 SUBJECTIVE: Mr. Cruz is doing the same. Still having episodes of confusion. Denies any complain ts, tolerating her immobilizer. OBJECTIVE: VITAL SIGNS: She is afebrile, heart rate 70, respirations 14, oxygen saturation 97%, and blood press ure is 108/53. CARDIOVASCULAR SYSTEM: S1, S2 plus. RESPIRATORY SYSTEM: Normal vesicular breath sounds. ABDOMEN: Soft, nontender, bowel sounds heard in all quadrants. EXTREMITIES: Without cyanosis or clubbing. LABORATORY VALUES: Sodium 138, potassium 4.4, BUN and creatinine 41 and 1.13. IMPRESSION: 1. Status post right knee arthrodesis after prolonged treatment for septic arthritis. 2. Hypertension. 3. Dyslipidemia. 4. Gastroesophageal reflux disease. 5. Irritable bowel syndrome. 6. Depression and anxiety. 7. Fluctuating cognition. PLAN: 1. Continue current medications. 2. Nutritional support. 3. DVT and stress ulcer prophylaxis. 4. Decubitus precautions. 5. Incision care. 6. Knee immobilizer. 7. Orthopedic precautions. 8. Physical therapy. 9. Discharge planning. 10. No family at bedside.
[2017-03-05] MEDS: HYDROcodone/Acetaminophen 10/325 mg Tablet PO PRN (12:56)
[2017-03-05] MEDS: Atorvastatin Calcium 10 MG TAB PO SCH (20:35)
[2017-03-05] MEDS: ALPRAZolam 0.25 MG TAB PO PRN (20:35)
[2017-03-05] MEDS: Amlodipine 10 MG TAB PO SCH (20:35)
[2017-03-05] MEDS: traZODone HCl 50 MG TAB PO SCH (20:35)
[2017-03-05] MEDS: Nicotine 14 MG PATCH TD SCH (20:41)
[2017-03-06] MEDS: cycloSPORINE 0.05% Ophthalmic Droperette EA EYE SCH ×2 (08:02→21:10)
[2017-03-06] MEDS: Doxycycline 100 MG CAP PO SCH ×2 (08:04→21:11)
[2017-03-06] MEDS: Saccharomyces boulardii 250 MG CAP PO SCH ×2 (08:05→21:10)
[2017-03-06] MEDS: Bupropion 150 MG XL TAB PO SCH (08:05)
[2017-03-06] MEDS: Gabapentin 300 MG CAP PO SCH ×3 (08:05→21:11)
[2017-03-06] MEDS: Fluconazole 100 MG TAB PO SCH (08:05)
[2017-03-06] MEDS: Dicyclomine 20 MG TAB PO SCH ×3 (08:06→21:11)
[2017-03-06] MEDS: tiZANidine HCl 4 MG TAB PO SCH ×3 (08:06→21:11)
[2017-03-06] MEDS: Lisinopril 10 MG TAB PO SCH (08:06)
[2017-03-06] MEDS: Potassium Chloride 20 MEQ TAB PO SCH (08:06)
[2017-03-06] MEDS: Meloxicam 7.5 MG TAB PO SCH (08:06)
[2017-03-06] MEDS: Enoxaparin Sodium 30 MG/0.3 ML SYRINGE SC SCH (08:07)
[2017-03-06] MEDS: Furosemide 40 MG TAB PO SCH (08:07)
[2017-03-06] MEDS: HYDROcodone/Acetaminophen 10/325 mg Tablet PO PRN ×2 (08:11→12:22)
--- NOTE | 2017-03-06 13:19 | PRG ---
DATE OF SERVICE: 03/06/2017 SUBJECTIVE: Ms. Cruz is doing well. Denies any complaints, up in her chair, tolerating her nebul izer, still having waxing and waning cognitive function. OBJECTIVE: VITAL SIGNS: She is afebrile, heart rate 83, respirations 19, oxygen saturation 94%, and blood press ure 108/53. CARDIOVASCULAR SYSTEM: S1, S2 plus. RESPIRATORY SYSTEM: Normal vesicular breath sounds. ABDOMEN: Soft, nontender, bowel sounds heard in all quadrants. EXTREMITIES: Without cyanosis or clubbing. IMPRESSION: 1. Right knee arthrodesis. 2. Hypertension. 3. Dyslipidemia. 4. Irritable bowel syndrome. 5. Peripheral neuropathy. 6. Depression and anxiety. PLAN: 1. Continue current medications. 2. Immobilizer with orthopedic precautions. 3. Physical therapy. 4. DVT and stress ulcer prophylaxis. 5. Decubitus precautions. 6. Routine laboratory values. 7. Discharge planning.
[2017-03-06] MEDS: Atorvastatin Calcium 10 MG TAB PO SCH (21:11)
[2017-03-06] MEDS: traZODone HCl 50 MG TAB PO SCH (21:11)
[2017-03-06] MEDS: Amlodipine 10 MG TAB PO SCH (21:11)
[2017-03-06] MEDS: ALPRAZolam 0.25 MG TAB PO PRN (21:11)
[2017-03-06] MEDS: Nicotine 14 MG PATCH TD SCH (21:14)
[2017-03-07] MEDS: Enoxaparin Sodium 30 MG/0.3 ML SYRINGE SC SCH (08:16)
[2017-03-07] MEDS: Saccharomyces boulardii 250 MG CAP PO SCH ×2 (08:18→20:48)
[2017-03-07] MEDS: Bupropion 150 MG XL TAB PO SCH (08:18)
[2017-03-07] MEDS: Gabapentin 300 MG CAP PO SCH ×3 (08:18→20:48)
[2017-03-07] MEDS: tiZANidine HCl 4 MG TAB PO SCH ×3 (08:18→20:48)
[2017-03-07] MEDS: Doxycycline 100 MG CAP PO SCH ×2 (08:18→20:48)
[2017-03-07] MEDS: Furosemide 40 MG TAB PO SCH (08:19)
[2017-03-07] MEDS: Lisinopril 10 MG TAB PO SCH (08:19)
[2017-03-07] MEDS: Meloxicam 7.5 MG TAB PO SCH (08:19)
[2017-03-07] MEDS: Fluconazole 100 MG TAB PO SCH (08:19)
[2017-03-07] MEDS: Dicyclomine 20 MG TAB PO SCH ×3 (08:19→20:48)
[2017-03-07] MEDS: Potassium Chloride 20 MEQ TAB PO SCH (08:19)
[2017-03-07] MEDS: cycloSPORINE 0.05% Ophthalmic Droperette EA EYE SCH ×2 (08:20→20:47)
--- NOTE | 2017-03-07 11:55 | RAD ---
TWO VIEWS RIGHT SHOULDER: Date: 03-07-17 Comparison: 02-16-17 History: Pain. FINDINGS: There is a right shoulder arthroplasty demonstrating dislocation. The humeral head is dislocated supe riorly with respect to the glenoid component. Post reduction imaging advised. IMPRESSION: Dislocated right shoulder arthroplasty. POS: [facility]
[2017-03-07] MEDS: HYDROcodone/Acetaminophen 10/325 mg Tablet PO PRN (12:05)
--- NOTE | 2017-03-07 16:05 | PRG ---
DATE OF SERVICE: 03/07/2017 SUBJECTIVE: Ms. Portillo is doing well. She managed to dislocate her right shoulder again. Informed Lizzeth Baptiste. He is going to see her this afternoon and he is going to try to reduce it and try to convin ce her to keep using the shoulder sling. He, otherwise, may have to do surgery to put in retaining l ining. He states that family is aware that Ms. Cruz is slowly declining and that there is just no t a lot more to do. OBJECTIVE: VITAL SIGNS: She is afebrile, heart rate 79, respirations 18, oxygen saturation 97%, blood pressure 130/63. CARDIOVASCULAR SYSTEM: S1, S2 plus. RESPIRATORY SYSTEM: Normal vesicular breath sounds. ABDOMEN: Soft, nontender, bowel sounds heard in all quadrants. EXTREMITIES: Without cyanosis or clubbing. Right knee in an immobilizer. Evidence for right humeru s dislocation superiorly and anteriorly noted. IMPRESSION: 1. Right shoulder dislocation. 2. Right knee arthrodesis. 3. Hypertension, well controlled. 4. Dyslipidemia. 5. Gastroesophageal reflux disease with irritable bowel syndrome. 6. Peripheral neuropathy. 7. Anxiety and depression. PLAN: 1. Follow up with Dr. Baptiste today. 2. Continue oral antibiotics. 3. Knee immobilizer. 4. Orthopedic precautions. 5. Nutritional support. 6. Physical therapy. 7. Discharge planning. 8. Poor long-term prognosis.
[2017-03-07] MEDS: traZODone HCl 50 MG TAB PO SCH (20:48)
[2017-03-07] MEDS: ALPRAZolam 0.25 MG TAB PO PRN (20:48)
[2017-03-07] MEDS: Amlodipine 10 MG TAB PO SCH (20:48)
[2017-03-07] MEDS: Nicotine 14 MG PATCH TD SCH (20:49)
[2017-03-07] MEDS: Atorvastatin Calcium 10 MG TAB PO SCH (20:49)
[2017-03-08] MEDS: cycloSPORINE 0.05% Ophthalmic Droperette EA EYE SCH ×2 (09:21→19:52)
[2017-03-08] MEDS: Gabapentin 300 MG CAP PO SCH ×3 (09:22→19:50)
[2017-03-08] MEDS: Saccharomyces boulardii 250 MG CAP PO SCH ×2 (09:22→19:51)
[2017-03-08] MEDS: Doxycycline 100 MG CAP PO SCH ×2 (09:22→19:51)
[2017-03-08] MEDS: Enoxaparin Sodium 30 MG/0.3 ML SYRINGE SC SCH (09:22)
[2017-03-08] MEDS: traMADol HCl 50 MG TAB PO PRN (09:23)
[2017-03-08] MEDS: Bupropion 150 MG XL TAB PO SCH (09:23)
[2017-03-08] MEDS: tiZANidine HCl 4 MG TAB PO SCH ×3 (09:24→19:51)
[2017-03-08] MEDS: Furosemide 40 MG TAB PO SCH (09:24)
[2017-03-08] MEDS: Potassium Chloride 20 MEQ TAB PO SCH (09:24)
[2017-03-08] MEDS: Fluconazole 100 MG TAB PO SCH (09:24)
[2017-03-08] MEDS: Lisinopril 10 MG TAB PO SCH (09:24)
[2017-03-08] MEDS: Meloxicam 7.5 MG TAB PO SCH (09:24)
[2017-03-08] MEDS: Dicyclomine 20 MG TAB PO SCH ×3 (09:24→19:51)
--- NOTE | 2017-03-08 13:00 | PRG ---
DATE OF SERVICE: 03/08/2017 Ms. Cruz is doing the same, but having more episodes of depression and crying. She was seen by Or thopedics yesterday and had her shoulder reduced. She has an jhonny wrap along with a sling, but she ap parently is not able to follow commands. I discussed with Dr. Baptiste and he said that there is really not much more to do for her and he stated that he has had long discussions with her family and her fa jeremías is apparently aware that her options are very limited at this point. OBJECTIVE: VITAL SIGNS: She is afebrile, heart rate 66, respirations 18, oxygen saturation 97%, blood pressure 118/61. CARDIOVASCULAR: S1, S2 plus. RESPIRATORY: Normal vesicular breath sounds. ABDOMEN: Soft, nontender, bowel sounds heard in all quadrants. EXTREMITIES: Without cyanosis or clubbing. Right knee in an immobilizer. Right arm in a sling. IMPRESSION: 1. Right knee arthrodesis for septic arthritis status post knee replacement. 2. Recurrent right shoulder dislocation, status post reduction and placement on a sling on an Jhonny wr ap. 3. Hypertension, well controlled. 4. Depression. We will increase Zoloft. 5. Irritable bowel syndrome. 6. Coronary artery disease. 7. Dyslipidemia. PLAN: 1. Increase Zoloft to 150. 2. Continue orthopedic precautions. 3. Nutritional support. 4. DVT and stress ulcer prophylaxis. 5. Discharge planning. 6. Poor long-term prognosis. 7. No family at bedside.
[2017-03-08] MEDS: ALPRAZolam 0.25 MG TAB PO PRN (14:31)
[2017-03-08] MEDS: Amlodipine 10 MG TAB PO SCH (19:51)
[2017-03-08] MEDS: traZODone HCl 50 MG TAB PO SCH (19:51)
[2017-03-08] MEDS: Atorvastatin Calcium 10 MG TAB PO SCH (19:51)
[2017-03-08] MEDS: Nicotine 14 MG PATCH TD SCH (19:52)
[2017-03-09] MEDS: HYDROcodone/Acetaminophen 10/325 mg Tablet PO PRN (01:33)
[2017-03-09] MEDS: Enoxaparin Sodium 30 MG/0.3 ML SYRINGE SC SCH (09:01)
[2017-03-09] MEDS: Gabapentin 300 MG CAP PO SCH ×3 (09:01→21:16)
[2017-03-09] MEDS: Doxycycline 100 MG CAP PO SCH ×2 (09:01→21:17)
[2017-03-09] MEDS: Saccharomyces boulardii 250 MG CAP PO SCH ×2 (09:02→21:16)
[2017-03-09] MEDS: Furosemide 40 MG TAB PO SCH (09:03)
[2017-03-09] MEDS: tiZANidine HCl 4 MG TAB PO SCH ×3 (09:03→21:16)
[2017-03-09] MEDS: Meloxicam 7.5 MG TAB PO SCH (09:03)
[2017-03-09] MEDS: Bupropion 150 MG XL TAB PO SCH (09:04)
[2017-03-09] MEDS: cycloSPORINE 0.05% Ophthalmic Droperette EA EYE SCH ×2 (09:04→21:17)
[2017-03-09] MEDS: Lisinopril 10 MG TAB PO SCH (09:04)
[2017-03-09] MEDS: Potassium Chloride 20 MEQ TAB PO SCH (09:04)
[2017-03-09] MEDS: Dicyclomine 20 MG TAB PO SCH ×3 (09:06→21:17)
[2017-03-09] MEDS: Fluconazole 100 MG TAB PO SCH (09:06)
--- NOTE | 2017-03-09 11:35 | PRG ---
DATE OF SERVICE: 03/09/2017 SUBJECTIVE: Ms. Cruz is doing the same. She has her right arm up above her head, this is the arm which was dislocated twice and she is supposed to be having it in the sling. She has the sling, but she has pulled it out. I again explained to her the importance of being compliant. Her Zoloft was increased yesterday due to what seems like worsening depression. OBJECTIVE: VITAL SIGNS: She is afebrile, heart rate 72, respirations 18, oxygen saturation 97%, and blood press ure 124/60. CARDIOVASCULAR SYSTEM: S1, S2 plus. RESPIRATORY SYSTEM: Normal vesicular breath sounds. ABDOMEN: Soft, nontender, bowel sounds heard in all quadrants. EXTREMITIES: Without cyanosis or clubbing. Right leg in an immobilizer. IMPRESSION: 1. Right knee septic arthritis status post removal of hardware and arthrodesis. 2. Right shoulder dislocation recurrent status post reduction and placement. Initially, patient is noncompliant. 3. Coronary artery disease. 4. Hypertension. 5. Dyslipidemia. 6. Gastroesophageal reflux disease. 7. Irritable bowel syndrome. 8. Depression. PLAN: 1. Continue oral doxycycline. 2. Orthopedic precautions. 3. Encourage patient to be compliant. 4. Increase Zoloft for depression. 5. DVT and stress ulcer prophylaxis. 6. Decubitus precautions. 7. Routine laboratory values. 8. halfway placement. 9. Poor long-term prognosis.
[2017-03-09] MEDS: ALPRAZolam 0.25 MG TAB PO PRN (13:37)
[2017-03-09] MEDS: Amlodipine 10 MG TAB PO SCH (21:16)
[2017-03-09] MEDS: Atorvastatin Calcium 10 MG TAB PO SCH (21:17)
[2017-03-09] MEDS: Nicotine 14 MG PATCH TD SCH (21:17)
[2017-03-09] MEDS: traZODone HCl 50 MG TAB PO SCH (21:17)
[2017-03-10 08:53] VITALS: BP 135/63; TEMP 95.8
--- NOTE | 2017-03-10 08:58 | PRG ---
DATE OF SERVICE: 03/10/2017 SUBJECTIVE: Ms. Cruz is doing well except still having episodes of crying spells. I had a long d iscussion with her hvmfcnmm-yx-brg, Marianne, today over the phone. They understand that Ms. Gissel reed cannot be managed at home and she needs 24/7 care. She also has significant orthopedic restriction s and then with her cognitive decline, she is not able to understand her limitations. They agree wit h her being placed in a [place] [facility] [place] and cohpfwsa-[id number] understands that this most likely will be lo ng-term placement. Information has been sent to [facility], which is their choice. OBJECTIVE: VITAL SIGNS: She is afebrile, heart rate 73, respirations 18, oxygen saturation 99%, blood pressure 126/59. CARDIOVASCULAR: S1, S2 plus. RESPIRATORY: Normal vesicular breath sounds. ABDOMEN: Soft, nontender, bowel sounds heard in all quadrants. EXTREMITIES: Without cyanosis or clubbing. Right knee in an immobilizer, right arm in a sling. IMPRESSION: 1. Right knee arthrodesis, status post removal of hardware for septic arthritis. 2. Right shoulder recurrent dislocation, status post reduction and placement in a sling. 3. Coronary artery disease. 4. Cognitive decline. 5. Hypertension. 6. Dyslipidemia. 7. Irritable bowel syndrome. PLAN: 1. Continue doxycycline. 2. Check on the need for fluconazole and discontinue it. 3. Recheck laboratory values in the morning. 4. Trial of low dose Aricept. 5. DVT and stress ulcer prophylaxis. 6. Orthopedic precautions. 7. Discharge planning discussed with family in detail and all questions answered.
[2017-03-10] MEDS: cycloSPORINE 0.05% Ophthalmic Droperette EA EYE SCH (09:00)
[2017-03-10] MEDS: Doxycycline 100 MG CAP PO SCH (09:00)
[2017-03-10] MEDS: Enoxaparin Sodium 30 MG/0.3 ML SYRINGE SC SCH (09:00)
[2017-03-10] MEDS: Bupropion 150 MG XL TAB PO SCH (09:01)
[2017-03-10] MEDS: Dicyclomine 20 MG TAB PO SCH (09:01)
[2017-03-10] MEDS: Furosemide 40 MG TAB PO SCH (09:01)
[2017-03-10] MEDS: tiZANidine HCl 4 MG TAB PO SCH (09:01)
[2017-03-10] MEDS: Saccharomyces boulardii 250 MG CAP PO SCH (09:02)
[2017-03-10] MEDS: Potassium Chloride 20 MEQ TAB PO SCH (09:02)
[2017-03-10] MEDS: Gabapentin 300 MG CAP PO SCH (09:02)
[2017-03-10] MEDS: Meloxicam 7.5 MG TAB PO SCH (09:02)
[2017-03-10] MEDS: Lisinopril 10 MG TAB PO SCH (09:02)
--- NOTE | 2017-03-10 19:22 | DIS ---
DATE OF ADMISSION: 02/21/2017 DATE OF DISCHARGE: 03/10/2017 PRINCIPAL DIAGNOSIS: Right knee septic arthritis status post removal of hardware and recurrently wit h presence of surgical arthrodesis. SECONDARY DIAGNOSES: 1. Coronary artery disease without angina. 2. Hypertension, well controlled. 3. Dyslipidemia. 4. Peripheral neuropathy. 5. Irritable bowel syndrome. 6. Depression and anxiety. 7. Cognitive dysfunction. 8. Recurrent right shoulder dislocation, mainly due to noncompliance with wearing the shoulder sling . 9. Status post bariatric surgery. COMPLICATIONS: None. ADVERSE REACTIONS: None. PROCEDURES: None. CONSULTATIONS: Physical therapy. HOSPITAL COURSE: The patient was admitted on 02/21/2017 after undergoing arthrodesis of her right kn ee, status post removal of hardware and chronic multiple courses of IV antibiotics. Her right knee i s doing well. She has been wearing her right knee immobilizer with repeated instructions and monitor ing. She also had right shoulder dislocation which had to be reduced by Dr. Baptiste, but she dislocated it again and thankfully she had an appointment with Dr. Baptiste that afternoon and he was able to reduc e it. She has not been compliant with her sling and Jhonny wrap was done and she was not compliant with that either. She has had slow but steady decline in her cognitive function and she has been having increasing crying spells. I have increased her Zoloft without much improvement. She was deemed to h ave reached maximum medical improvement and family stated that they cannot take care of her at home, which I agree and so she has been placed at [facility]. I had a long discussion with her acmkjidk-[id number]-mrx, Marianne. I explained to them the limitations of the correction and they underst and. The plan is to consult psychiatry in the correction, trial of Aricept for possible early franki ntia, continue Zoloft and Wellbutrin, continue the knee immobilizer and the right shoulder sling, PT/ OT evaluation, and monitor her closely. I did advise them that with her not following instructions a nd be in a nursing facility, there is increased risk for falls. We will try to manage it as well as possible with bed alarm and everything, but they understand. PHYSICAL EXAMINATION: VITAL SIGNS: On the day of discharge, she is afebrile, heart rate is 62, respirations 18, oxygen sat uration 98%, blood pressure 135/63. CARDIOVASCULAR: S1, S2 plus. RESPIRATORY: Normal vesicular breath sounds. ABDOMEN: Soft, nontender, bowel sounds heard in all quadrants. EXTREMITIES: Without cyanosis or clubbing. Right knee with the knee immobilizer. Right shoulder morgan pposed to be in a sling, but again she does not have it in the sling. CENTRAL NERVOUS SYSTEM: Generalized weakness with some cognitive dysfunction. DISCHARGE MEDICATIONS: Tylenol 650 q.4 h. p.r.n., Xanax 0.25 mg b.i.d. p.r.n. for anxiety, Norvasc 1 0 mg daily at night, Lipitor 10 mg daily at night, Wellbutrin 300 mg p.o. daily in the morning, Resta sis eyedrops 1 drop to each eye b.i.d., Bentyl 20 mg t.i.d., Aricept 5 mg at night, doxycycline 100 m g b.i.d., Lovenox 30 mg subcutaneous daily, Lasix 40 mg daily, Neurontin 600 mg t.i.d., Zestril 10 mg daily, Meloxicam 7.5 mg daily, Nicoderm patch will be reduced to 14 mg patch daily for 1 week and th en will be stopped, Protonix 40 mg daily, Florastor 250 b.i.d., Zoloft 150 mg daily, Zanaflex has bee n changed to 4 mg b.i.d. p.r.n. Pain medication will be tramadol 100 mg q.i.d. p.r.n., trazodone 50 mg p.o. at bedtime p.r.n. insomni a. Orthopedic restrictions with right knee immobilizer and right shoulder sling, PT/OT evaluate and aryan t, nutritional support, routine laboratory values, heart healthy diet. She will be followed by me at [facility]. Total time spent on this discharge 35 minutes.
[2017-03-10] MEDS ORDERED: Donepezil HCl 5 MG TAB PO SCH (21:00)
== END 2017-03-10 13:15 | DRG 560 ==
LOC: NAV ACUTE 16:45
PROVIDERS: ADMIT Internal Medicine; ATTEND Internal Medicine
DX: Z47.89 Encounter for other orthopedic aftercare (principal); N39.0 Urinary tract infection, site not specified; G62.9 Polyneuropathy, unspecified; E78.5 Hyperlipidemia, unspecified; I10 Essential (primary) hypertension; I25.10 Atherosclerotic heart disease of native coronary artery without angina pectoris; Z96.611 Presence of right artificial shoulder joint; K58.9 Irritable bowel syndrome, unspecified; F41.8 Other specified anxiety disorders; Z98.84 Bariatric surgery status; M24.411 Recurrent dislocation, right shoulder; Z96.612 Presence of left artificial shoulder joint; Z87.891 Personal history of nicotine dependence; K21.9 Gastro-esophageal reflux disease without esophagitis; Z98.1 Arthrodesis status; E87.6 Hypokalemia
CPT/HCPCS: 36415; 36416; 80048; 85025; J1650